=== PATIENT | female | born 1950 | race Caucasian/White ===

== ENCOUNTER 2019-12-22 18:43 | Emergency (ER) | payer OTHER ==
[2019-12-22] MEDS ORDERED: LORazepam 2 MG/ML VIAL ONE (19:20)
--- NOTE | 2019-12-22 19:33 | RAD REPORT ---
EXAM DESCRIPTION: Brenden Single View12/22/2019 7:27 pm CLINICAL HISTORY: Hypertension/slurred speech COMPARISON: 2010 FINDINGS: The lungs appear clear of acute infiltrate. The heart is normal size IMPRESSION: No acute abnormalities displayed
--- NOTE | 2019-12-22 19:33 | RAD REPORT ---
EXAM DESCRIPTION: CT - Head Brain Wo Cont - 12/22/2019 7:18 pm CLINICAL HISTORY: Slurred speech COMPARISON: September 2019 MRI TECHNIQUE: Computed axial tomography of the head was obtained. IV contrast was not requested. All CT scans are performed using dose optimization technique as appropriate and may include automated exposure control or mA/KV adjustment according to patient size. FINDINGS: An intracranial bleed is not seen . The ventricles are normal in caliber. No extra-axial fluid collection is noted. Mild to moderate low-density areas within periventricular, deep and subcortical white matter likely r epresent ischemic changes secondary to small vessel disease. Fluid within the sinuses/ mastoids is not seen. IMPRESSION: No acute intracranial abnormality is seen. If patient's symptoms persist MRI of the bra in would be recommended. Ran Page of the emergency room notified 727 PM December 22, 2019
[2019-12-22 19:42] LABS: Absolute Lymphocytes (CBC) 1.3 K/uL (0.7-4.9); Basophils % 0.2 % (0-1.3); Hematocrit 27.8 % (36.0-45.0); Lymphocytes % 11.3 % (15.3-44.8); RBC Red Blood Cell Count 3.09 M/uL (3.86-4.86)
[2019-12-22] MEDS ORDERED: NA CHLORIDE 0.9% 1,000 ML ONE (19:42)
[2019-12-22 19:43] LABS: Protime INR 0.85
[2019-12-22] MEDS ORDERED: ALTEPLASE 100 ML IV ONE (19:57)
[2019-12-22 19:59] LABS: ALT/SGPT 10 U/L (12-78); AST/SGOT 14 U/L (15-37); Albumin 2.2 g/dL (3.4-5.0); Alkaline Phosphatase 103 U/L (45-117); BUN Blood Urea Nitrogen 22 mg/dL (7-18); Bicarbonate 26 mmol/L (21-32); Bilirubin Direct < 0.1 mg/dL (0-0.2); Bilirubin Total 0.3 mg/dL (0.2-1.0); Glucose Level 96 mg/dL (74-106); Magnesium 1.8 mg/dL (1.8-2.4); NT PRO-BNP 7336 pg/mL (<125); Potassium 3.9 mmol/L (3.5-5.1); Protein, Total 5.7 g/dL (6.4-8.2); Sodium Level 141 mmol/L (136-145); Troponin (Emerg Dept Use Only) 0.06 ng/mL (0.0-0.045)
[2019-12-22] MEDS ORDERED: NA CHLORIDE 0.9% 100 ML IV ONE ×2 (20:14→20:59)
--- NOTE | 2019-12-22 20:40 | ER ---
Nurse's Notes [facility] Name: Talia Nielson Age: 69 yrs Sex: Female : 1950 Arrival Date: 12/22/2019 Time: 18:47 Bed 6 Private MD: Diagnosis: Aphasia following cerebral infarction Presentation: 12/21 18:47 Chief complaint: EMS states: Pt from [place], staff reports that pt has unequal ph pupils and slurred speech, hx dysphagia and slurred speech, pupils equal for EMS, BGL 124, pt asleep upon arrival. Coronavirus screen: Patient denies a cough. Patient denies shortness of breath or difficulty breathing. Patient denies measured and/or subjective temperature greater than 100.4F prior to today's visit. Patient denies travel on a cruise ship or to a country the [facility] currently lists as an affected area. Patient denies contact with known and/or suspected case of COVID-19. Ebola Screen: No symptoms or risks identified at this time. No acute neurological deficit is noted. The patients blood glucose was checked before arriving to the hospital and was found to be normal. Initial Sepsis Screen: Does the patient meet any 2 criteria? No. Patient's initial sepsis screen is negative. Does the patient have a suspected source of infection? No. Patient's initial sepsis screen is negative. Risk Assessment: Do you want to hurt yourself or someone else? Patient reports no desire to harm self or others. Onset of symptoms was December 22, 2019. 18:47 Method Of Arrival: EMS: [facility] 18:47 Acuity: LIZZ 3 ph Triage Assessment: 21:31 The onset of the patients symptoms was December 22, 2019 at 17:30. General: Appears in no rv apparent distress. General: Behavior is restless. Pain: Unable to use pain scale. Patient is disoriented. Neuro: Reports. Cardiovascular: Patient's skin is warm and dry. Stroke Activation: Symptom onset < 3 hours Physician: Stroke Attending; Name: ; Notified At: ; Arrived At: Physician: Chief Stroke Resident; Name: ; Notified At: ; Arrived At: Physician: Stroke Resident; Name: ; Notified At: ; Arrived At: Physician: ED Attending; Name: ; Notified At: ; Arrived At: Physician: ED Resident; Name: ; Notified At: ; Arrived At: Historical: - Allergies: 19:17 No Known Allergies; ph - Home Meds: 19:17 aspirin 81 mg Oral chew 1 tab once daily [Active]; atorvastatin 10 mg oral tab 1 tab ph once daily [Active]; metformin 500 mg Oral tab 1 tab 2 times per day [Active]; Nystatin Topical [Active]; olanzapine 10 mg oral tab 1 tab once daily [Active]; omeprazole 20 mg Oral cpDR 1 cap once daily [Active]; Remeron 15 mg Oral tab 1 tab once daily [Active]; risperidone 0.25 mg oral tab 1 tabs 2 times per day [Active]; Tegretol XR 200 mg Oral Tb12 1 tab daily [Active]; Tegretol XR 400 mg Oral Tb12 1 tab daily [Active]; - PMHx: 19:17 UTI; Schizophrenia; Alzheimers; dysphagia; Hypothyroidism; Diabetes - NIDDM; ph Hyperlipidemia; major depressive disorder; Anxiety; ataxia; slurred speech; Hypertension; COPD; GERD; constipation; - Immunization history:: Adult Immunizations unknown. - Social history:: Smoking status: unknown. Screenin:13 Abuse screen: Denies threats or abuse. Denies injuries from another. Nutritional rv screening: No deficits noted. Tuberculosis screening: No symptoms or risk factors identified. Fall Risk None identified. Assessment: 18:52 Reassessment: ERP at bedside to assess pt. ph 19:30 VAN Scoring: Arm Drift: Minor drift Visual Disturbance: Aphasia: Patient exhibits both rv expressive and receptive aphasia. Provider notified of +VAN scoring. The patient has not been NPO before screening. The patient is alert, and able to follow commands. The patient exhibits slurred or garbled speech. The patient is exhibiting difficulty speaking. The patient is exhibiting difficulty understanding words. The patient is able to swallow own secretions with no drooling or need for suction. Patient tolerated one teaspoon of water. No drooling, immediate coughing, gurgling, or clearing of the throat was noted. The patient tolerated 90mL of water. No drooling, immediate coughing, gurgling, or clearing of the throat was noted. The patient passed the bedside swallow screening. Oral medications may be given as ordered. Contact Physician for further diet orders. Provider notified of bedside swallow screening results: Ran TOTH. General: Appears in no apparent distress. Behavior is calm, cooperative. Pain: Unable to use pain scale. Patient is disoriented. Neuro: Level of Consciousness is confused. Cardiovascular: Patient's skin is warm and dry. Rhythm is sinus tachycardia. Respiratory: Airway is patent Breath sounds are clear bilaterally. Derm: Skin with poor turgor. 20:00 T-PA (Activase) Screening: Indications: Definite evidence of stroke, ischemic, embolic, rv or hypertensive: Yes. Treatment will start within 4.5 hours onset of symptoms: Yes. No evidence of intracranial hemorrhage or CT of head and no evidence of peripheral hemorrhage or recent CVA: Yes. 21:00 Reassessment: talked to patient's sister, Leola Ortiz, updated on the treatment and rv plan of care. 21:20 Reassessment: given report to Charissa Schafer of [facility]. rv 21:49 Reassessment: Patient appears in no apparent distress at this time. no change from rv prior assessment after TPA administration. 21:59 Reassessment: given report to [facility]. transferred to [facility] via EMS. rv Vital Signs: 18:47 BP 114 / 73; Pulse 106; Resp 18; Temp 97.6(TE); Pulse Ox 100% on R/A; Weight 34.75 kg rv (M); 19:30 BP 126 / 69; Pulse 94; Resp 20; Pulse Ox 96% on R/A; rv 19:45 BP 113 / 67; Pulse 88; Resp 21; Pulse Ox 99% on 2 lpm NC; rv 20:00 BP 93 / 50; Pulse 81; Resp 14; Pulse Ox 100% on 2 lpm NC; rv 20:30 BP 144 / 68; Pulse 95; Resp 16; Pulse Ox 100% on 2 lpm NC; rv 20:45 BP 161 / 106; Pulse 97; Resp 17; Pulse Ox 100% on 2 lpm NC; rv 21:00 BP 128 / 70; Pulse 97; Resp 14; Pulse Ox 100% on 2 lpm NC; rv 21:15 BP 131 / 67; Pulse 85; Resp 13; Pulse Ox 100% on 2 lpm NC; rv 21:30 BP 122 / 61; Pulse 87; Resp 14; Pulse Ox 100% on 2 lpm NC; rv Creighton Coma Score: 19:30 Eye Response: spontaneous(4). Verbal Response: confused(4). Motor Response: localizes rv pain(5). Total: 13. 20:00 Eye Response: spontaneous(4). Verbal Response: confused(4). Motor Response: localizes rv pain(5). Total: 13. 21:00 Eye Response: spontaneous(4). Verbal Response: confused(4). Motor Response: localizes rv pain(5). Total: 13. 21:49 Eye Response: spontaneous(4). Verbal Response: confused(4). Motor Response: localizes rv pain(5). Total: 13. NIH Stroke Scale Scores: 19:25 NIHSS Score: 6 cp 19:30 NIHSS Score: 22 rv ED Course: 18:47 Patient arrived in ED. ph 18:47 Ran Correia PA is PHCP. cp 18:47 Luis Borges MD is Attending Physician. cp 19:00 Patient has correct armband on for positive identification. Placed in gown. Bed in low rv position. Side rails up X2. 19:00 desk monitor on. Pulse ox on. NIBP on. rv 19:03 Triage completed. ph 19:18 CT Head Brain wo Cont In Process Unspecified. EDMS 19:18 Arm band placed on Patient placed. ph 19:28 XRAY Chest (1 view) In Process Unspecified. EDMS 19:30 Inserted saline lock: 20 gauge in left forearm, using aseptic technique. Blood rv collected. 19:40 Inserted saline lock: 20 gauge in right forearm, using aseptic technique. rv 19:53 Niraj Smith RN is Primary Nurse. rv 19:57 Contacted [facility] transfer center for initiate transfer. Spoke with Jazmine AMADOR. [facility] 20:48 Valentino Burgess MD is Attending Physician. cp 22:00 No provider procedures requiring assistance completed. IV is patent, with fluids rv infusing freely, with good blood return, right and left arm IV access.. Patient transferred, IV remains in place. Administered Medications: 19:40 Drug: Ativan 0.5 mg Route: IVP; Site: left forearm; rv 21:58 Follow up: Response: No adverse reaction rv 20:00 Drug: Alteplase {Co-Signature: bb (Josefa Flowers RN).} Route: IV Thrombolytics; Rate: rv calculated rate; 21:00 Follow up: Response: No adverse reaction rv 21:00 Follow up: Response: No adverse reaction rv 21:58 Follow up: Response: No change in condition rv 20:20 CANCELLED (Physician Discretion): NS 0.9% 1000 ml IV at 75 ml/hr continuous cp 21:35 Drug: foLIC Acid 1 mg Route: IVPB; Site: right forearm; rv 21:58 Follow up: IV Status: Completed infusion rv Point of Care Testing: Blood Glucose: 19:30 Blood Glucose: 92 mg/dL; rv Ranges: Outcome: 20:40 ER care complete, transfer ordered by . cp 22:00 Transferred by ground EMS to [facility], Transfer form completed. rv X-rays sent w/ patient. 22:00 Condition: stable 22:00 Instructed on the need for transfer. 22:10 Patient left the ED. rv NIH Stroke Scale - NIH Stroke Score Date: 12/22/2019 Time: 19:25 Total Score = 6 1a. Level of Consciousness (LOC) - 0(Alert) 1b. Level of Consciousness (LOC) (Year \T\ Age) - 2(Neither) 1c. LOC Commands (Open \T\ Closes Eyes/Self Propelled Mining Machine Operator) - 0(Both) 2. Best Gaze (Lateral Gaze Paresis) - 0(Normal) 3. Visual Field Loss - 0(No visual loss) 4. Facial Palsy - 0(Normal) 5a. Left Arm: Motor (10-second hold) - 0(No drift) 5b. Right Arm: Motor (10-second hold) - 0(No drift) 6a. Left Leg: Motor (5-second hold - always test supine) - 0(No drift) 6b. Right Leg: Motor (5-second hold - always test supine) - 0(No drift) 7. Limb Ataxia (finger/nose \T\ heel/holman - test with eyes open) - 0(Absent) 8. Sensory Loss (pinprick arms/legs/face) - 0(Normal) 9. Best Language: Aphasia (description/naming/reading) - 2(Severe aphasia) 10. Dysarthria (speech clarity - read or repeat words) - 2(Severe) 11. Extinction and Inattention (visual/tactile/auditory/spatial/personal) - 0(No abnormality) Initials: cp NIH Stroke Scale - NIH Stroke Score Date: 12/22/2019 Time: 19:30 Total Score = 22 1a. Level of Consciousness (LOC) - 1(Not Alert) 1b. Level of Consciousness (LOC) (Year \T\ Age) - 2(Neither) 1c. LOC Commands (Open \T\ Closes Eyes/Self Propelled Mining Machine Operator) - 2(Neither) 2. Best Gaze (Lateral Gaze Paresis) - 2(Forced deviation) 3. Visual Field Loss - 2(Complete hemianopia) 4. Facial Palsy - 2(Partial paralysis) 5a. Left Arm: Motor (10-second hold) - 2(Drift, some effort against gravity) 5b. Right Arm: Motor (10-second hold) - 0(No drift) 6a. Left Leg: Motor (5-second hold - always test supine) - 1(Drift) 6b. Right Leg: Motor (5-second hold - always test supine) - 1(Drift) 7. Limb Ataxia (finger/nose \T\ heel/holman - test with eyes open) - 2(Present in two limbs) 8. Sensory Loss (pinprick arms/legs/face) - 0(Normal) 9. Best Language: Aphasia (description/naming/reading) - 2(Severe aphasia) 10. Dysarthria (speech clarity - read or repeat words) - 2(Severe) 11. Extinction and Inattention (visual/tactile/auditory/spatial/personal) - 1(Present) Initials: rv Signatures: Dispatcher [employer] EDNan Mckee RN RN ph Bren, Ran, Niraj Daley cp, RN RN Brendan, [place] [address] Josefa Flowers RN Corrections: (The following items were deleted from the chart) 19:58 18:47 BP 114 / 73; Pulse 106bpm; Resp 18bpm; Pulse Ox 100% RA; Temp 97.6F rv Temporal; 76.6 kg; ph 21:34 19:15 Inserted saline lock: 20 gauge in left forearm, using aseptic technique. rv Blood collected. rv 21:34 19:30 Inserted saline lock: 20 gauge in right forearm, using aseptic technique. rv rv 21:45 19:15 Blood Glucose: Blood Glucose Reading=92 mg/dL. rv rv
--- NOTE | 2019-12-22 20:40 | EDPHYS ---
Physician Documentation [facility] Name: Talia Nielson Age: 69 yrs Sex: Female : 1950 Arrival Date: 12/22/2019 Time: 18:47 Bed 6 Private MD: ED Physician Valentino Burgess HPI: 12/21 19:14 This 69 yrs old Female presents to ER via EMS with complaints of Slurred cp Speech. 19:14 The patient presents to the emergency department with a speech or higher order brain cp function problem, aphasia, that is moderate. 19:15 The patient's problem is reported as dysphasia, incoherent speech. Onset: The cp symptoms/episode began/occurred today, last known normal was 1729. Duration: The episode is continuous. 19:15 Associated signs and symptoms: Pertinent positives: agitation. Patient's baseline: cp Neuro: alert but confused, Motor: no deficits, Ambulation: walks with assist only, Speech: slurred, but speech is comprehensible . Historical: - Allergies: 19:17 No Known Allergies; ph - Home Meds: 19:17 aspirin 81 mg Oral chew 1 tab once daily [Active]; atorvastatin 10 mg oral tab 1 tab ph once daily [Active]; metformin 500 mg Oral tab 1 tab 2 times per day [Active]; Nystatin Topical [Active]; olanzapine 10 mg oral tab 1 tab once daily [Active]; omeprazole 20 mg Oral cpDR 1 cap once daily [Active]; Remeron 15 mg Oral tab 1 tab once daily [Active]; risperidone 0.25 mg oral tab 1 tabs 2 times per day [Active]; Tegretol XR 200 mg Oral Tb12 1 tab daily [Active]; Tegretol XR 400 mg Oral Tb12 1 tab daily [Active]; - PMHx: 19:17 UTI; Schizophrenia; Alzheimers; dysphagia; Hypothyroidism; Diabetes - NIDDM; ph Hyperlipidemia; major depressive disorder; Anxiety; ataxia; slurred speech; Hypertension; COPD; GERD; constipation; - Immunization history:: Adult Immunizations unknown. - Social history:: Smoking status: unknown. ROS: 19:20 Constitutional: Negative for fever. cp 19:20 Neuro: Positive for speech changes. cp 19:20 Unable to obtain ROS due to patient's speech is incomprehensible. Exam: 19:25 Constitutional: The patient appears in no acute distress, alert, awake, cp non-diaphoretic, non-toxic, well developed, well nourished, afebrile 19:25 Head/Face: Normocephalic, atraumatic. cp 19:25 Eyes: Periorbital structures: appear normal, Pupils: equal, round, and reactive to light and accomodation, Extraocular movements: intact throughout, Conjunctiva: normal, no exudate, no injection, Lids and lashes: appear normal, bilaterally. 19:25 ENT: External ear(s): are unremarkable, Ear canal(s): are normal, clear, TM's: dullness, bilaterally, Nose: is normal, Mouth: Lips: dry, Oral mucosa: dry, Posterior pharynx: Airway: no evidence of obstruction, patent. 19:25 Chest/axilla: Inspection: normal, Palpation: is normal, no crepitus, no tenderness. 19:25 Cardiovascular: Rate: tachycardic, Rhythm: regular, JVD: is not appreciated. 19:25 Respiratory: the patient does not display signs of respiratory distress, Respirations: normal, no use of accessory muscles, labored breathing, is not present, Breath sounds: are clear throughout, no decreased breath sounds, no stridor, no wheezing. 19:25 Abdomen/GI: Inspection: abdomen appears normal, Bowel sounds: active, all quadrants, Palpation: abdomen is soft and non-tender, in all quadrants. 19:28 Radiologist reports: no acute findings cp 20:00 ECG was reviewed by the Attending Physician. cp Vital Signs: 18:47 BP 114 / 73; Pulse 106; Resp 18; Temp 97.6(TE); Pulse Ox 100% on R/A; Weight 34.75 kg rv (M); 19:30 BP 126 / 69; Pulse 94; Resp 20; Pulse Ox 96% on R/A; rv 19:45 BP 113 / 67; Pulse 88; Resp 21; Pulse Ox 99% on 2 lpm NC; rv 20:00 BP 93 / 50; Pulse 81; Resp 14; Pulse Ox 100% on 2 lpm NC; rv 20:30 BP 144 / 68; Pulse 95; Resp 16; Pulse Ox 100% on 2 lpm NC; rv 20:45 BP 161 / 106; Pulse 97; Resp 17; Pulse Ox 100% on 2 lpm NC; rv 21:00 BP 128 / 70; Pulse 97; Resp 14; Pulse Ox 100% on 2 lpm NC; rv 21:15 BP 131 / 67; Pulse 85; Resp 13; Pulse Ox 100% on 2 lpm NC; rv 21:30 BP 122 / 61; Pulse 87; Resp 14; Pulse Ox 100% on 2 lpm NC; rv NIH Stroke Scale Scores: 19:25 NIHSS Score: 6 cp 19:30 NIHSS Score: 22 rv Corinne Coma Score: 19:30 Eye Response: spontaneous(4). Verbal Response: confused(4). Motor Response: localizes rv pain(5). Total: 13. 20:00 Eye Response: spontaneous(4). Verbal Response: confused(4). Motor Response: localizes rv pain(5). Total: 13. 21:00 Eye Response: spontaneous(4). Verbal Response: confused(4). Motor Response: localizes rv pain(5). Total: 13. 21:49 Eye Response: spontaneous(4). Verbal Response: confused(4). Motor Response: localizes rv pain(5). Total: 13. MDM: 18:54 Patient medically screened. cp 19:52 Physician consultation: Allen Arambula MD was called at 19:50, was contacted at 19:50, cp regarding consult, patient's condition, recommends administration of tpa and transfer to higher level of care. 20:25 Data reviewed: vital signs, nurses notes, lab test result(s), EKG, radiologic studies, CT scan, plain films. 21:00 Physician consultation: was contacted at 20:35, regarding regarding transfer, to [facility]. consult, patient's condition, DR Harshad Kan, neurologist, will accept patient for continued care. 12/21 18:54 Order name: Basic Metabolic Panel cp 12/21 18:54 Order name: CBC with Diff cp 12/21 18:54 Order name: LFT's; Complete Time: 20:19 cp 12/21 20:19 Interpretation: Normal except: AST 14; ALT 10; TP 5.7; ALB 2.2; A/G 0.6. cp 12/21 18:54 Order name: Magnesium; Complete Time: 20:19 cp 12/21 18:54 Order name: NT PRO-BNP; Complete Time: 20:19 cp 12/21 18:54 Order name: PT-INR; Complete Time: 19:58 cp 12/21 18:54 Order name: Troponin (emerg Dept Use Only); Complete Time: 20:19 cp 12/21 20:19 Interpretation: Abnormal: TROPED 0.06. cp 12/21 18:54 Order name: XRAY Chest (1 view); Complete Time: 19:58 cp 12/21 18:55 Order name: Basic Metabolic Panel; Complete Time: 20:19 EDMS 12/21 20:19 Interpretation: Normal except: BUN 22; CA 8.0. cp 12/21 18:55 Order name: CBC with Automated Diff; Complete Time: 19:58 EDMS 12/21 19:58 Interpretation: Normal except: WBC 11.7; RBC 3.09; HGB 9.1; HCT 27.8; MCV 89.8; PLT cp 483; RDW 16.4; MPV 7.0; GUS% 80.2; LYM% 11.3; NEUT A 9.4. 12/21 18:55 Order name: CT Head Brain wo Cont; Complete Time: 19:58 cp 12/21 19:58 Interpretation: Report reviewed. 12/21 19:45 Order name: Glucose, Ancillary Testing; Complete Time: 19:58 EDMS 12/21 18:54 Order name: EKG; Complete Time: 18:55 cp 12/21 18:54 Order name: Cardiac monitoring; Complete Time: 19:20 cp 12/21 18:54 Order name: EKG - Nurse/Tech; Complete Time: 19:48 cp 12/21 18:54 Order name: IV Saline Lock; Complete Time: 20:42 cp 12/21 18:54 Order name: Labs collected and sent; Complete Time: 20:42 cp 12/21 18:54 Order name: O2 Per Protocol; Complete Time: 19:20 cp 12/21 18:54 Order name: O2 Sat Monitoring; Complete Time: 19:20 cp 12/21 19:02 Order name: Swallow Screen; Complete Time: 19:40 cp EC:00 Rate is 96 beats/min. Rhythm is regular. SC interval is normal. QRS interval is normal. cp QT interval is prolonged at 368 msec. T waves are Inverted in leads aVL, V2, V3, V4, V5, V6. Administered Medications: 19:40 Drug: Ativan 0.5 mg Route: IVP; Site: left forearm; rv 21:58 Follow up: Response: No adverse reaction rv 20:00 Drug: Alteplase {Co-Signature: shannon (Josefa Flowers RN).} Route: IV Thrombolytics; Rate: rv calculated rate; 21:00 Follow up: Response: No adverse reaction rv 21:00 Follow up: Response: No adverse reaction rv 21:58 Follow up: Response: No change in condition rv 20:20 CANCELLED (Physician Discretion): NS 0.9% 1000 ml IV at 75 ml/hr continuous cp 21:35 Drug: foLIC Acid 1 mg Route: IVPB; Site: right forearm; rv 21:58 Follow up: IV Status: Completed infusion rv Point of Care Testing: Blood Glucose: 19:30 Blood Glucose: 92 mg/dL; rv Ranges: Critical Glucose Levels:Adult <50 mg/dl or >400 mg/dl <40 mg/dl or >180 mg/dl Disposition: 21:00 Chart complete. cp 12/22 00:05 Co-signature as Attending Physician, Valentino Burgess MD I agree with the assessment and tw4 plan of care. Disposition: 12/22/19 20:40 Transfer ordered to [facility]. Diagnosis is Aphasia following cerebral infarction. - Reason for transfer: Higher level of care. - Accepting physician is DR Harshad Kan. - Condition is Stable. - Problem is new. - Symptoms are unchanged. NIH Stroke Scale - NIH Stroke Score Date: 12/22/2019 Time: 19:25 Total Score = 6 1a. Level of Consciousness (LOC) - 0(Alert) 1b. Level of Consciousness (LOC) (Year \T\ Age) - 2(Neither) 1c. LOC Commands (Open \T\ Closes Eyes/Surgery Technician) - 0(Both) 2. Best Gaze (Lateral Gaze Paresis) - 0(Normal) 3. Visual Field Loss - 0(No visual loss) 4. Facial Palsy - 0(Normal) 5a. Left Arm: Motor (10-second hold) - 0(No drift) 5b. Right Arm: Motor (10-second hold) - 0(No drift) 6a. Left Leg: Motor (5-second hold - always test supine) - 0(No drift) 6b. Right Leg: Motor (5-second hold - always test supine) - 0(No drift) 7. Limb Ataxia (finger/nose \T\ heel/holman - test with eyes open) - 0(Absent) 8. Sensory Loss (pinprick arms/legs/face) - 0(Normal) 9. Best Language: Aphasia (description/naming/reading) - 2(Severe aphasia) 10. Dysarthria (speech clarity - read or repeat words) - 2(Severe) 11. Extinction and Inattention (visual/tactile/auditory/spatial/personal) - 0(No abnormality) Initials: cp NIH Stroke Scale - NIH Stroke Score Date: 12/22/2019 Time: 19:30 Total Score = 22 1a. Level of Consciousness (LOC) - 1(Not Alert) 1b. Level of Consciousness (LOC) (Year \T\ Age) - 2(Neither) 1c. LOC Commands (Open \T\ Closes Eyes/Surgery Technician) - 2(Neither) 2. Best Gaze (Lateral Gaze Paresis) - 2(Forced deviation) 3. Visual Field Loss - 2(Complete hemianopia) 4. Facial Palsy - 2(Partial paralysis) 5a. Left Arm: Motor (10-second hold) - 2(Drift, some effort against gravity) 5b. Right Arm: Motor (10-second hold) - 0(No drift) 6a. Left Leg: Motor (5-second hold - always test supine) - 1(Drift) 6b. Right Leg: Motor (5-second hold - always test supine) - 1(Drift) 7. Limb Ataxia (finger/nose \T\ heel/holman - test with eyes open) - 2(Present in two limbs) 8. Sensory Loss (pinprick arms/legs/face) - 0(Normal) 9. Best Language: Aphasia (description/naming/reading) - 2(Severe aphasia) 10. Dysarthria (speech clarity - read or repeat words) - 2(Severe) 11. Extinction and Inattention (visual/tactile/auditory/spatial/personal) - 1(Present) Initials: rv Signatures: Dispatcher [employer] Nan Rojas RN RN ph Ran Correia PA PA Valentino Cuellar MD MD tw4 Niraj Smith RN RN rv Josefa Flowers RN bb Corrections: (The following items were deleted from the chart) 04/17 20:19 20:19 Normal except: BUN 22. cp cp 20:20 19:35 NS 0.9% 1000 ml IV at 75 ml/hr continuous ordered. cp cp 21:08 20:40 12/22/2019 20:[address] [facility]. Diagnosis is Aphasia following cerebral infarction. Reason for transfer: Higher level of care. Accepting physician is . Condition is Stable. Problem is new. Symptoms are unchanged. cp 22:10 21:08 12/22/2019 20:40 Transfer ordered to [facility]. Diagnosis is Aphasia following cerebral infarction. Reason for transfer: Higher level of care. Accepting physician is DR Harshad Kan. Condition is Stable. Problem is new. Symptoms are unchanged. cp
[2019-12-22] MEDS ORDERED: FOLIC ACID 5 MG/ML VIAL ONE (21:45)
[2019-12-22 22:21] VITALS: TEMP 97.6
[2019-12-22 22:25] VITALS: O2SAT 100
[2019-12-22 22:31] VITALS: BP 122/61
--- NOTE | 2019-12-24 07:41 | EKG ---
Test Date: 2019-12-22 Test Time: 19:44:48 Substation Designer: SONJA MEASUREMENT RESULTS: Intervals: Rate: 96 RI: 140 QRSD: 74 QT: 368 QTc: 464 Rolfe: P: 61 RI: 140 QRS: 36 T: 140 INTERPRETIVE STATEMENTS: Normal sinus rhythm T wave abnormality, consider anterolateral ischemia Prolonged QT Abnormal ECG Compared to ECG 05/25/2011 07:57:45 Prolonged QT interval now present Sinus bradycardia no longer present T-wave abnormality still present Possible ischemia still present Electronically Signed On 12-24-19 07:39:13 CDT by Ketan Boss
== END 2019-12-22 22:10 | disposition short-term general hospital (02) ==
LOC: ER 18:43
DX: I69.320 Aphasia following cerebral infarction (principal); I10 Essential (primary) hypertension; E11.9 Type 2 diabetes mellitus without complications; E03.9 Hypothyroidism, unspecified; J44.9 Chronic obstructive pulmonary disease, unspecified; Z79.82 Long term (current) use of aspirin; G30.9 Alzheimer's disease, unspecified; F02.80 Dementia in other diseases classified elsewhere, unspecified severity, without behavioral disturbance, psychotic disturbance, mood disturbance, and anxiety; F20.9 Schizophrenia, unspecified
CPT/HCPCS: 96365; 92977; 93005; 85025; 80048; 36415; 83735; 85610; 82947; 80076; 84484; 83880; 70450; 71045; 96375; 99291; J2997; J7030

== ENCOUNTER 2020-01-18 19:14 | Inpatient (IN) | payer OTHER ==
--- OUTSIDE RECORDS SUMMARY | 2020-01-18 19:17 | XMS REPORT | Clinical Summary ---
:1950 Author Organization [facility] Address [address] [place] [address] Care Team Providers Name Role Phone Unavailable Primary Care Provider Unavailable Allergies No Known Allergies Medications Medication Sig Dispensed Refills Start Date End Date Status nystatin Apply topically 0 Acti ve (MYCOSTATIN) 2 (two) times 100,000 unit/gram daily Apply to cream buttocks topically for irritation . OLANZapine Take 10 mg by 0 Activ e (ZYPREXA) 10 MG mouth nightly. tablet omeprazole Take 20 mg by 0 Activ e (PRILOSEC) 20 MG mouth daily. capsule mirtazapine Take 15 mg by 0 Acti ve (REMERON) 15 MG mouth nightly. tablet risperiDONE Take 0.25 mg by 0 Ac tive (RISPERDAL) 0.25 MG mouth 2 (two) tabletIndications: times daily. schizophrenia atorvastatin Take 10 mg by 0 Dis continued (LIPITOR) 10 MG mouth daily. 0 tablet metFORMIN Take 500 mg by 0 Disco ntinued (GLUCOPHAGE) 500 MG mouth 2 (two) 0 tablet times daily with breakfast and dinner. Active Problems Problem Noted Date Tissue plasminogen activator (tPA) administered at ot er facility within 12/23/2019 24 hours before current admission Acute ischemic stroke 12/23/2019 Diabetes mellitus 12/23/2019 Hyperlipidemia 12/23/2019 Hypertension 12/23/2019 Hypothyroidism 12/23/2019 Schizophrenia 12/23/2019 Tremor 12/23/2019 Encounters Date Type Specialty Care Team Description 12/25/2019 Telephone Emergency Mando Laboy, Medicine RN 12/23/2019 Travel 12/23/2019 Orders Only General Internal Medicine 12/22/2019 - Hospital General Internal Lucius Patricia, Acute isc hemic stroke (HCC); 12/26/2019 Encounter Medicine MD Received tissue plasminogen activator (t -PA) less than 24 hours prior to arrival; Genia Croft Essential hyp ertension; MD Jesus Acute encephalopathy; Estephania Chapin Undifferentiate d schizophrenia (HCC); MD Rayne Tremor; Jong Lan Acute cystitis without hematuria MD Porfirio after 01/17/2019 Social History Tobacco Use Types Packs/Day Years Used Date Never Smoker Smokeless Tobacco: Current User Chew Sex Assigned at Date Recorded Not on file Job Start Date Occupation Industry Not on file Not on file Not on file Travel History Travel Start Travel End No recent travel history available. Last Filed Vital Signs Vital Sign Reading Time Taken Blood Pressure 151/68 12/26/2019 11:22 AM CDT Pulse 99 12/26/2019 11:22 AM CDT Temperature 36.2 C (97.1 F) 12/26/2019 11:22 AM CDT Respiratory Rate 17 12/26/2019 11:22 AM CDT Oxygen Saturation 99% 12/26/2019 11:22 AM CDT Inhaled Oxygen Concentration - - Weight 38.7 kg (85 lb 5.1 oz) 12/22/2019 11:45 PM CDT Height 139.7 cm (4' 7") 12/22/2019 11:45 PM CDT Body Mass Index 19.83 12/22/2019 11:45 PM CDT Plan of Treatment Not on file Procedures Procedure Name Priority Date/Time Associated Comments Diagnosis RHYTHM STRIP - SCAN 12/27/2019 2:00 PM CDT CBC W/PLT COUNT & Routine 12/26/2019 3:54 Result s for this AUTO DIFFERENTIAL AM CDT procedure are in the results section. FERRITIN Routine 12/26/2019 3:54 Results for this AM CDT procedure are i n the results section. IRON, TIBC, % SAT. Routine 12/26/2019 3:54 Resul ts for this (WITHOUT FERRITIN) AM CDT procedure are in the results section. CBC W/PLT COUNT & Routine 12/26/2019 3:54 Result s for this AUTO DIFFERENTIAL AM CDT procedure are in the results section. XR ESOPH SWALLOW Routine 12/25/2019 1:09 Results for this FUNCTION W/CINE VIDEO PM CDT proced ure are in the results section. POCT-GLUCOSE METER Routine 12/25/2019 12:18 Resul ts for this PM CDT procedure are i n the results section. POCT-GLUCOSE METER Routine 12/25/2019 7:56 Resul ts for this AM CDT procedure are i n the results section. CBC W/PLT COUNT & Routine 12/25/2019 4:30 Result s for this AUTO DIFFERENTIAL AM CDT procedure are in the results section. CBC W/PLT COUNT & Routine 12/25/2019 4:30 Result s for this AUTO DIFFERENTIAL AM CDT procedure are in the results section. TROPONIN I Add-On 12/25/2019 3:47 Results for this AM CDT procedure are i n the results section. BASIC METABOLIC PANEL Routine 12/25/2019 3:47 Re sults for this (7) AM CDT procedure are i n the results section. ECG 12-LEAD Routine 12/24/2019 9:52 PM CDT Procedure Note - Interface, External Ris In - 12/24/2019 10:02 PM CDT Ventricular Rate 97 BPM Atrial Rate 97 BPM P-R Interval 136 ms QRS Duration 72 ms Q-T Interval 350 ms QTC Calculation(Bazett) 444 ms P [place] 67 degrees R [place] 39 degrees T [place] 148 degrees Sinus rhythm with occasional Premature ventricular complexes T wave abnormality, consider lateral ischemia Abnormal ECG When compared with ECG of 12:30, Premature ventricular comple xes are now Present ST no longer depressed in An terior leads ECG 12-LEAD STAT 12/24/2019 9:52 PM CDT Resu lts for this procedure are i n the results section . POCT-GLUCOSE METER Routine 12/24/2019 8:32 PM CDT Results for this procedure are i n the results section . CBC W/PLT COUNT & AUTO Routine 12/24/2019 9:01 AM CDT Results for this DIFFERENTIAL procedure are i n the results section . CBC W/PLT COUNT & AUTO Routine 12/24/2019 9:01 AM CDT Results for this DIFFERENTIAL procedure are i n the results section . TROPONIN I Add-On 12/24/2019 9:00 AM CDT Resu lts for this procedure are i n the results section . BASIC METABOLIC PANEL (7) Routine 12/24/2019 9:00 AM CDT Results for this procedure are i n the results section . POCT-GLUCOSE METER Routine 12/24/2019 7:37 AM CDT Results for this procedure are i n the results section . ECHOCARDIOGRAM REPORT - SCAN 12/23/2019 9:[address] BRAIN WITHOUT IV CONTRAST Routine 12/23/2019 6:38 PM CDT Results for this procedure are i n the results section . POCT-GLUCOSE METER Routine 12/23/2019 5:16 PM CDT Results for this procedure are i n the results section . ECG 12-LEAD Routine 12/23/2019 12:30 PM CDT Procedure Note - Interface, External Ris In - 12/23/2019 12:47 PM CDT Ventricular Rate 86 BPM Atrial Rate 86 BPM P-R Interval 140 ms QRS Duration 76 ms Q-T Interval 394 ms QTC Calculation(Bazett) 471 ms P [place] 73 degrees R [place] 43 degrees T [place] 151 degrees Normal sinus rhythm ST & Marked T wave abnormali ty, consider anterolateral ischemia Prolonged QT Abnormal ECG ECG 12-LEAD Routine 12/23/2019 12:30 PM CDT Resu lts for this procedure are i n the results section . POCT-GLUCOSE METER Routine 12/23/2019 12:12 PM CDT Results for this procedure are i n the results section . URINALYSIS W/ REFLEX URINE Routine 12/23/2019 11:50 AM CDT Results for this CULTURE procedure are i n the results section . URINE CULTURE Routine 12/23/2019 11:50 AM CDT Res ults for this procedure are i n the results section . SPUTUM CULTURE + GRAM STAIN Routine 12/23/2019 10:18 AM CDT Results for this procedure are i n the results section . XR CHEST 1 VIEW Routine 12/23/2019 10:10 AM CDT R esults for this PORTABLE/BEDSIDE procedure a re in the results section . 2D ECHO W/ DOPPLER Routine 12/23/2019 9:38 AM CDT Results for this (CW/PW/COLOR) procedure are in the results section . LACTIC ACID, ARTERIAL Routine 12/23/2019 9:25 AM CDT Results for this procedure are i n the results section . TROPONIN I Routine 12/23/2019 9:25 AM CDT Resu lts for this procedure are i n the results section . POCT-GLUCOSE METER Routine 12/23/2019 6:23 AM CDT Results for this procedure are i n the results section . CTA BRAIN Routine 12/23/2019 6:00 AM CDT Resu lts for this procedure are i n the results section . CT/CTA CAROTID Routine 12/23/2019 6:00 AM CDT Re sults for this procedure are i n the results section . LACTATE DEHYDROGENASE (LDH) Add-On 12/23/2019 3:52 AM CDT Results for this procedure are i n the results section . LIPID PANEL Routine 12/23/2019 3:52 AM CDT Resu lts for this procedure are i n the results section . CBC W/PLT COUNT & AUTO Routine 12/23/2019 12:23 AM CDT Results for this DIFFERENTIAL procedure are i n the results section . VITAMIN B12 AND FOLATE Add-On 12/23/2019 12:23 AM CDT Results for this procedure are i n the results section . VITAMIN B12 AND FOLATE Routine 12/23/2019 12:23 AM CDT Results for this procedure are i n the results section . TSH/FREE T4 IF INDICATED Routine 12/23/2019 12:23 AM CDT Results for this procedure are i n the results section . PROCALCITONIN Routine 12/23/2019 12:23 AM CDT Res ults for this procedure are i n the results section . RPR Routine 12/23/2019 12:23 AM CDT Resu lts for this procedure are i n the results section . HEPATIC FUNCTION PANEL Routine 12/23/2019 12:23 AM CDT Results for this procedure are i n the results section . HEMOGLOBIN A1C Routine 12/23/2019 12:23 AM CDT Re sults for this procedure are i n the results section . HOMOCYSTEINE Routine 12/23/2019 12:23 AM CDT Resu lts for this procedure are i n the results section . TROPONIN I Routine 12/23/2019 12:23 AM CDT Resu lts for this procedure are i n the results section . CBC W/PLT COUNT & AUTO Routine 12/23/2019 12:23 AM CDT Results for this DIFFERENTIAL procedure are i n the results section . BASIC METABOLIC PANEL (7) Routine 12/23/2019 12:23 AM CDT Results for this procedure are i n the results section . BLOOD CULTURE STAT 12/23/2019 12:23 AM CDT Res ults for this procedure are i n the results section . BLOOD CULTURE STAT 12/23/2019 12:21 AM CDT Res ults for this procedure are i n the results section . after 01/17/2019 Results RHYTHM STRIP - SCAN (12/27/2019 2:00 PM CDT) Narrative Performed At This result has an attachment that is no t available. Iron, TIBC, % sat. (without ferritin) (12/26/2019 3:54 AM CDT) Iron 40.0 40.0 - 160.0 ug/dL [facility] TIBC 161 (L) 250 - 450 ug/dL [facility] Iron % Saturation 25 20 - 55 % [facility] Specimen Blood Narrative Performed At Professor Of Special Education [place] - OLIVE Yeni [facility] Performing Organization Address City/State/Zipcode Phone Number [facility] [address] [place] [address] CENTER CBC with platelet count + automated diff (12/26/2019 3:54 AM CDT)Only the most recent of4 resultswithin the time period is included. WBC 8.5 3.5 - 10.5 K/L [facility] RBC 2.86 (L) 3.93 - 5.22 M/L [facility] Hemoglobin 8.3 (L) 11.2 - 15.7 GM/DL [facility] Hematocrit 26.0 (L) 34.1 - 44.9 % [facility] MCV 90.9 79.4 - 94.8 fL [facility] MCH 29.0 25.6 - 32.2 pg [facility] MCHC 31.9 (L) 32.2 - 35.5 GM/DL [facility] RDW 17.2 (H) 11.7 - 14.4 % [facility] Platelets 544 (H) 150 - 450 K/CU MM [facility] MPV 9.0 (L) 9.4 - 12.3 fL [facility] nRBC 0 0 - 0 /100 WBC [facility] % Neutros 64 % [facility] % Lymphs 25 % [facility] % Monos 9 % [facility] % Eos 1 % [facility] % Baso 0 % [facility] # Neutros 5.41 1.56 - 6.13 K/L [facility] # Lymphs 2.13 1.18 - 3.74 K/L [facility] # Monos 0.75 (H) 0.24 - 0.36 K/L [facility] # Eos 0.11 0.04 - 0.36 K/L [facility] # Baso 0.01 0.01 - 0.08 K/L [facility] Immature Granulocytes-Relative 1 0 - 1 % C [facility] Specimen Blood Performing Organization Address City/State/Zipcode Phone Number [facility] [address] [place] [address] CENTER Ferritin (12/26/2019 3:54 AM CDT) Ferritin 47.91 5.00 - 275.00 ng/mL [facility] Specimen Blood Narrative Performed At Professor Of Special Education ID - OLIVE W [facility] Performing Organization Address City/[facility]/Zipcode Phone Number [address] [address] CENTER [place] esoph swallow funct with cine video (12/25/2019 1:09 PM CDT) Specimen Narrative Performed At FINAL REPORT GE RIS Modified barium swallow exam with speech pathology service CLINICAL HISTORY: assess pharyngeal swal low function IMPRESSION: Please see the speech pathology service report for details. Barium contrast of multiple consistencie s is given to the patient to swallow. Fluoroscopic observation is per formed during swallowing. No aspiration is identified. Fluoro time:Two minutes Number of images: 2 Signed: Radha Joiner MD Report Verified Date/Time:12/25/2019 15:15:45 Reading Location: [facility] C013X Ortho Con sult Reading Room Procedure Note Interface, External Ris In - 12/25/2019 3:17 PM CDT FINAL REPORT Modified barium swallow exam with speech pathology service CLINICAL HISTORY: assess pharyngeal swal low function IMPRESSION: Please see the speech pathology service report for details. Barium contrast of multiple consistencie s is given to the patient to swallow. Fluoroscopic observation is per formed during swallowing. No aspiration is identified. Fluoro time: Two minutes Number of images: 2 Signed: Radha Joiner MD Report Verified Date/Time: 12/25/2019 1 5:15:45 Reading Location: [facility] C013X Ortho Con sult Reading Room Performing Organization Address City/[facility] Phone Number GE RIS POC-Glucose meter (12/25/2019 12:18 PM CDT)Only the most recent of7 results within the time period is included. POC-Glucose Meter 97Comment: : TESTED AT 70 - 110 mg/dL [address], [address]: Professor Of Special Education/Plate Hanger ID = [id number] for DELMAR WALLIS Specimen Blood Performing Organization Address [facility]/[place] [address] CENTER Troponin I (12/25/2019 3:47 AM CDT)Only the most recent of4 resultswithin the time period is included. Troponin I 0.03 0.00 - 0.03 ng/mL [facility] Specimen Blood Narrative Performed At Troponin I (TnI) levels must be interpreted [facility] in the context of the presenting symptoms and the clinical findings. Elevated TnI levels indicate myocardial damage, but are not specific for ischemic heart disease. Elevated TnI levels are seen in patients with other cardiac conditions (including myocarditis and congestive heart failure), and slight TnI elevations occur in patients with other conditions, including sepsis, renal failure, acidosis, acute neurological disease, and persistent tachyarrhythmia. Professor Of Special Education ID - ZORAN Garza Performing Organization Address [facility]/Zipcode Phone Number [facility] [address] [place] [address] CENTER Basic Metabolic Panel (12/25/2019 3:47 AM CDT)Only the most recent of3 results within the time period is included. Sodium 140 136 - 145 meq/L [facility] Potassium 4.1 3.5 - 5.1 meq/L [facility] Chloride 109 (H) 98 - 107 meq/L [facility] CO2 26 22 - 29 meq/L [facility] BUN 9 7 - 21 mg/dL [facility] Creatinine 0.55 (L) 0.57 - 1.25 mg/dL [facility] Glucose 98 70 - 105 mg/dL [facility] Calcium 7.8 (L) 8.4 - 10.2 mg/dL [facility] EGFR 109Comment: ESTIMATED GFR IS mL/min/1.73 sq m CH I [facility] NOT ACCURATE CREATININE [facility] CLEARANCE IN PREDICTING GLOMERULAR FILTRATION RATE. ESTIMATED GFR IS NOT APPLICABLE FOR DIALYSIS PATIENTS. Specimen Blood Narrative Performed At Professor Of Special Education ID - PIEL L [facility] CENTER Performing Organization Address [facility]/Zipcode Phone Number [facility] [address] [place] [address] [place] ECG 12 lead (12/24/2019 9:52 PM CDT)Only the most recent of2 resultswithin the time period is included. Specimen Narrative Performed At Ventricular Rate 97 BPM GE MUSE Atrial Rate 97 BPM P-R Interval 136 ms QRS Duration 72 ms Q-T Interval 350 ms QTC Calculation(Bazett) 444 ms P [place] 67 degrees R [place] 39 degrees T [place] 148 degrees Sinus rhythm with occasional Premature v entricular complexes T wave abnormality, consider lateral isc hemia Abnormal ECG When compared with ECG of 23-DEC-2019 12 :30, Premature ventricular complexes are now Present ST no longer depressed in Anterior leads Anterior T wave inversion has improved. Confirmed by Papa TRACY MICHAEL ([id number]) on 0 7:25:09 AM Procedure Note Interface, External Ris In - 12/25/2019 7:25 AM CDT Ventricular Rate 97 BPM Atrial Rate 97 BPM P-R Interval 136 ms QRS Duration 72 ms Q-T Interval 350 ms QTC Calculation(Bazett) 444 ms P [place] 67 degrees R [place] 39 degrees T [place] 148 degrees Sinus rhythm with occasional Premature v entricular complexes T wave abnormality, consider lateral isc hemia Abnormal ECG When compared with ECG of 23-DEC-2019 12 :30, Premature ventricular complexes are now Present ST no longer depressed in Anterior leads Anterior T wave inversion has improved. Confirmed by Papa TRACY MICHAEL ([id number]) on 12/25/2019 7:25:09 AM Performing Organization Address City/State/Zipcode Phone Number [employer] MUSE ECHOCARDIOGRAM REPORT - SCAN (12/23/2019 9:20 PM CDT) Narrative Performed At This result has an attachment that is no t available. CT brain without IV contrast (12/23/2019 6:38 PM CDT) Specimen Narrative Performed At FINAL REPORT [employer] CT, BRAIN, WITHOUT CONTRAST CLINICAL INDICATION:Stroke, follow u p COMPARISON: December 23, 2019 TECHNIQUE:Noncontrast axial CT imagi ng of the brain and skull. Coronal and sagittal reformats obtained. DOSE REDUCTION: Dose modulation, iterati ve reconstruction, and/or weight-based adjustment of the mA/kV was utilized to reduce the radiation dose to as low as reasonably a chievable. FINDINGS: Cerebral parenchyma: Global parenchymal volume loss and minimal white matter hypoattenuation. No mass, acute i ntracranial hemorrhage or acute cortical infarct. Cerebellum and brainstem: No acute findi ngs. Ventricles: No acute hydrocephalus. Extra-axial spaces: Unremarkable. Calvarium and skull base: Intact. Paranasal sinuses and mastoid air cells: Imaged chambers are without acute abnormality. Orbital contents: Included portions unre markable. Additional findings: None. IMPRESSION: No acute intracranial abnormality. Involutional and chronic microangiopathi c ischemic changes are stable. If there is persistent clinical concern for intracranial pathology, MR examination is recommended for furthe r characterization. Signed: Syd Cervantes MD Report Verified Date/Time:12/23/2019 23:55:53 Procedure Note Interface, External Ris In - 12/23/2019 11:58 PM CDT FINAL REPORT CT, BRAIN, WITHOUT CONTRAST CLINICAL INDICATION: Stroke, follow up COMPARISON: December 23, 2019 TECHNIQUE: Noncontrast axial CT imaging of the brain and skull. Coronal and sagittal reformats obtained. DOSE REDUCTION: Dose modulation, iterati ve reconstruction, and/or weight-based adjustment of the mA/kV was utilized to reduce the radiation dose to as low as reasonably a chievable. FINDINGS: Cerebral parenchyma: Global parenchymal volume loss and minimal white matter hypoattenuation. No mass, acute i ntracranial hemorrhage or acute cortical infarct. Cerebellum and brainstem: No acute findi ngs. Ventricles: No acute hydrocephalus. Extra-axial spaces: Unremarkable. Calvarium and skull base: Intact. Paranasal sinuses and mastoid air cells: Imaged chambers are without acute abnormality. Orbital contents: Included portions unre markable. Additional findings: None. IMPRESSION: No acute intracranial abnormality. Involutional and chronic microangiopathi c ischemic changes are stable. If there is persistent clinical concern for intracranial pathology, MR examination is recommended for furthe r characterization. Signed: Syd Cervantes MD Report Verified Date/Time: 12/23/2019 2 3:55:53 Performing Organization Address City/State/Zipcode Phone Number [facility] Urinalysis w/Microscopic + Reflex to Culture (12/23/2019 11:50 AM CDT) Color, UA Yellow [facility] Clarity, UA Hazy [facility] Specific [place], UA 1.029 1.001 - 1.035 [facility] pH, UA 6.0 5.0 - 8.0 [facility] Protein, UA Negative Negative [facility] Glucose, UA Negative Negative [facility] Ketones, UA Negative Negative [facility] Bilirubin, UA Negative Negative [facility] Blood, UA Negative Negative [facility] Nitrite, UA Positive (A) Negative [facility] Leukocytes, UA Large (A) Negative [facility] Urobilinogen, UA 0.2 0.2 - 1.0 mg/dL [facility] RBC, UA <1 /HPF [facility] WBC, UA 47 /HPF [facility] Bacteria, UA Few [facility] Mucus Few [facility] Squam Epithel, UA <1 /HPF [facility] Specimen Source [facility] Specimen Urine Narrative Performed At Professor Of Special Education ID - [auto] [facility] Professor Of Special Education ID - tech Performing Organization Address City/State/Zipcode Phone Number [facility] [address] [place] [address] CENTER Urine culture (12/23/2019 11:50 AM CDT) Result >100,000 col/mL Escherichia coli [facility] () [facility] Specimen Urine Organism Antibiotic Method Susceptibility Escherichia coli Amikacin <=2: Susceptibl e Escherichia coli Ampicillin + Sulbactam 4: Susce ptible Escherichia coli Aztreonam <=1: Susceptibl e Escherichia coli Cefepime <=1: Susceptibl e Escherichia coli Cefoxitin 16: Resistant Escherichia coli Ceftazidime <=1: Susceptibl e Escherichia coli Ceftriaxone <=1: Susceptibl e Escherichia coli Ertapenem <=0.5: Suscepti ble Escherichia coli Gentamicin <=1: Susceptibl e Escherichia coli Levofloxacin >=8: Resistant Escherichia coli Meropenem <=0.25: Suscept ible Escherichia coli Nitrofurantoin <=16: Susceptib le Escherichia coli Tetracycline >=16: Resistant Escherichia coli Tobramycin <=1: Susceptibl e Escherichia coli Trimethoprim + Sulfamethoxazole <=20: Susceptible Performing Organization Address City/[facility]/Zipcode Phone Number [facility] [address], [place] [id number] [place] Sputum Culture + Gram Stain (12/23/2019 10:18 AM CDT) Result 4+ Normal respiratory [facility] Gram Stain Result 3+ White blood cells seen [facility] Gram Stain Result 10-15 epithelial cells [facility] Gram Stain Result 3+ gram negative rods [facility] Specimen Sputum - Expectorated Performing Organization Address City/[facility]/Zipcode Phone Number [address] [address] [place] XR chest 1 view portable / bedside (12/23/2019 10:10 AM CDT) Specimen Narrative Performed At FINAL REPORT GE RIS Chest, portable AP view History: Encephalopathy, infection Comparison: No comparisons available for review IMPRESSION: The heart is within normal limits of siz e. No focal consolidation, sizable pleural effusion, or pneumothora x. No acute osseous abnormality. Signed: Grover Grover MD Report Verified Date/Time:12/23/2019 10:31:15 Reading Location: [facility] C013[facility] Con sult Reading Room Procedure Note Interface, External Ris In - 12/23/2019 10:33 AM CDT FINAL REPORT Chest, portable AP view History: Encephalopathy, infection Comparison: No comparisons available for review IMPRESSION: The heart is within normal limits of siz e. No focal consolidation, sizable pleural effusion, or pneumothora x. No acute osseous abnormality. Signed: Gorver Grover MD Report Verified Date/Time: 12/23/2019 1 0:31:15 Reading Location: [facility] C013 Ortho Con sult Reading Room Performing Organization Address City/State/Zipcode Phone Number GE RIS 2D Echo W/Doppler(CW/PW/Color) with saline (12/23/2019 9:38 AM CDT) Ejection Fraction [facility] ECHO HEAR TLAB [facility] Specimen Narrative Performed At Transthoracic Echocardiography Report (T TE) [facility] ECHO [facility]LAB [facility] Demographics Patient Name TALIA NIELSON Date of Study 12/23/2019 NENA [id number] Gender Female Visit Number [id number] Unknown [id number] Room Number 2C48 Number Date of Birth1950Referring Physician Lucius Patricia MD Age69 year(s)Project Geophysicist Tu Hutchinson AnalystIzosam ManningpreBlayne Carmona, Physician Procedure Type of Study TTE procedure:2DECHO W DOPPLER(CW/PW/COLOR) (Routine) Indications:Stroke work up. Clinical History HGB 26.2 HCT %DM HLD HTN HYPOTHYROIDSM Height: 55 inches Weight: 38.56 kg (85 lbs) BSA: 1.22 m^2 BMI: 19.76 kg/m^2 HR: 90 bpm BP: 102/43 mmHg Summary IV saline contrast injection was negative for a PFO (patent foramen ovale) at rest and post Valsalva . The left ventricle is chamber size (by vol index) is normal (female - LVED vol - 29-61ml/m2). Normal LV wall thickness. All of the LV segments contract normall y . Global LV systolic function normal . LVEF by Mott's method of disk assessment is normal (55-60%) . The LVEF was measured using Mott's bi-plane method of disk . Grade 1 diastolic dysfunction (impaired relaxation and low-normal LA pressure). A trace of tricuspid regurgitation. Estimated peak systolic PA pressure is 20-25 mmHg (normal range) . Peak systolic pressure may be underestimated; partial TR signal. Previous Study No prior exam available for comparison. Signature Findings Technical Quality: Technically adequate exam. Left Ventricle The left ventricle is chamber size (by vol index) is normal (female - LVED vol - 29-61ml/m2). No rmal LV wall thickness. Al l of the LV segments contract normally . Gl obal LV systolic function normal . LV EF by Mott's method of disk assessmen t is no rmal (55-60%) . Th e LVEF was measured using Mott's bi-p volodymyr me thod of disk . Gr maryjane 1 diastolic dysfunction (impaired re laxation an d low-normal LA pressure). Left AtriumLA size is normal (16-34 ml/m2) . Right VentricleThe right ventricular chamber size and systolic fu nction are within normal limits. Right Atrium RA cavity size is normal . Atrial SeptumIV saline contrast injection was negative for a PF O (p atent foramen ovale) at rest and post Va lsalva . Aortic Valve Mild AoV cusp thickening. Mitral Valve Mild MV leaflet thickening. Mi ld mitral annular calcification. Tr tricia mitral regurgitation. Tricuspid ValveA trace of tricuspid regurgitation. Es timated peak systolic PA pressure is 20- 25 mmHg (n ormal range) . Pe ak systolic pressure may be underestimat ed; pa rtial TR signal. Pulmonic Valve Normal PV structure and function. AortaAortic root size (SInus of Valsalva diameter) i s no rmal . Proximal ascending aorta size is normal . PericardiumNo significant pericardial effusion is visualized. IVC/SVC/PA/PV/PleuralThe estimated RA pressure by IVC dynamics 5-10mmHg . Chambers/Structures Left Atrium LA Volume: 33.31 ml LA Area: 13.64 cm^2 LA Vol. Index: 27 ml/m^2 Left Ventricle LVIDd: 3.82 cm LV Septum Diastolic: 1.01 cm LV PW Diastolic: 0.75 cm LVEDV Mott's:41.48 ml LVESV Mott's:17.38 ml LVEF Mott's: 58.1 %LVEDV I: 34 ml/m^2 LVESVI: 14 ml/m^2 LVOT Diameter: 1.82 cm Right Atrium RA Vol. (Sngl Plane): 2 7.39 ml Right Ventricle TAPSE: 1.69 cm Aorta Ao Root S of Ciera.: 2.26 cm Ascending Aorta: 3.3 cm Doppler/Quantitative Measurements Mitral Valve MV Peak E-Wave: 0.63 m/s MV Peak A-Wave: 1.14 m/s E/A Ratio: 0.5 5 Peak Gradient: 1.56 mmHg Deceleration Time: 235.9 msec MV Shlomo. Peak: Tissue Doppler E' Septal Velocity: 0.07 m/s E/E': 8.72 E' Lateral Velocity: 0.1 m/s Aortic Valve Peak Velocity: 1.4 m/s Mean Velocity: 0.94 m/s Peak Gradient: 7.83 mmHg Mean Gradient: 4.08 mmHg AV Area (continuity): 2.08 cm^2 AV VTI: 25.88 cm AV DVI: 0.8 LVOT Peak Velocity: 1.1 m/sPeak Gradient: 4.83 mmHg Mean Velocity: 0.77 m/s Mean Gradient: 2.71 mmHg LVOT Diameter: 1.82 cmLVOT VTI: 20.69 cm LVOT Area: 2.6 cm^2 LVOT SV:53.8 ml LVOT CO: 4.84 l/min LVOT CI: 3.97 l/min/m^2 Tricuspid Valve TR Velocity: 2.02 m/s TR Gradient: 16.3 mmHg Procedure Note Interface, External Ris In - 12/23/2019 4:33 PM CDT Transthoracic Echocardiography Report (TTE) Demographics Patient Name TALIA NIELSON Date o f Study 12/23/2019 NENA Gender Female Visit Number [id number] Race Unknown Room N [facility] 2C48 Number Date of 1950 Referr ing Physician Lucius Patricia MD Age 69 year(s) 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 Clinical History HGB 26.2 HCT %DM HLD HTN HYPOTHYROIDSM Height: 55 inches Weight: 38.56 kg (85 l bs) BSA: 1.22 m^2 BMI: 19.76 kg/m^2 HR: 90 bpm BP: 102/43 mmHg Summary IV saline contrast injection was negati ve for a PFO (patent foramen ovale) at rest and post Valsalva . The left ventricle is chamber size (by vol index) is normal (female - LVED vol - 29-61ml/m2). Normal LV wall thickness. All of the LV segments contract normall y . Global LV systolic function normal . LVEF by Mott's method of disk assess ment is normal (55-60%) . The LVEF was measured using Mott's b i-plane method of disk . Grade 1 diastolic dysfunction (impaired relaxation and low-normal LA pressure). A trace of tricuspid regurgitation. Estimated peak systolic PA pressure is 20-25 mmHg (normal range) . Peak systolic pressure may be underesti mated; partial TR signal. Previous Study No prior exam available for comparison. Signature Findings Technical Quality: Technically adequate exam. Left Ventricle The left ventric le is chamber size (by vol index) is normal (femal e - LVED vol - 29-61ml/m2). Normal LV wall t hickness. All of the LV se gments contract normally . Global LV systol ic function normal . LVEF by Mott' s method of disk assessment is normal (55-60%) . The LVEF was darien sured using Mott's bi-plane method of disk . Grade 1 diastoli c dysfunction (impaired relaxation and low-normal L A pressure). Left Atrium LA size is henry l (16-34 ml/m2) . Right Ventricle The right ventri cular chamber size and systolic function are wit hin normal limits. Right Atrium RA cavity size i s normal . Atrial Septum IV saline contra st injection was negative for a PFO (patent foramen ovale) at rest and post Valsalva . Aortic Valve Mild AoV cusp th ickening. Mitral Valve Mild MV leaflet thickening. Mild mitral curt lar calcification. Trace mitral reg urgitation. Tricuspid Valve A trace of tricu spid regurgitation. Estimated peak s ystolic PA pressure is 20-25 mmHg (normal range) . Peak systolic pr essure may be underestimated; partial TR signa l. Pulmonic Valve Normal PV struct ure and function. Aorta Aortic root size (SInus of Valsalva diameter) is normal . Proxima l ascending aorta size is normal . Pericardium No significant p ericardial effusion is visualized. IVC/SVC/PA/PV/Pleural The estimated RA pressure by IVC dynamics 5-10mmHg . Chambers/Structures Left Atrium LA Volume: 33.31 ml LA Area: 13.64 cm^2 LA Vol. Index: 27 ml/m^2 Left Ventricle LVIDd: 3.82 cm LV Septum Diastolic: 1.01 cm LV PW Diastolic: 0.75 cm LVEDV Mott's:41.48 ml LVESV Mott's:17.38 ml LVEF Mott's: 58.1 % LVEDVI: 34 ml/m^2 LVESVI: 14 ml/m^2 LVOT Diameter: 1.82 cm Right Atrium RA Vol. (Sngl Plane): 27.39 ml Right Ventricle TAPSE: 1.69 cm Aorta Ao Root S of Ciera.: 2.26 cm Ascending Aorta: 3.3 cm Doppler/Quantitative Measurements Mitral Valve MV Peak E-Wave: 0.63 m/s MV Peak A-Wave: 1.14 m/s E/ A Ratio: 0.55 Pe ak Gradient: 1.56 mmHg De celeration Time: 235.9 msec MV Shlomo. Peak: Tissue Doppler E' Septal Velocity: 0.07 m/s E/ E': 8.72 E' Lateral Velocity: 0.1 m/s Aortic Valve Peak Velocity: 1.4 m/s Mean Velocity: 0.94 m/s Peak Gradient: 7.83 mmHg Mean Gradient: 4.08 mmHg AV Area (continuity): 2.08 cm^2 AV VTI: 25.88 cm AV DVI: 0.8 LVOT Peak Velocity: 1.1 m/s Pea k Gradient: 4.83 mmHg Mean Velocity: 0.77 m/s Darien n Gradient: 2.71 mmHg LVOT Diameter: 1.82 cm LVO T VTI: 20.69 cm LVOT Area: 2.6 cm^2 LVO T SV:53.8 ml LVOT CO: 4.84 l/min LVO T CI: 3.97 l/min/m^2 Tricuspid Valve TR Velocity: 2.02 m/s TR Gradient: 16.3 mmHg Performing Organization Address City/[facility] Phone Number [facility] ECHO HEARTLAB MKCKESSON CPACS Lactic Acid, Arterial (12/23/2019 9:25 AM CDT) Lactate, Art 0.6 0.5 - 2.2 mmol/L [facility] Specimen Blood, Arterial Narrative Performed At Professor Of Special Education ID - LM [facility]ENTER Performing Organization Address [facility] Phone Number [facility] [address] [place] [address] CENTER CTA carotid (12/23/2019 6:00 AM CDT) Specimen Narrative Performed At FINAL REPORT [employer] CLINICAL HISTORY: Stroke, follow up TECHNIQUE: Initially, noncontrast head C T images were performed. Contiguous contrast-enhanced axial image s through the neck followed by axial images through the head with co earnest and sagittal reformations to assess the arterial circ ulation. 3-D reconstructions were performed using a volume rendered t echnique separately on a workstation. This exam was performed acc ording to the departmental dose optimization program which includes automated exposure control, adjustment of the mA and/or kV according to the patient size, and/or use of an iterative reconstruction techn ique. COMPARISON: None FINDINGS: There is no CT evidence of acute infarct or hemorrhage. There is periventricular and subcortical white ma tter hypodensity which is nonspecific but compatible with chronic microvascular ischemic change. There are atherosclerotic calcif ications of the intracranial circulation. There is generalized parenc hymal volume loss without hydrocephalus, midline shift, or apparen t mass effect. The skull is intact. The CT angiogram images of the head reve al no evidence of intracranial aneurysm, critical stenosis , or proximal branch vessel occlusion. There are bilateral mariia gin posterior cerebral arteries. The major intradural venous sinuses are patent. There is no hemodynamically significant stenosis in either cervical internal carotid artery by NASCET criter ia. The vertebral arteries in the neck are p atent including their origins. There are dorsal spondylitic changes in the cervical spine. There are scattered subcentimeter lymph nodes in t he neck. The visualized lung apices are clear. IMPRESSION: No CT evidence of acute infarct or hemor rhage. No evidence for a [place] large vessel occlusion. No evidence of hemodynamically significa nt stenosis in the cervical carotid or vertebral arteries by NASCET criteria. Signed: Karla Vallejo MD Report Verified Date/Time:12/23/2019 07:51:59 Reading Location: [facility] [address] [place] [address] Procedure Note Interface, External Ris In - 12/23/2019 7:54 AM CDT FINAL REPORT CLINICAL HISTORY: Stroke, follow up TECHNIQUE: Initially, noncontrast head C T images were performed. Contiguous contrast-enhanced axial image s through the neck followed by axial images through the head with co earnest and sagittal reformations to assess the arterial circ ulation. 3-D reconstructions were performed using a volume rendered t echnique separately on a workstation. This exam was performed acc ording to the departmental dose optimization program which includes automated exposure control, adjustment of the mA and/or kV according to the patient size, and/or use of an iterative reconstruction techn ique. COMPARISON: None FINDINGS: There is no CT evidence of acute infarct or hemorrhage. There is periventricular and subcortical white ma tter hypodensity which is nonspecific but compatible with chronic microvascular ischemic change. There are atherosclerotic calcif ications of the intracranial circulation. There is generalized parenc hymal volume loss without hydrocephalus, midline shift, or apparen t mass effect. The skull is intact. The CT angiogram images of the head reve al no evidence of intracranial aneurysm, critical stenosis , or proximal branch vessel occlusion. There are bilateral mariia gin posterior cerebral arteries. The major intradural venous sinuses are patent. There is no hemodynamically significant stenosis in either cervical internal carotid artery by NASCET criter ia. The vertebral arteries in the neck are p atent including their origins. There are dorsal spondylitic changes in the cervical spine. There are scattered subcentimeter lymph nodes in t he neck. The visualized lung apices are clear. IMPRESSION: No CT evidence of acute infarct or hemor rhage. No evidence for a [place] large vessel occlusion. No evidence of hemodynamically significa nt stenosis in the cervical carotid or vertebral arteries by NASCET criteria. Signed: Karla Vallejo MD Report Verified Date/Time: 12/23/2019 0 7:51:59 Reading Location: [facility] C013[facility] Performing Organization Address City/State/Zipcode Phone Number [employer] CTA brain (12/23/2019 6:00 AM CDT) Specimen Narrative Performed At FINAL REPORT [employer] CLINICAL HISTORY: Stroke, follow up TECHNIQUE: Initially, noncontrast head C T images were performed. Contiguous contrast-enhanced axial image s through the neck followed by axial images through the head with co earnest and sagittal reformations to assess the arterial circ ulation. 3-D reconstructions were performed using a volume rendered t echnique separately on a workstation. This exam was performed acc ording to the departmental dose optimization program which includes automated exposure control, adjustment of the mA and/or kV according to the patient size, and/or use of an iterative reconstruction techn ique. COMPARISON: None FINDINGS: There is no CT evidence of acute infarct or hemorrhage. There is periventricular and subcortical white ma tter hypodensity which is nonspecific but compatible with chronic microvascular ischemic change. There are atherosclerotic calcif ications of the intracranial circulation. There is generalized parenc hymal volume loss without hydrocephalus, midline shift, or apparen t mass effect. The skull is intact. The CT angiogram images of the head reve al no evidence of intracranial aneurysm, critical stenosis , or proximal branch vessel occlusion. There are bilateral mariia gin posterior cerebral arteries. The major intradural venous sinuses are patent. There is no hemodynamically significant stenosis in either cervical internal carotid artery by NASCET criter ia. The vertebral arteries in the neck are p atent including their origins. There are dorsal spondylitic changes in the cervical spine. There are scattered subcentimeter lymph nodes in t he neck. The visualized lung apices are clear. IMPRESSION: No CT evidence of acute infarct or hemor rhage. No evidence for a [place] large vessel occlusion. No evidence of hemodynamically significa nt stenosis in the cervical carotid or vertebral arteries by NASCET criteria. Signed: Karla Vallejo MD Report Verified Date/Time:12/23/2019 07:51:59 Reading Location: [facility] C013[facility] Procedure Note Interface, External Ris In - 12/23/2019 7:54 AM CDT FINAL REPORT CLINICAL HISTORY: Stroke, follow up TECHNIQUE: Initially, noncontrast head C T images were performed. Contiguous contrast-enhanced axial image s through the neck followed by axial images through the head with co earnest and sagittal reformations to assess the arterial circ ulation. 3-D reconstructions were performed using a volume rendered t echnique separately on a workstation. This exam was performed acc ording to the departmental dose optimization program which includes automated exposure control, adjustment of the mA and/or kV according to the patient size, and/or use of an iterative reconstruction techn ique. COMPARISON: None FINDINGS: There is no CT evidence of acute infarct or hemorrhage. There is periventricular and subcortical white ma tter hypodensity which is nonspecific but compatible with chronic microvascular ischemic change. There are atherosclerotic calcif ications of the intracranial circulation. There is generalized parenc hymal volume loss without hydrocephalus, midline shift, or apparen t mass effect. The skull is intact. The CT angiogram images of the head reve al no evidence of intracranial aneurysm, critical stenosis , or proximal branch vessel occlusion. There are bilateral mariia gin posterior cerebral arteries. The major intradural venous sinuses are patent. There is no hemodynamically significant stenosis in either cervical internal carotid artery by NASCET criter ia. The vertebral arteries in the neck are p atent including their origins. There are dorsal spondylitic changes in the cervical spine. There are scattered subcentimeter lymph nodes in t neck. The visualized lung apices are clear. IMPRESSION: No CT evidence of acute infarct or hemor rhage. No evidence for a [place] large vessel occlusion. No evidence of hemodynamically significa nt stenosis in the cervical carotid or vertebral arteries by NASCET criteria. Signed: Karla Vallejo MD Report Verified Date/Time: 12/23/2019 0 7:51:59 Reading Location: [address] Room Performing Organization Address City/[facility] Cent[facility]ode Phone Number GE RIS Lactate dehydrogenase (LDH) (12/23/2019 3:52 AM CDT) LDH 445 (H)Comment: Specimen 125 - 220 U/L [facility] Medical CenterE R Specimen Blood Narrative Performed At Professor Of Special Education ID - LM [facility] Performing Organization Address [facility] Centercoks Phone Number [address] [address] CENTER Fasting lipid panel (12/23/2019 3:52 AM CDT) Triglycerides 55Comment: Specimen slightly mg/dL [facility] Ch[facility] 98Comment: Specimen slightly mg/dL [facility] HDL 51 mg/dL [facility] LDL Calculated 36 mg/dL [facility] Specimen Blood Narrative Performed At Triglyceride Reference Range: [facility] Low Risk <150 [id number] High Risk 200-499 Very High Risk>=500 Cholesterol Reference Range: Low Risk <200 [id number] High Risk>240 HDL Cholesterol Reference Range: Low Risk >=60 High Risk <40 LDL Cholesterol Reference Range: Optimal<100 Near [id number] Very High >=190 Professor Of Special Education ID - LM Performing Organization Address [facility] Centercode Phone Number [address] [address] [place] Procalcitonin (12/23/2019 12:23 AM CDT) Procalcitonin 21.29 (HH) <0.05 ng/mL [facility] Specimen Blood Narrative Performed At SEPSIS RISK (ng/mL) [facility] Low:0.05-0.50 Intermediate: 0.51-2.00 High: >=2.01 Performing Organization Address City/[facility] Centercode Phone Number [address] [address] [place] Vitamin B12 and Folate (12/23/2019 12:23 AM CDT)Only the most recent of2 results within the time period is included. Vitamin B12 331 213 - 816 pg/mL [facility] Folate 33.20 >=7.00 ng/mL [facility] Specimen Blood Narrative Performed At Professor Of Special Education ID Magdi Jaime [facility] [place] Performing Organization Address City/[facility] Centercoks Phone Number [address] [address] [place] TSH/Free T4 If Indicated (12/23/2019 12:23 AM CDT) TSH 0.719 0.350 - 4.940 uIU/mL [facility] Specimen Blood Narrative Performed At Professor Of Special Education ID Magdi Garza [facility] Performing Organization Address City/[facility] Centercode Phone Number [address] [address] CENTER RPR (12/23/2019 12:23 AM CDT) RPR Nonreactive Nonreactive [facility] Specimen Blood Performing Organization Address City/[facility]/Zipcode Phone Number [address] [address] CENTER Blood Culture - Routine (Right Venipuncture) (12/23/2019 12:23 AM CDT)Only the most recent of2 resultswithin the time period is included. Result No growth in 5 days [facility] Specimen Blood Performing Organization Address City/[facility]/Zipcode Phone Number [address] [address] CENTER Homocysteine (12/23/2019 12:23 AM CDT) Homocysteine 11.5 5.1 - 15.4 umol/L [facility] Specimen Blood Narrative Performed At Professor Of Special Education ID - PIAYA L [facility] Performing Organization Address City/[facility]/Zipcode Phone Number [address] [address] CENTER Hemoglobin A1c (12/23/2019 12:23 AM CDT) Hemoglobin A1C 5.6 4.3 - 6.1 % [facility] Specimen Blood Performing Organization Address City/[facility]/Zipcode Phone Number [address] [address] [place] Hepatic function panel (12/23/2019 12:23 AM CDT) Protein, Total 5.0 (L)Comment: Specimen 6.0 - 8.3 gm/dL [facility] slightly hemolyzed [facility] Albumin 2.3 (L)Comment: Specimen 3.5 - 5.0 g/dL [facility] slightly hemolyzed [facility] R Total Bilirubin 0.3Comment: Specimen 0.2 - 1.2 mg/dL [facility] slightly hemolyzed [facility] R Bilirubin, Direct 0.1Comment: Specimen 0.1 - 0.5 mg/dL [facility] slightly hemolyzed [facility] R Alkaline Phosphatase 78 40 - 150 U/L [facility] AST 18Comment: Specimen 5 - 34 U/L [facility] slightly hemolyzed [facility] R ALT 9Comment: Specimen 6 - 55 U/L [facility] slightly hemolyzed [facility] R Specimen Blood Narrative Performed At Professor Of Special Education ID - PIAYA L [facility] Performing Organization Address City/State/Zipcode Phone Number [facility] [address] [place] [address] CENTER after 01/17/2019 Insurance Payer Benefit Plan / Group Subscriber ID Type Phone A ddress MEDICARE MEDICARE A B xxxxxxxxxxx Medicare MEDICAID MEDICAID [facility] xxxxxxxxx Medicaid Advance Directives For more information, please contact:[facility] [place], [place] [phone] Code Status Date Activated Date Inactivated Comments Full Code 12/23/2019 12:00 AM 12/26/2019 5:44 PM This code status was determined by: Patient Full Code 12/23/2019 12:00 AM 12/23/2019 12:00 AM This code status was determined by: Patient
--- OUTSIDE RECORDS SUMMARY | 2020-01-18 19:17 | XMS REPORT | Continuity of Care Document ---
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, systemic N euro arterial (disorder) Hyperlipidemia Active Problem 10/12/2019 Misc her (disorder) Neuro Hypothyroidism Active Problem 10/12/2019 Misc her (disorder) Neuro Schizophrenia Active Problem 10/12/2019 Misch er (disorder) Neuro Tremor (finding) Active Problem 10/12/2019 Mi artur Neuro Medications Medication Details Route Status Patient Ordering Order Source Instructions Provider Date Acetaminophen 650 mg = 2 Active Mischer 325 MG Oral tab, PO, 020 Neuro Tablet TID, 0 Refill(s) Aspirin 81 MG 81 mg = 1 Active Mischer Enteric Coated tab, PO, 020 Neuro Tablet Daily, # 90 tab, 3 Refill(s) atorvastatin 10 10 mg = 1 Active Mische r mg oral tablet tab, PO, 020 Neuro Daily, 0 Refill(s) benztropine 1 mg See Active Mischer oral tablet Instructio 020 Neuro ns, 1 tab PO QAM, 2 tabs PO QHS, 0 Refill(s) busPIRone 5 mg 5 mg = 1 Active Mischer oral tablet tab, PO, 020 Neuro TID, # 90 tab, 0 Refill(s) cetirizine 10 mg 10 mg = 1 Active Misch er oral tablet tab, PO, 020 Neuro Daily, 0 Refill(s) 168 HR Clonidine 1 patch, Active Mische r 0.49366 MG/HR TOP, 020 Neuro Transdermal qWeek, # 4 Patch patch, 0 Refill(s) Divalproex 125 mg = 1 Active Mischer Sodium 125 MG cap, PO, 020 Neuro Enteric Coated TID, 0 Capsule Refill[facility]) [facility] Famotidine 20 MG 20 mg = 1 Active Misch er Oral Tablet tab, PO, 020 Neuro BID, # 60 tab, 0 Refill(s) Lurasidone 160 mg = 2 Active Mischer Hydrochloride 80 tab, PO, 020 Neuro MG Oral Tablet Bedtime, 0 [Latuda] Refill(s) Sertraline 100 100 mg = 1 Active Mische r MG Oral Tablet tab, PO, 020 Neuro [Zoloft] Daily, 0 Refill(s) Allergies, Adverse Reactions, Alerts Substance Category Reaction Severity Reaction Status Date Comments S ource type Reported No Known Assertion Drug Misch er Medication allergy Neuro Allergies Immunizations No Data Provided for This Section Results No Data Provided for This Section Pathology Reports No Data Provided for This Section Diagnostic Reports No Data Provided for This Section Consultation Notes No Data Provided for This Section Discharge Summaries No Data Provided for This Section History and Physicals No Data Provided for This Section Vital Signs Vital Sign Value Date Comments Source Systolic (mm Hg) 92 09/08/2019 [facility] [place] Diastolic (mm Hg) 50 09/08/2019 [facility] [place] Heart Rate 91 09/08/2019 [facility] [place] Neuro Respitory Rate 16 09/08/2019 [facility] [place] Neuro Encounters Location Location Encounter Encounter Reason Attending ADM [place] Stat Source Details Type Number For Provider Date Date Visit Outpatient [id number] Ricki 09/08 [place] [address] [facility] Outpatient [id number] Ricki 09/08 09/09 [facility] [place] [facility] [place] Outpatient [id number] Ricki 10/10 [place] [address] [facility] Ambulatory [id number] Ricki 10/10 10/10 [facility] [place] [facility] [facility] [place] Procedures No Data Provided for This Section Assessment and Plan No Data Provided for This Section Plan of Care No Data Provided for This Section Social History Social History Date Source Social History TypeResponse 09/08/2019 [facility] [place] Ne[place] o Smoking Status Never smoker; Exposure to Tobacco Smoke Unable to obtain; Cigarette Smoking Last 365 Days No; Reg Smoking Cessation Counseling No; Other Tobacco Frequency uses dip daily; entered on: 09/08/19 Family History No Data Provided for This Section Advance Directives No Data Provided for This Section Functional Status No Data Provided for This Section
--- OUTSIDE RECORDS SUMMARY | 2020-01-18 19:18 | XMS REPORT ---
:1950 Author Organization [facility] t Address [address] [place] [address] Care Team Providers Name Role Phone HATTIE Attending Clinician Unavailable Amandeep Castillo Attending Clinician ROSCOE KHAN Admitting Clinician Unavailable Problems This patient has no known problems. Allergies, Adverse Reactions, Alerts This patient has no known allergies or adverse reactions. Medications This patient has no known medications. Procedures This patient has no known procedures. Encounters Start End Encounter Admission Attending Care Care Encounter Source Date/Time Date/Time Type Type Clinicians Facility Department ID 2019-10-10 2019-10-10 Outpatient CORNELIO Castillo [facility] [id number] 13:00:00 13:00:00 Ricki 01 [facility] 2019-09-08 2019-09-08 [id number] 14:15:00 23:59:59 Ricki 00 [facility] Results Test Description Test Time Test Comments Results Result Comments Source BLOOD CULTURE 2019-12-28 02:01:00 Test Item Value Reference Range Interpretation Comme nts CULTURE (BEAKER) (test code = 1095) No growth in 5 days BLOOD [id number] 02:01:00 Test Item Value Reference Range Interpretation Comments CULTURE (BEAKER) (test No growth in 5 days code = 1095) [id number] 05:34:00 Test Item Value Reference Range Interpretation Comments FERRITIN (BEAKER) (test code = 47.91 ng/mL 5.00-275.00 361) Air Traffic Control Supervisor ID - OLIVE CERVANTES, TIBC, % SAT. (WITHOUT FERRITIN)2019-12-26 05:16:00 Test Item Value Reference Range Interpretation Comments IRON (BEAKER) (test code = 547) 40.0 ug/dL 40.0-160.0 TOTAL IRON BINDING CAPACITY 161 ug/dL 250-450 L (BEAKER) (test code = 769) IRON % SATURATION (2) (BEAKER) 25 % 20-55 (test code = 2590) Air Traffic Control Supervisor AUSTIN SCHAEFER WCBC W/PLT COUNT & AUTO [id number] 04:39:00 Test Item Value Reference Range Interpretation Comments WHITE BLOOD CELL COUNT (BEAKER) 8.5 K/ L 3.5-10.5 (test code = 775) RED BLOOD CELL COUNT (BEAKER) 2.86 M/ L 3.93-5.22 L (test code = 761) HEMOGLOBIN (BEAKER) (test code = 8.3 GM/DL 11.2-15.7 L 410) HEMATOCRIT (BEAKER) (test code = 26.0 % 34.1-44.9 L 411) MEAN CORPUSCULAR VOLUME (BEAKER) 90.9 fL 79.4-94.8 (test code = 753) MEAN CORPUSCULAR HEMOGLOBIN 29.0 pg 25.6-32.2 (BEAKER) (test code = 751) MEAN CORPUSCULAR HEMOGLOBIN CONC 31.9 GM/DL 32.2-35.5 L (BEAKER) (test code = 752) RED CELL DISTRIBUTION WIDTH 17.2 % 11.7-14.4 H (BEAKER) (test code = 412) PLATELET COUNT (BEAKER) (test 544 K/CU MM 150-450 H code = 756) MEAN PLATELET VOLUME (BEAKER) 9.0 fL 9.4-12.3 L (test code = 754) NUCLEATED RED BLOOD CELLS 0 /100 WBC 0-0 (BEAKER) (test code = 413) NEUTROPHILS RELATIVE PERCENT 64 % (BEAKER) (test code = 429) LYMPHOCYTES RELATIVE PERCENT 25 % (BEAKER) (test code = 430) MONOCYTES RELATIVE PERCENT 9 % (BEAKER) (test code = 431) EOSINOPHILS RELATIVE PERCENT 1 % (BEAKER) (test code = 432) BASOPHILS RELATIVE PERCENT 0 % (BEAKER) (test code = 437) NEUTROPHILS ABSOLUTE COUNT 5.41 K/ L 1.56-6.13 (BEAKER) (test code = 670) LYMPHOCYTES ABSOLUTE COUNT 2.13 K/ L 1.18-3.74 (BEAKER) (test code = 414) MONOCYTES ABSOLUTE COUNT (BEAKER) 0.75 K/ L 0.24-0.36 H (test code = 415) EOSINOPHILS ABSOLUTE COUNT 0.11 K/ L 0.04-0.36 (BEAKER) (test code = 416) BASOPHILS ABSOLUTE COUNT (BEAKER) 0.01 K/ L 0.01-0.08 (test code = 417) IMMATURE GRANULOCYTES-RELATIVE 1 % 0-1 PERCENT (BEAKER) (test code = 2801) FL, ESOPH, SWALLOW FUNCTION, WITH CINE OR [id number] 15:15:00Reason for exam:->assess pharyngeal swallow functionFINAL REPORT Modified barium swallow exam with speech pathology service CLINICAL HISTORY: assess pharyngeal swallow function IMPRESSION: Please see the speech pathology service report for details. Barium contrast of multiple consistencies is given to the patient to swallow. Fluoroscopic observation is performed during swallowing. No aspiration is identified. Fluoro time: Two minutes Number of images: 2 Signed: Radha Joiner Verified Date/Time: 12/25/2019 15:15:45 Reading Location: [address] Ortho Consult Reading Room POCT-GLUCOSE [id number] 12:30:00 Test Item Value Reference Range Interpretation Comments POC-GLUCOSE METER 97 mg/dL 70-110 : TESTED A T [facility] 6720 (BEAKER) (test code [facility], = 1538) [id number]: Air Traffic Control Supervisor/Techni vanessa ID = [id number] for TSEG GAI, TSIGHEREDA SPUTUM CULTURE + GRAM [id number] 11:45:00 Test Item Value Reference Range Interpretation Comments CULTURE (BEAKER) 4+ Normal respiratory (test code = 1095) iveth present GRAM STAIN RESULT 3+ White blood cells (BEAKER) (test code = seen 1123) GRAM STAIN RESULT 10-15 epithelial cells (BEAKER) (test code = 82761) GRAM STAIN RESULT 3+ gram negative rods (BEAKER) (test code = 01231) POCT-GLUCOSE [id number] 08:08:00 Test Item Value Reference Range Interpretation Comments POC-GLUCOSE METER 77 mg/dL 70-110 : TESTED A T [facility] 6720 (BEAKER) (test code = CAS[place] Mariee [facility], 1538) [address]: Air Traffic Control Supervisor/Techni vanessa ID = [id number] for CHIRAG SAENZ TROPONIN [id number] 07:32:00 Test Item Value Reference Range Interpretation Comments TROPONIN I (BEAKER) (test code = 0.03 ng/mL 0.00-0.03 397) Troponin I (TnI) levels must be interpreted in the context of the presenting symptoms and the clinical findings. Elevated TnI levels indicate myocardial damage, but are not specific for ischemic heart disease. Elevated TnI levels are seen in patients with other cardiac conditions (including myocarditis and congestive heart failure), and slight TnI elevations occur in patients with other conditions, including sepsis, renal failure, acidosis, acute neurological disease, and persistent tachyarrhythmia.Air Traffic Control Supervisor ID - ZORAN LBASIC METABOLIC [id number] 04:56:00 Test Item Value Reference Range Interpretation Comments SODIUM (BEAKER) 140 meq/L 136-145 (test code = 381) POTASSIUM (BEAKER) 4.1 meq/L 3.5-5.1 (test code = 379) CHLORIDE (BEAKER) 109 meq/L 98-107 H (test code = 382) CO2 (BEAKER) (test 26 meq/L 22-29 code = 355) BLOOD UREA NITROGEN 9 mg/dL 7-21 (BEAKER) (test code = 354) CREATININE (BEAKER) 0.55 mg/dL 0.57-1.25 L (test code = 358) GLUCOSE RANDOM 98 mg/dL 70-105 (BEAKER) (test code = 652) CALCIUM (BEAKER) 7.8 mg/dL 8.4-10.2 L (test code = 697) EGFR (BEAKER) (test 109 mL/min/1.73 ESTIM ATED GFR IS code = 1092) sq m NOT ACCURATE CREATININE CLEARANCE IN PREDICTING GLOMERULAR FILTRATION RATE . ESTIMATED GFR I S NOT APPLICABLE FOR DIALYSIS PATIEN TS. Air Traffic Control Supervisor ID - PANKAJAYA LCBC W/PLT COUNT & AUTO [id number] 04:52:00 Test Item Value Reference Range Interpretation Comments WHITE BLOOD CELL COUNT (BEAKER) 7.6 K/ L 3.5-10.5 (test code = 775) RED BLOOD CELL COUNT (BEAKER) 2.66 M/ L 3.93-5.22 L (test code = 761) HEMOGLOBIN (BEAKER) (test code = 7.7 GM/DL 11.2-15.7 L 410) HEMATOCRIT (BEAKER) (test code = 24.3 % 34.1-44.9 L 411) MEAN CORPUSCULAR VOLUME (BEAKER) 91.4 fL 79.4-94.8 (test code = 753) MEAN CORPUSCULAR HEMOGLOBIN 28.9 pg 25.6-32.2 (BEAKER) (test code = 751) MEAN CORPUSCULAR HEMOGLOBIN CONC 31.7 GM/DL 32.2-35.5 L (BEAKER) (test code = 752) RED CELL DISTRIBUTION WIDTH 17.2 % 11.7-14.4 H (BEAKER) (test code = 412) PLATELET COUNT (BEAKER) (test 496 K/CU MM 150-450 H code = 756) MEAN PLATELET VOLUME (BEAKER) 9.0 fL 9.4-12.3 L (test code = 754) NUCLEATED RED BLOOD CELLS 0 /100 WBC 0-0 (BEAKER) (test code = 413) NEUTROPHILS RELATIVE PERCENT 59 % (BEAKER) (test code = 429) LYMPHOCYTES RELATIVE PERCENT 28 % (BEAKER) (test code = 430) MONOCYTES RELATIVE PERCENT 11 % (BEAKER) (test code = 431) EOSINOPHILS RELATIVE PERCENT 2 % (BEAKER) (test code = 432) BASOPHILS RELATIVE PERCENT 0 % (BEAKER) (test code = 437) NEUTROPHILS ABSOLUTE COUNT 4.48 K/ L 1.56-6.13 (BEAKER) (test code = 670) LYMPHOCYTES ABSOLUTE COUNT 2.13 K/ L 1.18-3.74 (BEAKER) (test code = 414) MONOCYTES ABSOLUTE COUNT (BEAKER) 0.81 K/ L 0.24-0.36 H (test code = 415) EOSINOPHILS ABSOLUTE COUNT 0.13 K/ L 0.04-0.36 (BEAKER) (test code = 416) BASOPHILS ABSOLUTE COUNT (BEAKER) 0.01 K/ L 0.01-0.08 (test code = 417) IMMATURE GRANULOCYTES-RELATIVE 0 % 0-1 PERCENT (BEAKER) (test code = 2801) [facility] [id number] 23:41:00 Test Item Value Reference Range Interpretation Comments TROPONIN I (BEAKER) (test code = 397) < ng/mL 0.00-0.03 Troponin I (TnI) levels must be interpreted in the context of the presenting symptoms and the clinical findings. Elevated TnI levels indicate myocardial damage, but are not specific for ischemic heart disease. Elevated TnI levels are seen in patients with other cardiac conditions (including myocarditis and congestive heart failure), and slight TnI elevations occur in patients with other conditions, including sepsis, renal failure, acidosis, acute neurological disease, and persistent tachyarrhythmia.Air Traffic Control Supervisor ID - ZORAN LPOCT-GLUCOSE METER 2019-12-24 20:44:00 Test Item Value Reference Range Interpretation Comments POC-GLUCOSE METER 98 mg/dL 70-110 : TESTED A T [facility] 6720 (BEAKER) (test code = [place], 1538) [address]: Air Traffic Control Supervisor/Techni vanessa ID = [id number] for CAMI NORRIS BASIC METABOLIC [id number] 09:47:00 Test Item Value Reference Range Interpretation Comments SODIUM (BEAKER) 137 meq/L 136-145 (test code = 381) POTASSIUM (BEAKER) 4.9 meq/L 3.5-5.1 (test code = 379) CHLORIDE (BEAKER) 110 meq/L 98-107 H (test code = 382) CO2 (BEAKER) (test 24 meq/L 22-29 code = 355) BLOOD UREA NITROGEN 9 mg/dL 7-21 (BEAKER) (test code = 354) CREATININE (BEAKER) 0.57 mg/dL 0.57-1.25 (test code = 358) GLUCOSE RANDOM 116 mg/dL 70-105 H (BEAKER) (test code = 652) CALCIUM (BEAKER) 7.6 mg/dL 8.4-10.2 L (test code = 697) EGFR (BEAKER) (test 105 mL/min/1.73 ESTIM ATED GFR IS code = 1092) sq m NOT ACCURATE CREATININE CLEARANCE IN PREDICTING GLOMERULAR FILTRATION RATE . ESTIMATED GFR I S NOT APPLICABLE FOR DIALYSIS PATIEN TS. Air Traffic Control Supervisor ID - GARRETT WCBC W/PLT COUNT & AUTO [id number] 09:24:00 Test Item Value Reference Range Interpretation Comments WHITE BLOOD CELL COUNT (BEAKER) 8.0 K/ L 3.5-10.5 (test code = 775) RED BLOOD CELL COUNT (BEAKER) 2.88 M/ L 3.93-5.22 L (test code = 761) HEMOGLOBIN (BEAKER) (test code = 8.2 GM/DL 11.2-15.7 L 410) HEMATOCRIT (BEAKER) (test code = 26.8 % 34.1-44.9 L 411) MEAN CORPUSCULAR VOLUME (BEAKER) 93.1 fL 79.4-94.8 (test code = 753) MEAN CORPUSCULAR HEMOGLOBIN 28.5 pg 25.6-32.2 (BEAKER) (test code = 751) MEAN CORPUSCULAR HEMOGLOBIN CONC 30.6 GM/DL 32.2-35.5 L (BEAKER) (test code = 752) RED CELL DISTRIBUTION WIDTH 17.1 % 11.7-14.4 H (BEAKER) (test code = 412) PLATELET COUNT (BEAKER) (test 509 K/CU MM 150-450 H code = 756) MEAN PLATELET VOLUME (BEAKER) 8.7 fL 9.4-12.3 L (test code = 754) NUCLEATED RED BLOOD CELLS 0 /100 WBC 0-0 (BEAKER) (test code = 413) NEUTROPHILS RELATIVE PERCENT 66 % (BEAKER) (test code = 429) LYMPHOCYTES RELATIVE PERCENT 24 % (BEAKER) (test code = 430) MONOCYTES RELATIVE PERCENT 7 % (BEAKER) (test code = 431) EOSINOPHILS RELATIVE PERCENT 2 % (BEAKER) (test code = 432) BASOPHILS RELATIVE PERCENT 0 % (BEAKER) (test code = 437) NEUTROPHILS ABSOLUTE COUNT 5.22 K/ L 1.56-6.13 (BEAKER) (test code = 670) LYMPHOCYTES ABSOLUTE COUNT 1.91 K/ L 1.18-3.74 (BEAKER) (test code = 414) MONOCYTES ABSOLUTE COUNT (BEAKER) 0.58 K/ L 0.24-0.36 H (test code = 415) EOSINOPHILS ABSOLUTE COUNT 0.18 K/ L 0.04-0.36 (BEAKER) (test code = 416) BASOPHILS ABSOLUTE COUNT (BEAKER) 0.01 K/ L 0.01-0.08 (test code = 417) IMMATURE GRANULOCYTES-RELATIVE 1 % 0-1 PERCENT (BEAKER) (test code = 2801) POCT-GLUCOSE [id number] 07:50:00 Test Item Value Reference Range Interpretation Comments POC-GLUCOSE METER 78 mg/dL 70-110 : TESTED A T [facility] 6720 (BEAKER) (test code = CASPER Mariee [facility], 1538) [address]: Air Traffic Control Supervisor/Techni vanessa ID = [id number] for GALI SEO CT, BRAIN, WITHOUT [id number] 23:55:00FINAL REPORT CT, BRAIN, WITHOUT CONTRAST CLINICAL INDICATION: Stroke, followup COMPARISON: December 23, 2019 TECHNIQUE: Noncontrast axial CT imaging of the brain and skull. Coronal and sagittal reformats obtained. DOSE REDUCTION: Dose modulation, iterative reconstruction, and/orweight-based adjustment of the mA/kV was utilized to reduce the radiation dose to as low as reasonably achievable. FINDINGS:Cerebral parenchyma: Global parenchymal volume loss and minimal white matter hypoattenuation. No mass, acute intracranial hemorrhage or acute cortical infarct.Cerebellum and brainstem: No acute findings.Ventricles: No acute hydrocephalus.Extra-axial spaces: Unremarkable. Calvarium and skull base: Intact.Paranasal sinuses and mastoid air cells: Imaged chambers are without acute abnormality.Orbital contents: Included portions unremarkable. Additional findings: None. IMPRESSION:No acute intracranial abnormality. Involutional and chronic microangiopathic ischemic changes are stable. If there is persistent clinical concern for intracranial pathology, MR examination is recommended for further characterization. Signed: Syd Cervantes MDReport Verified Date/Time: 12/23/2019 23:55:53 POCT-GLUCOSE [id number] 17:27:00 Test Item Value Reference Range Interpretation Comments POC-GLUCOSE METER 70 mg/dL 70-110 : TESTED A T [facility] 6720 (BEAKER) (test code = CASPER Mariee [facility], 1538) [address]: Air Traffic Control Supervisor/Techni vanessa ID = [id number] for Lia Santiago HEMOGLOBIN [id number] 13:31:00 Test Item Value Reference Range Interpretation Comments HEMOGLOBIN A1C (BEAKER) (test code = 5.6 % 4.3-6.1 368) VITAMIN B12 AND [id number] 13:21:00 Test Item Value Reference Range Interpretation Comments VITAMIN B12 (BEAKER) (test code = 331 pg/mL 213-816 774) FOLATE (BEAKER) (test code = 362) 33.20 ng/mL >=7.00 Air Traffic Control Supervisor ID - GARRETT WURINALYSIS W/ REFLEX URINE [id number] 12:37:00 Test Item Value Reference Range Interpretation Comments COLOR (BEAKER) (test code = 470) Yellow CLARITY (BEAKER) (test code = 469) Hazy SPECIFIC GRAVITY UA (BEAKER) (test 1.029 1.001-1.035 code = 468) PH UA (BEAKER) (test code = 467) 6.0 5.0-8.0 PROTEIN UA (BEAKER) (test code = Negative Negative 464) GLUCOSE UA (BEAKER) (test code = Negative Negative 365) KETONES UA (BEAKER) (test code = Negative Negative 371) BILIRUBIN UA (BEAKER) (test code = Negative Negative 462) BLOOD UA (BEAKER) (test code = 461) Negative Negative NITRITE UA (BEAKER) (test code = Positive Negative A 465) LEUKOCYTE ESTERASE UA (BEAKER) Large Negative A (test code = 466) UROBILINOGEN UA (BEAKER) (test code 0.2 mg/dL 0.2-1.0 = 463) RBC UA (BEAKER) (test code = 519) < /HPF WBC UA (BEAKER) (test code = 520) 47 /HPF BACTERIA (BEAKER) (test code = 517) Few MUCUS (BEAKER) (test code = 1574) Few SQUAMOUS EPITHELIAL (BEAKER) (test < /HPF code = 516) SOURCE(BEAKER) (test code = 2795) Air Traffic Control Supervisor ID - [auto]Air Traffic Control Supervisor ID - techPOCT-GLUCOSE [id number] 12:23:00 Test Item Value Reference Range Interpretation Comments POC-GLUCOSE METER 67 mg/dL 70-110 L : TESTED A T [facility] 67[address] (BEAKER) (test code = [place], 1538) [address]: Air Traffic Control Supervisor/Techni vanessa ID = [id number] for [place], [place] RAD, CHEST, 1 VIEW, NON [id number] 10:31:00Reason for exam:- >encephalopathy infection sourceShould this be performed at the bedside?->YesFINAL REPORT Chest, portable AP view History: Encephalopathy, infection Comparison: No comparisons available for review IMPRESSION: The heart is within normal limits of size. No focal consolidation, sizable pleural effusion, or pneumothorax. No acute osseous abnormality. Signed:Grover Grover Verified Date/Time: 12/23/2019 10:31:15 Reading Location: [address] Ortho Consult Reading Room LACTATE DEHYDROGENASE (LDH)2019-12-23 10:24:00 Test Item Value Reference Range Interpretation Comments LACTATE DEHYDROGENASE 445 U/L 125-220 H Specim en slightly (BEAKER) (test code = hemoly zed 635) Air Traffic Control Supervisor ID - PJTROPONIN [id number] 10:13:00 Test Item Value Reference Range Interpretation Comments TROPONIN I (BEAKER) (test code = 397) < ng/mL 0.00-0.03 Troponin I (TnI) levels must be interpreted in the context of the presenting symptoms and the clinical findings. Elevated TnI levels indicate myocardial damage, but are not specific for ischemic heart disease. Elevated TnI levels are seen in patients with other cardiac conditions (including myocarditis and congestive heart failure), and slight TnI elevations occur in patients with other conditions, including sepsis, renal failure, acidosis, acute neurological disease, and persistent tachyarrhythmia.Air Traffic Control Supervisor ID - PJLACTIC ACID, ARTERIAL 2019-12-23 09:52:00 Test Item Value Reference Range Interpretation Comments LACTATE BLOOD ARTERIAL (2) 0.6 mmol/L 0.5-2.2 (BEAKER) (test code = 2874) Air Traffic Control Supervisor ID - PJVITAMIN B12 AND [id number] 09:20:00 Test Item Value Reference Range Interpretation Comments VITAMIN B12 (BEAKER) (test code = 329 pg/mL 213-816 774) FOLATE (BEAKER) (test code = 362) 32.60 ng/mL >=7.00 Air Traffic Control Supervisor ID - ZORAN [id number] 09:16:00 Test Item Value Reference Range Interpretation Comments HOMOCYSTEINE (BEAKER) (test code 11.5 umol/L 5.1-15.4 = 642) Air Traffic Control Supervisor ID - ZORAN [id number] 08:44:00 Test Item Value Reference Range Interpretation Comments RPR SCREEN (CARLO) (test code = Nonreactive Nonreactive 420) CT, CAROTID, [id number] 07:51:00FINAL REPORT CLINICAL HISTORY: Stroke, follow up TECHNIQUE: Initially, noncontrast head CT images were performed. Contiguous contrast-enhanced axial images through the neck followed by axial images through the head with coronal and sagittal reformations to assess the arterial circulation. 3-D reconstructions were performed using a volume rendered technique separately on a workstation. This exam was performed according to the departmental dose optimization program which includes automated exposure control, adjustment of the mA and/or kV according to the patient size, and/or use of an iterative reconstruction technique. COMPARISON: None FINDINGS: There is no CT evidence of acute infarct or hemorrhage. There is periventricular and subcortical white matter hypodensity which is nonspecific but compatible with chronic microvascular ischemic change. There are atherosclerotic calcifications of the intracranial circulation. There is generalized parenchymal volume loss without hydrocephalus, midline shift, or apparent mass effect. The skull is intact. The CT angiogram images of the head reveal no evidence of intracranial aneurysm, critical stenosis, or proximal branch vessel occlusion. There are bilateral origin posterior cerebral arteries. The major intradural venous sinuses are patent. There is no hemodynamically significant stenosis in either cervical internal carotidartery by NASCET criteria. The vertebral arteries in the neck are patent including their origins. There are dorsal spondylitic changes in the cervical spine. There are scattered subcentimeter lymph nodes in the neck. The visualized lung apices are clear. IMPRESSION: No CT evidence of acute infarct or hemorrhage. No evidence for a [place] large vessel occlusion. No evidence of hemodynamically significant stenosis in the cervical carotid or vertebral arteries by NASCET criteria. Signed: Karla Vallejo MDReport Verified Date/Time: 12/23/2019 07:51:59 Reading Location: [address] Neuro Reading Room [facility], CTANGIO [id number] 07:51:00FINAL REPORT CLINICAL HISTORY: Stroke, follow up TECHNIQUE: Initially, noncontrast head CT images were performed. Contiguous contrast-enhanced axial images through the neck followed by axial images through the head with coronal and sagittal reformations to assess the arterial circulation. 3-D reconstructions were performed using a volume rendered technique separately on a workstation. This exam was performed according to the departmental dose optimization program which includes automated exposure control, adjustment of the mA and/or kV according to the patient size, and/or use of an iterative reconstruction technique. COMPARISON: None FINDINGS: There is no CT evidence of acute infarct or hemorrhage. There is periventricular and subcortical white matter hypodensity which is nonspecific but compatible with chronic microvascular ischemic change. There are atherosclerotic calcifications of the intracranial circulation. There is generalized parenchymal volume loss without hydrocephalus, midline shift, or apparent mass effect. The skull is intact. The CT angiogram images of the head reveal no evidence of intracranial aneurysm, critical stenosis, or proximal branch vessel occlusion. There are bilateral origin posterior cerebral arteries. The major intradural venous sinuses are patent. There is no hemodynamically significant stenosis in either cervical internal carotidartery by NASCET criteria. The vertebral arteries in the neck are patent including their origins. There are dorsal spondylitic changes in the cervical spine. There are scattered subcentimeter lymph nodes in the neck. The visualized lung apices are clear. IMPRESSION: No CT evidence of acute infarct or hemorrhage. No evidence for a [place] large vessel occlusion. No evidence of hemodynamically significant stenosis in the cervical carotid or vertebral arteries by NASCET criteria. Signed: Karla Vallejo MDReport Verified Date/Time: 12/23/2019 07:51:59 Reading Location: [address] Neuro Reading Room POCT- GLUCOSE [id number] 06:34:00 Test Item Value Reference Range Interpretation Comments POC-GLUCOSE METER 71 mg/dL 70-110 : TESTED A T [facility] (BEAKER) (test code = [place], 1538) [address]: Air Traffic Control Supervisor/Techni vanessa ID = [id number] for ARA RODRIGUEZ LIPID [id number] 04:30:00 Test Item Value Reference Range Interpretation Comments TRIGLYCERIDES (BEAKER) 55 mg/dL Speci men slightly (test code = 540) hemolyzed CHOLESTEROL (BEAKER) 98 mg/dL Specime n slightly (test code = 631) hemolyzed HDL CHOLESTEROL (BEAKER) 51 mg/dL (test code = 976) LDL CHOLESTEROL 36 mg/dL CALCULATED (BEAKER) (test code = 633) Triglyceride Reference Range: Low Risk <150 Borderline 150-199 High Risk 200-499 Very High Risk >=500Cholesterol Reference Range: Low Risk <200 Borderline 200-239 High Risk >240HDL Cholesterol Reference Range: Low Risk >=60 High Risk <40LDL Cholesterol Reference Range: Optimal <100 Near Optimal 100-129 Borderline 130-159 High 160-189 Very High >=190 Air Traffic Control Supervisor ID - LMHEPATIC FUNCTION [id number] 02:06:00 Test Item Value Reference Range Interpretation Comments TOTAL PROTEIN (BEAKER) 5.0 gm/dL 6.0-8.3 L Speci men slightly (test code = 770) hemolyzed ALBUMIN (BEAKER) (test 2.3 g/dL 3.5-5.0 L Speci men slightly code = 1145) hemolyzed BILIRUBIN TOTAL 0.3 mg/dL 0.2-1.2 Specimen sli ghtly (BEAKER) (test code = hemoly zed 377) BILIRUBIN DIRECT 0.1 mg/dL 0.1-0.5 Specimen sl ightly (BEAKER) (test code = hemoly zed 706) ALKALINE PHOSPHATASE 78 U/L 40-150 (BEAKER) (test code = 346) AST (SGOT) (BEAKER) 18 U/L 5-34 Specimen slightly (test code = 353) hemolyzed ALT (SGPT) (BEAKER) 9 U/L 6-55 Specimen slightly (test code = 347) hemolyzed Air Traffic Control Supervisor ID - PIAYA [id number] 02:00:00 Test Item Value Reference Range Interpretation Comments PROCALCITONIN (BEAKER) (test code 21.29 ng/mL <0.05 HH = 3036) SEPSIS RISK (ng/mL)Low: 0.05-0.50Intermediate: 0.51-2.00High: >=2.01TSH/FREE T4 IF [id number] 01:26:00 Test Item Value Reference Range Interpretation Comments THYROID STIMULATING HORMONE 0.719 uIU/mL 0.350-4.940 (BEAKER) (test code = 772) Air Traffic Control Supervisor ID - PIEL LBASIC METABOLIC [id number] 01:12:00 Test Item Value Reference Range Interpretation Comments SODIUM (BEAKER) 136 meq/L 136-145 (test code = 381) POTASSIUM (BEAKER) 4.2 meq/L 3.5-5.1 Specimen slightly (test code = 379) hemolyzed CHLORIDE (BEAKER) 109 meq/L 98-107 H (test code = 382) CO2 (BEAKER) (test 20 meq/L 22-29 L code = 355) BLOOD UREA NITROGEN 22 mg/dL 7-21 H (BEAKER) (test code = 354) CREATININE (BEAKER) 0.59 mg/dL 0.57-1.25 Specimen slightly (test code = 358) hemolyzed GLUCOSE RANDOM 79 mg/dL 70-105 (BEAKER) (test code = 652) CALCIUM (BEAKER) 7.3 mg/dL 8.4-10.2 L (test code = 697) EGFR (BEAKER) (test 101 mL/min/1.73 ESTIM ATED GFR IS code = 1092) sq m NOT ACCURATE CREATININE CLEARANCE IN PREDICTING GLOMERULAR FILTRATION RATE . ESTIMATED GFR I S NOT APPLICABLE FOR DIALYSIS PATIEN TS. [employer] Supervisor ID - PIEL LTROPONIN [id number] 01:11:00 Test Item Value Reference Range Interpretation Comments TROPONIN I (BEAKER) (test code = 0.02 ng/mL 0.00-0.03 397) Troponin I (TnI) levels must be interpreted in the context of the presenting symptoms and the clinical findings. Elevated TnI levels indicate myocardial damage, but are not specific for ischemic heart disease. Elevated TnI levels are seen in patients with other cardiac conditions (including myocarditis and congestive heart failure), and slight TnI elevations occur in patients with other conditions, including sepsis, renal failure, acidosis, acute neurological disease, and persistent tachyarrhythmia.[employer] Supervisor ID - PIEL LCBC W/PLT COUNT & AUTO [id number] 00:40:00 Test Item Value Reference Range Interpretation Comments WHITE BLOOD CELL COUNT (BEAKER) 7.9 K/ L 3.5-10.5 (test code = 775) RED BLOOD CELL COUNT (BEAKER) 2.81 M/ L 3.93-5.22 L (test code = 761) HEMOGLOBIN (BEAKER) (test code = 8.0 GM/DL 11.2-15.7 L 410) HEMATOCRIT (BEAKER) (test code = 26.2 % 34.1-44.9 L 411) MEAN CORPUSCULAR VOLUME (BEAKER) 93.2 fL 79.4-94.8 (test code = 753) MEAN CORPUSCULAR HEMOGLOBIN 28.5 pg 25.6-32.2 (BEAKER) (test code = 751) MEAN CORPUSCULAR HEMOGLOBIN CONC 30.5 GM/DL 32.2-35.5 L (BEAKER) (test code = 752) RED CELL DISTRIBUTION WIDTH 16.8 % 11.7-14.4 H (BEAKER) (test code = 412) PLATELET COUNT (BEAKER) (test 475 K/CU MM 150-450 H code = 756) MEAN PLATELET VOLUME (BEAKER) 8.8 fL 9.4-12.3 L (test code = 754) NUCLEATED RED BLOOD CELLS 0 /100 WBC 0-0 (BEAKER) (test code = 413) NEUTROPHILS RELATIVE PERCENT 79 % (BEAKER) (test code = 429) LYMPHOCYTES RELATIVE PERCENT 7 % (BEAKER) (test code = 430) MONOCYTES RELATIVE PERCENT 12 % (BEAKER) (test code = 431) EOSINOPHILS RELATIVE PERCENT 2 % (BEAKER) (test code = 432) BASOPHILS RELATIVE PERCENT 0 % (BEAKER) (test code = 437) NEUTROPHILS ABSOLUTE COUNT 6.24 K/ L 1.56-6.13 H (BEAKER) (test code = 670) LYMPHOCYTES ABSOLUTE COUNT 0.56 K/ L 1.18-3.74 L (BEAKER) (test code = 414) MONOCYTES ABSOLUTE COUNT (BEAKER) 0.96 K/ L 0.24-0.36 H (test code = 415) EOSINOPHILS ABSOLUTE COUNT 0.13 K/ L 0.04-0.36 (BEAKER) (test code = 416) BASOPHILS ABSOLUTE COUNT (BEAKER) 0.01 K/ L 0.01-0.08 (test code = 417) IMMATURE GRANULOCYTES-RELATIVE 0 % 0-1 PERCENT (BEAKER) (test code = 5041)
--- NOTE | 2020-01-18 19:56 | RAD REPORT ---
EXAM DESCRIPTION: [facility] Single View01/18/2020 7:49 pm CLINICAL HISTORY: fever COMPARISON: December 2019 FINDINGS: The lungs appear clear of acute infiltrate. The heart is normal size IMPRESSION: No acute abnormalities displayed
--- NOTE | 2020-01-18 20:09 | RAD REPORT ---
EXAM DESCRIPTION: CT - Head Brain Wo Cont - 01/18/2020 7:50 pm CLINICAL HISTORY: Alteration of awareness/confusion COMPARISON: December 2019 TECHNIQUE: Computed axial tomography of the head was obtained. IV contrast was not requested. All CT scans are performed using dose optimization technique as appropriate and may include automated exposure control or mA/KV adjustment according to patient size. FINDINGS: An intracranial bleed is not seen . The ventricles are normal in caliber. No extra-axial fluid collection is noted. Mild to moderate low-density areas within periventricular, deep and subcortical white matter likely r epresent ischemic changes secondary to small vessel disease. Fluid within the sinuses/ mastoids is not seen. IMPRESSION: No acute intracranial abnormality is seen. If patient's symptoms persist MRI of the bra in would be recommended.
[2020-01-18 20:21] LABS: Protime INR 1.1
[2020-01-18] MEDS ORDERED: ACETAMINOPHEN 650MG/RECT SUPP PR ONE (20:24)
[2020-01-18] MEDS ORDERED: NA CHLORIDE 0.9% 1,000 ML ONE (20:24)
[2020-01-18 20:34] LABS: Absolute Lymphocytes (CBC) 0.9 K/uL (0.7-4.9); Basophils % 0.5 % (0-1.3); Hematocrit 33.7 % (36.0-45.0); Lymphocytes % 5.1 % (15.3-44.8); MPV 7.3 fL (7.6-11.3); RBC Red Blood Cell Count 3.59 M/uL (3.86-4.86)
[2020-01-18 20:36] LABS: ALT/SGPT 21 U/L (12-78); AST/SGOT 33 U/L (15-37); Albumin 3.1 g/dL (3.4-5.0); Alkaline Phosphatase 85 U/L (45-117); Amylase 68 U/L (25-115); BUN Blood Urea Nitrogen 75 mg/dL (7-18); Bicarbonate 25 mmol/L (21-32); Bilirubin Direct 0.2 mg/dL (0-0.2); Bilirubin Total 0.5 mg/dL (0.2-1.0); CKMB Creatine Kinase MB < 1.0 ng/mL (0.3-3.6); Creatine Phosphokinase 167 U/L (26-192); Glucose Level 141 mg/dL (74-106); Lipase 145 U/L (73-393); Potassium 3.4 mmol/L (3.5-5.1); Protein, Total 7.6 g/dL (6.4-8.2); Troponin (Emerg Dept Use Only) 0.06 ng/mL (0.0-0.045)
[2020-01-18 20:38] LABS: Sodium Level 161 mmol/L (136-145)
[2020-01-18 21:04] LABS: Blood Morphology Comment NOT SEEN (NOT SEEN); Platelet Estimate INCR; Urine White Blood Cell Casts OK
[2020-01-18] MEDS ORDERED: PIPER/TAZO/NS 3.375gm 3.375 GM/100 ML BAG ONE (21:04)
[2020-01-18 21:32] LABS: Urine Blood NEGATIVE (NEG); Urine Glucose NEGATIVE (NEG); Urine Protein 1+ (NEG); Urine pH 5.5 (5.0-7.0)
[2020-01-18 22:00] LABS: Body Fluid Source CSF; Fluid Total Volume 1.3 ml
[2020-01-18 22:01] LABS: Appearance CLEAR (CLEAR); Color of fluid Colorless (COLORLESS)
[2020-01-18 22:11] LABS: Urine Bacteria >50 /HPF (<20); Urine Culture Reflex Order REFLEXED; Urine RBC <5 /HPF (NONE SEEN)
--- NOTE | 2020-01-18 22:14 | ER ---
Nurse's Notes [facility] Name: Talia Nielson Age: 69 yrs Sex: Female : 1950 Arrival Date: 01/18/2020 Time: 19:15 Bed 8 Private MD: Diagnosis: Hyperosmolality and hypernatremia;Dehydration;Other sepsis Presentation: 01/17 19:30 Chief complaint: EMS states: PT been having AMS for a few days, was normally AOx3, now wh mumbling. Pt also with fever at 100.8. Pt was admitted for same symptoms last December 2019 for same symptoms per staff. Coronavirus screen: Proceed with normal triage. Patient denies a cough. Patient denies shortness of breath or difficulty breathing. Patient reports a measured and/or subjective temperature greater than 100.4F. Patient denies travel on a cruise ship or to a country the [facility] currently lists as an affected area. Patient denies contact with known and/or suspected case of COVID-19. Ebola Screen: Patient negative for fever greater than or equal to 101.5 degrees Fahrenheit, and additional compatible Ebola Virus Disease symptoms Patient denies exposure to infectious person. Initial Sepsis Screen: Does the patient meet any 2 criteria? Altered Mental Status. HR > 90 bpm. Yes Does the patient have a suspected source of infection? Yes: Dysuria/Frequency/Urgency/UTI. Risk Assessment: Do you want to hurt yourself or someone else? Patient reports no desire to harm self or others. Onset of symptoms is unknown. 19:30 Method Of Arrival: EMS: [facility] 19:30 Acuity: LIZZ 3 Historical: - Allergies: 20:52 No Known Allergies; - Home Meds: 20:52 aspirin 81 mg Oral chew 1 tab once daily [Active]; atorvastatin 10 mg Oral tab 1 tab wh once daily [Active]; metformin 500 mg Oral tab 1 tab 2 times per day [Active]; olanzapine 10 mg Oral tab 1 tab once daily [Active]; omeprazole 20 mg Oral cpDR 1 cap once daily [Active]; Tegretol XR 400 mg Oral Tb12 1 tab daily [Active]; megastrol [Active]; - PMHx: 20:52 Alzheimers; Anxiety; Ataxia; constipation; COPD; Diabetes - NIDDM; DYSPHAGIA; GERD; wh Hyperlipidemia; Hypertension; Hypothyroidism; Major Depressive Disorder; Schizophrenia; slurred speech; UTI; - Immunization history:: Adult Immunizations up to date. - Social history:: Smoking status: Patient/guardian denies using. Screenin:30 Abuse screen: Denies threats or abuse. Denies injuries from another. Nutritional wh screening: No deficits noted. Tuberculosis screening: No symptoms or risk factors identified. Fall Risk None identified. Assessment: 19:45 General: Appears in no apparent distress. Behavior is quiet. Pain: Unable to use pain scale. Patient is disoriented. Neuro: Level of Consciousness is awake, confused. Cardiovascular: Heart tones S1 S2. Respiratory: Airway is patent Respiratory effort is even, unlabored, Respiratory pattern is regular, symmetrical, Breath sounds are clear bilaterally. GI: Abdomen is flat, non-distended. : No deficits noted. EENT: No deficits noted. Derm: Skin is intact, Skin is redness on bottom. Musculoskeletal: Circulation, motion, and sensation intact. 20:54 Reassessment: Patient appears in no apparent distress at this time. No changes from previously documented assessment. Patient and/or family updated on plan of care and expected duration. Pain level reassessed. 22:30 Reassessment: Patient appears in no apparent distress at this time. No changes from previously documented assessment. Patient and/or family updated on plan of care and expected duration. Pain level reassessed. 01/18 00:00 Reassessment: Patient appears in no apparent distress at this time. No changes from previously documented assessment. Patient and/or family updated on plan of care and expected duration. Pain level reassessed. Vital Signs: 01/17 19:30 BP 135 / 87; Pulse 113; Resp 20; Temp 100.4(O); Pulse Ox 94% 2 lpm ; Weight 32.02 kg; Height 5 ft. 0 in. (152.40 cm); 20:45 BP 121 / 78; Pulse 87; Resp 18; Pulse Ox 97% 2 lpm ; 22:30 BP 141 / 61; Pulse 101; Resp 20; Pulse Ox 94% 2 lpm ; 01/18 00:00 BP 135 / 86; Pulse 109; Resp 20; Pulse Ox 93% 2 lpm ; 01/17 19:30 Body Mass Index 13.79 (32.02 kg, 152.40 cm) ED Course: 01/17 19:15 Patient arrived in ED. cf2 19:20 Sheri Burks is Primary Nurse. 19:23 eHmanth Cuenca MD is Attending Physician. [facility] 19:35 Triage completed. 19:45 Patient has correct armband on for positive identification. Placed in gown. Bed in low wh position. Call light in reach. diet supervisor on. Pulse ox on. NIBP on. 19:45 Arm band placed on right wrist. 19:49 Chest Single View XRAY In Process Unspecified. EDMS 19:49 CT Head Brain wo Cont In Process Unspecified. EDAZ 20:00 Inserted saline lock: 20 gauge in right antecubital area, using aseptic technique. Blood collected. 21:30 Assist provider with lumbar puncture: Set up LP tray. Performed by Hemanth Cuenca MD CSF is clear. Puncture site dressed with band aid, Procedure was successful. Patient tolerated well. 21:42 Ra Chan is Hospitalizing Provider. [facility] 01/18 00:00 Patient admitted, IV remains in place. Administered Medications: 01/17 20:20 Drug: NS 0.9% (30 ml/kg) 30 ml/kg Route: IV; Rate: bolus; Site: right antecubital; 22:11 Follow up: Response: No adverse reaction; IV Status: Completed infusion 20:25 Drug: Tylenol Suppository 650 mg Route: IN; 22:10 Follow up: Response: No adverse reaction; Temperature is decreased 20:50 Drug: Zosyn 3.375 grams Route: IVPB; Infused Over: 60 mins; Site: right antecubital; 22:10 Follow up: Response: No adverse reaction; IV Status: Completed infusion Outcome: 21:44 Decision to Hospitalize by Provider. [facility] 01/18 00:00 Admitted to ER Hold. Please see [facility] for further documentation. Condition: stable Instructed on the need for admit. 07:36 Patient left the ED. [email or web address] Signatures: Dispatcher [employer] Enedina Cunningham RN RN [id number] Sheri Burks Sindy Weeks cf2 Hemanth Cuenca MD MD 7 Corrections: (The following items were deleted from the chart) 01/17 19:24 19:20 Initial Sepsis Screen: Does the patient meet any 2 criteria? [facility] 20:08 19:30 BP 135 / 87; Pulse 113bpm; Resp 20bpm; Pulse Ox 94% 2 lpm; Temp 100.4F Oral; [facility]
--- NOTE | 2020-01-18 22:14 | EDPHYS ---
Physician Documentation [facility] Name: Talia Nielson Age: 69 yrs Sex: Female : 1950 Arrival Date: 01/18/2020 Time: 19:15 Bed 8 Private MD: ED Physician Hemanth Cuenca HPI: 01/17 19:41 This 69 yrs old Female presents to ER via EMS with complaints of Altered mh7 Mental Status. 19:41 The patient presents with decreased mental status, decreased responsiveness. Onset: The mh7 symptoms/episode began/occurred long term reports patient has had AMS for a few days. Possible causes: CVA or TIA, low blood sugar, sepsis. Associated signs and symptoms: The patient has no apparent associated signs or symptoms. Current symptoms: In the emergency department the patient's symptoms are unchanged from the initial presentation. Patient's baseline: Neuro: alert and fully oriented. Unable to obtain HPI due to altered mental status. The patient has experienced a previous episode, last month. Patient sent from long term due to AMS for the past few days. She had a similar issue 1 month ago and was reportedly found to have an infectious source.. Historical: - Allergies: 20:52 No Known Allergies; - Home Meds: 20:52 aspirin 81 mg Oral chew 1 tab once daily [Active]; atorvastatin 10 mg Oral tab 1 tab wh once daily [Active]; metformin 500 mg Oral tab 1 tab 2 times per day [Active]; olanzapine 10 mg Oral tab 1 tab once daily [Active]; omeprazole 20 mg Oral cpDR 1 cap once daily [Active]; Tegretol XR 400 mg Oral Tb12 1 tab daily [Active]; megastrol [Active]; - PMHx: 20:52 Alzheimers; Anxiety; Ataxia; constipation; COPD; Diabetes - NIDDM; DYSPHAGIA; GERD; wh Hyperlipidemia; Hypertension; Hypothyroidism; Major Depressive Disorder; Schizophrenia; slurred speech; UTI; - Immunization history:: Adult Immunizations up to date. - Social history:: Smoking status: Patient/guardian denies using. ROS: 19:41 Unable to obtain ROS due to altered mental status. mh7 22:57 Constitutional: Positive for fever, poor PO intake. mh7 Exam: 19:41 Head/Face: Normocephalic, atraumatic. Eyes: Pupils equal round and reactive to light, mh7 extra-ocular motions intact. Lids and lashes normal. Conjunctiva and sclera are non-icteric and not injected. Cornea within normal limits. Periorbital areas with no swelling, redness, or edema. ENT: Nares patent. No nasal discharge, no septal abnormalities noted. Tympanic membranes are normal and external auditory canals are clear. Oropharynx with no redness, swelling, or masses, exudates, or evidence of obstruction, uvula midline. Mucous membranes moist. Neck: Trachea midline, no thyromegaly or masses palpated, and no cervical lymphadenopathy. Supple, full range of motion without nuchal rigidity, or vertebral point tenderness. No Meningismus. Chest/axilla: Normal chest wall appearance and motion. Nontender with no deformity. No lesions are appreciated. 19:41 Abdomen/GI: Soft, non-tender, with normal bowel sounds. No distension or tympany. No guarding or rebound. No evidence of tenderness throughout. Back: No spinal tenderness. No costovertebral tenderness. Full range of motion. Skin: Warm, dry with normal turgor. Normal color with no rashes, no lesions, and no evidence of cellulitis. 19:41 Constitutional: The patient appears febrile, lethargic, obviously ill. 19:41 Cardiovascular: Rate: tachycardic, Rhythm: regular, Pulses: no pulse deficits are appreciated, Heart sounds: normal, normal S1and S2, Edema: is not appreciated, JVD: is not appreciated. 19:41 ECG was reviewed by the Attending Physician. 19:41 Respiratory: the patient does not display signs of respiratory distress, Respirations: normal, Breath sounds: rhonchi, that are mild, are scattered, Respiratory rate: normal 22:48 Skin: Warm, dry with normal turgor. Normal color with no rashes, no lesions. Erythema mh7 over sacral and upper buttocks are. 22:48 Musculoskeletal/extremity: Extremities: the patient is contracted, in the left arm, ROM: the patient is contracted, Circulation is intact in all extremities. 22:48 Neuro: Orientation: Not oriented to person, place, time, unable to test, AMS, Mentation: unable to follow commands, Memory: unable to test, AMS, Cranial nerves: unable to test, AMS, Cerebellar function: unable to test, AMS, Motor: the patient is contracted, unable to test, AMS, Sensation: unable to test, AMS, Gait: not tested. seizure activity, is not displayed by the patient, Abnormal movements: there are no abnormal movements. Vital Signs: 19:30 BP 135 / 87; Pulse 113; Resp 20; Temp 100.4(O); Pulse Ox 94% 2 lpm ; Weight 32.02 kg; Height 5 ft. 0 in. (152.40 cm); 20:45 BP 121 / 78; Pulse 87; Resp 18; Pulse Ox 97% 2 lpm ; 22:30 BP 141 / 61; Pulse 101; Resp 20; Pulse Ox 94% 2 lpm ; 01/18 00:00 BP 135 / 86; Pulse 109; Resp 20; Pulse Ox 93% 2 lpm ; 01/17 19:30 Body Mass Index 13.79 (32.02 kg, 152.40 cm) Procedures: 01/17 21:39 Lumbar Puncture: Patient placed in left lateral decubitus position. Prepped with [facility] Betadine. Draped using sterile technique. Collected 1.5 ml's of clear fluid. Puncture site dressed with band aid, Patient tolerated well. MDM: 19:23 Patient medically screened. [facility] 21:39 Differential Diagnosis: CVA, electrolyte abnormality, hypoglycemia, intracranial bleed, [facility] meningitis, pneumonia, sepsis, UTI, volume depletion. Data reviewed: vital signs, nurses notes, EMS record, long term records, lab test result(s), CBC, white blood cell count, hemoglobin, hematocrit, platelets, electrolytes, sodium, urinalysis. Data interpreted: radiation monitor: rate is 87 beats/min, rhythm is normal sinus rhythm, regular, Interpretation: normal rate, normal rhythm, Pulse oximetry: on room air 2L(s) per nasal canula, is 97 %. Interpretation: acceptable. 01/17 19:29 Order name: Amylase, Serum [facility] 01/17 19:29 Order name: Basic Metabolic Panel; Complete Time: 20:41 [facility] 01/17 19:29 Order name: Blood Culture Adult (2) [facility] 01/17 19:29 Order name: CBC with Diff; Complete Time: 21:34 [facility] 01/17 19:29 Order name: Ckmb; Complete Time: 20:42 [facility] 01/17 19:29 Order name: CPK; Complete Time: 20:42 [facility] 01/17 19:29 Order name: Lactate; Complete Time: 20:37 [facility] 01/17 19:29 Order name: LFT's; Complete Time: 20:42 [facility] 01/17 19:29 Order name: Lipase; Complete Time: 20:42 [facility] 01/17 19:29 Order name: Procalcitonin; Complete Time: 21:34 [facility] 01/17 19:29 Order name: Protime (+inr); Complete Time: 20:42 [facility] 01/17 19:29 Order name: Ptt, Activated; Complete Time: 20:42 [facility] 01/17 19:29 Order name: Troponin (emerg Dept Use Only); Complete Time: 20:42 [facility] 01/17 19:29 Order name: Urine Microscopic Only; Complete Time: 05:49 [facility] 01/17 19:30 Order name: Amylase Level; Complete Time: 20:42 [facility] 01/17 20:17 Order name: Glucose, Ancillary Testing; Complete Time: 20:37 [facility] 01/17 20:40 Order name: Urine Dipstick--Ancillary (enter results); Complete Time: 21:34 [facility] 01/17 21:04 Order name: CBC Smear Scan; Complete Time: 21:34 [facility] 01/17 21:40 Order name: CSF Bacterial Antigens (tube 1) [facility] 01/17 21:40 Order name: Csf Culture [facility] 01/17 21:40 Order name: Fluid Cell Count,Body [facility] 01/17 21:40 Order name: Spinal Fluid Profile [facility] 01/17 21:57 Order name: CSF Glucose; Complete Time: 05:49 [facility] 01/17 21:57 Order name: CSF Total Protein; Complete Time: 05:49 [facility] 01/17 21:57 Order name: CSF SPECIMEN; Complete Time: 05:49 [facility] 01/17 21:57 Order name: Cell Count Profile; Complete Time: 05:49 [facility] 01/17 21:57 Order name: CSF Culture [facility] 01/17 22:13 Order name: Urine Culture [facility] 01/17 23:42 Order name: CORONAVIRUS; Complete Time: 05:49 [facility] 01/18 01:42 Order name: Troponin I; Complete Time: 05:49 [facility] 01/17 19:29 Order name: Chest Single View XRAY; Complete Time: 20:37 [facility] 01/17 19:29 Order name: Accucheck; Complete Time: 20:03 7 01/17 19:29 Order name: Cardiac monitoring; Complete Time: 20:04 7 01/17 19:29 Order name: EKG - Nurse/Tech; Complete Time: 20:04 7 01/17 19:29 Order name: IV Saline Lock - Large Bore; Complete Time: 20:04 [facility] 01/17 19:29 Order name: Labs collected and sent; Complete Time: 20:04 [facility] 01/17 19:29 Order name: O2 Per Protocol; Complete Time: 20:04 [facility] 01/17 19:29 Order name: O2 Sat Monitoring; Complete Time: 20:04 [facility] 01/17 19:29 Order name: Urine Dipstick-Ancillary (obtain specimen); Complete Time: 20:37 7 01/17 19:29 Order name: CT Head Brain wo Cont; Complete Time: 20:37 7 01/17 21:40 Order name: LP Consents; Complete Time: 21:46 7 01/17 21:40 Order name: LP Setup; Complete Time: 21:46 7 01/18 01:56 Order name: Basic Metabolic Panel EDMS 01/18 05:21 Order name: CBC with Automated Diff; Complete Time: 05:49 EDMS 01/18 05:39 Order name: Comprehensive Metabolic Panel; Complete Time: 05:49 EDMS 01/18 05:39 Order name: Phosphorus; Complete Time: 05:49 EDMS 01/18 05:39 Order name: Troponin I; Complete Time: 05:49 EDMS 01/18 05:39 Order name: Magnesium; Complete Time: 05:49 EDMS 01/18 05:39 Order name: Thyroid Stimulating Hormone; Complete Time: 05:49 EDMS EC:41 Rate is 111 beats/min. Rhythm is regular. QRS [place] is Normal. MO interval is normal. mh7 QRS interval is normal. QT interval is normal. No Q waves. T waves are Normal. No ST changes noted. Clinical impression: Sinus tachycardia. Administered Medications: 20:20 Drug: NS 0.9% (30 ml/kg) 30 ml/kg Route: IV; Rate: bolus; Site: right antecubital; 22:11 Follow up: Response: No adverse reaction; IV Status: Completed infusion 20:25 Drug: Tylenol Suppository 650 mg Route: MO; 22:10 Follow up: Response: No adverse reaction; Temperature is decreased 20:50 Drug: Zosyn 3.375 grams Route: IVPB; Infused Over: 60 mins; Site: right antecubital; 22:10 Follow up: Response: No adverse reaction; IV Status: Completed infusion Disposition: 01/18/20 21:44 Hospitalization ordered by Ra Chan for Inpatient Admission. Preliminary diagnosis are Hyperosmolality and hypernatremia, Dehydration, Other sepsis. - Bed requested for Telemetry/MedSurg (Inpatient). - Status is Inpatient Admission. [facility] - Condition is Fair. - Problem is an acute exacerbation. - Symptoms have improved. Signatures: Dispatcher [employer] EDLuzmaria Holliday RN RN Enedina Slaughter RN RN [facility] Sheri Burks Hemanth Cuenca MD MD 7 Corrections: (The following items were deleted from the chart) 23:19 21:44 Hospitalization Ordered by Ra Chan for Inpatient Admission. Preliminary cg diagnosis is Hyperosmolality and hypernatremia; Dehydration; Other sepsis. Bed requested for Telemetry/MedSurg (Inpatient). Status is Inpatient Admission. Condition is Fair. Problem is an acute exacerbation. Symptoms have improved. [facility] 23:25 23:19 01/18/2020 21:44 Hospitalization Ordered by Ra Chan for Inpatient cg Admission. Preliminary diagnosis is Hyperosmolality and hypernatremia; Dehydration; Other sepsis. Bed requested for Telemetry/MedSurg (Inpatient). Status is Inpatient Admission. Condition is Fair. Problem is an acute exacerbation. Symptoms have improved. 23:57 23:25 01/18/2020 21:44 Hospitalization Ordered by aR Chan for Inpatient cg Admission. Preliminary diagnosis is Hyperosmolality and hypernatremia; Dehydration; Other sepsis. Bed requested for Telemetry/MedSurg (Inpatient). Status is Inpatient Admission. Condition is Fair. Problem is an acute exacerbation. Symptoms have improved. 01/18 05:47 01/17 23:57 01/18/2020 21:44 Hospitalization Ordered by Ra Chan for Inpatient cg Admission. Preliminary diagnosis is Hyperosmolality and hypernatremia; Dehydration; Other sepsis. Bed requested for [facility]. Status is Inpatient Admission. Condition is Fair. Problem is an acute exacerbation. Symptoms have improved. 15 05:54 05:47 01/18/2020 21:44 Hospitalization Ordered by Ra Chan for Inpatient cg Admission. Preliminary diagnosis is Hyperosmolality and hypernatremia; Dehydration; Other sepsis. Bed requested for Telemetry/MedSurg (Inpatient). Status is Inpatient Admission. Condition is Fair. Problem is an acute exacerbation. Symptoms have improved. 07:36 05:54 01/18/2020 21:44 Hospitalization Ordered by Ra Chan for Inpatient jl7 Admission. Preliminary diagnosis is Hyperosmolality and hypernatremia; Dehydration; Other sepsis. Bed requested for Telemetry/MedSurg (Inpatient). Status is Inpatient Admission. Condition is Fair. Problem is an acute exacerbation. Symptoms have improved.
[2020-01-18 22:19] LABS: CSF Glucose 92 mg/dL (40-70)
[2020-01-18 22:23] LABS: Body Fluid WBC 7 /mm^3
--- NOTE | 2020-01-18 22:31 | P.HP ---
Certification for Inpatient Patient admitted to: Inpatient With expected LOS: >2 Midnights Practitioner: I am a practitioner with admitting privileges, knowledge of patient current condition, hospital course, and medical plan of care. Services: Services provided to patient in accordance with Admission requirements found in Title 42 Section 412.3 of the Code of Federal Regulations Patient History Date of Service: 01/18/20 Reason for admission: Altered mental status History of Present Illness: 69-year-old shelter resident with a history of CVA, oropharyngeal dysphagia, COPD was brought from a nursing to the emergency department due to altered mental status of a few days duration, and fever. Per report patient had a fever of 100.8. No reports of diarrhea or nausea or vomiting. Temperature of 100.4 was recorded in the ED. Blood work revealed hypernatremia, acute renal failure, leukocytosis, mildly elevated troponin and anemia. Chest x-ray showed no acute disease. UA shows evidence of UTI. Patient meets criteria for sepsis with fever and leukocytosis. Test for Covid 19 has been obtained. She is admitted for further management. Allergies No Known Allergies Allergy (Verified 01/19/20 00:10) Home Medications: Aspirin 81 mg PO DAILY 01/19/20 Atorvastatin Calcium 10 mg PO BEDTIME 01/19/20 Carbamazepine [Tegretol Xr] 1 tab PO BID 01/19/20 Hydrocortisone Cream [Hydrocortisone 1% Cream] 1 appl TOP BID 01/19/20 Megestrol Acetate 400 mg PO BID 01/19/20 Metformin ER [Glucophage ER] 500 mg PO BID 01/19/20 OLANZapine [Zyprexa*] 1 tab PO BEDTIME 01/19/20 Omeprazole 20 mg PO DAILY 01/19/20 - Past Medical/Surgical History -: CVA -: Dysphagia -: COPD -: Ataxia -: Depression -: Dementia - Family History Family History: Reviewed- Non-Contributory - Social History Smoking Status: Never smoker Alcohol use: No CD- Drugs: No Place of Residence: Care Home Review of Systems is unable to be obtained (Due to altered mental status) Physical Examination - Physical Exam General: In no apparent distress, Confused HEENT: PERRLA, Sclerae nonicteric Neck: Supple, JVD not distended Respiratory: Clear to auscultation bilaterally, Normal air movement Cardiovascular: No edema, Regular rate/rhythm, Normal S1 S2 Capillary refill: <2 Seconds Gastrointestinal: Normal bowel sounds, Soft and benign, Non-distended, No tenderness Musculoskeletal: No swelling, No tenderness Integumentary: No rashes Neurological: Other (Resting tremors), Dementia - Studies Laboratory Data (last 24 hrs) 01/18/20 20:00: PT 12.9 H, INR 1.10, APTT 31.4 01/18/20 20:00: WBC 17.1 H D, Hgb 10.7 L, Hct 33.7 L, Plt Count 611 H 01/18/20 20:00: Sodium 161 H*, Potassium 3.4 L, BUN 75 H, Creatinine 1.67 H, Glucose 141 H, Total Bilirubin 0.5, AST 33, ALT 21, Alkaline Phosphatase 85, Amylase 68, Lipase 145 Assessment and Plan - Problems (Diagnosis) (1) Sepsis Current Visit: Yes Status: Acute (2) Metabolic encephalopathy Current Visit: Yes Status: Acute (3) Acute cystitis without hematuria Current Visit: Yes Status: Acute (4) Hypernatremia Current Visit: Yes Status: Acute (5) Acute renal failure Current Visit: Yes Status: Acute (6) History of CVA (cerebrovascular accident) Current Visit: Yes Status: Acute (7) Oropharyngeal dysphagia Current Visit: Yes Status: Acute (8) Dementia Current Visit: Yes Status: Acute (9) Severe protein-calorie malnutrition Current Visit: Yes Status: Acute (10) Elevated troponin Current Visit: Yes Status: Acute - Plan Admit to the medical floor. Sepsis protocol initiated in the ED. Blood cultures obtained and patient given IV normal saline bolus. Start IV Cefepime and vancomycin. Follow blood cultures and urine culture IV D5 half-normal saline to treat hypernatremia Acute renal failure likely prerenal secondary to dehydration. Treat acute renal failure with IV hydration. Diet as tolerated. Decubitus Ulcer precautions. Continue home dose olanzapine and Tegretol for dementia with behavioral disturbance. Elevated troponin likely secondary to sepsis and renal insufficiency. Low suspicion for ACS. Droplet Isolation - Advance Directives Does patient have a Living Will: No Does patient have a Durable POA for Healthcare: No - Code Status/Comfort Care Code Status Assessed: No (AMS) Code Status: Full Code
[2020-01-18] MEDS ORDERED: D5 0.45 NS 1,000 ML IV SCH (23:35)
[2020-01-18] MEDS ORDERED: ONDANSETRON 4 MG/2 ML VIAL IV PRN (23:35)
[2020-01-18] MEDS ORDERED: ALBUTEROL 2.5 MG/3 ML NEB SOL NEB PRN (23:35)
[2020-01-18] MEDS ORDERED: VANCOMYCIN/NS 1 gm 1 GM/250 ML BAG IVPB SCH (23:35)
[2020-01-19 00:10] VITALS: BMI 13.8
[2020-01-19] MEDS ORDERED: VANCOMYCIN 1 GM/VIAL ONE (00:48)
[2020-01-19] MEDS ORDERED: NA CHLORIDE 0.9% 250 ML ONE (00:48)
[2020-01-19] MEDS ORDERED: D5 0.45 NS 1,000 ML IV ONE (00:49)
[2020-01-19 01:53] LABS: Potassium 3.2 mmol/L (3.5-5.1)
[2020-01-19] MEDS ORDERED: VANCOMYCIN 500 MG in NA CHLORIDE 0.9% 100 ML IVPB ONE (02:00)
[2020-01-19] MEDS: D5 0.45 NS 1,000 ML IV SCH ×2 (02:05→09:13)
[2020-01-19 05:16] LABS: Absolute Lymphocytes (CBC) 0.5 K/uL (0.7-4.9); Basophils % 0.4 % (0-1.3); Hematocrit 28.9 % (36.0-45.0); Lymphocytes % 3.5 % (15.3-44.8); MPV 7.5 fL (7.6-11.3); RBC Red Blood Cell Count 3.08 M/uL (3.86-4.86)
[2020-01-19 05:37] LABS: Albumin 2.4 g/dL (3.4-5.0); Bilirubin Total 0.3 mg/dL (0.2-1.0); Magnesium 2.6 mg/dL (1.8-2.4); Phosphorus 2.2 mg/dL (2.5-4.9); Potassium 3.3 mmol/L (3.5-5.1); Protein, Total 6.2 g/dL (6.4-8.2); Thyroid Stimulating Hormone 0.176 uIU/mL (0.360-3.740); Troponin I 0.05 ng/mL (0.0-0.045)
[2020-01-19] MEDS: KCL 20 MEQ/100 mL IVPB 20 MEQ/100 ML BAG IV SCH ×2 (06:00→08:00)
[2020-01-19] MEDS ORDERED: POTASS/SODIUM PHOSPHATE 1 PKT POWD.PACK PO SCH (06:00)
[2020-01-19] MEDS ORDERED: KCL 20 MEQ/100 mL IVPB 20 MEQ/100 ML BAG IV ONE (06:15)
[2020-01-19] MEDS: POTASS/SODIUM PHOSPHATE 1 PKT POWD.PACK PO SCH ×3 (08:00→10:13)
[2020-01-19] MEDS: HEPARIN 5000 UNIT/ML 1 ML VIAL SQ SCH ×2 (08:19→21:58)
[2020-01-19] MEDS ORDERED: CEFEPIME 1 GM/VIAL IV SCH (09:00)
[2020-01-19] MEDS: CEFEPIME/SWI 1gm 10 ML IV SCH (09:14)
[2020-01-19] MEDS ORDERED: D5 0.45 NS 1,000 ML IV SCH (10:00)
[2020-01-19] MEDS: AZITHROMYCIN 250 MG TAB PO SCH (10:08)
[2020-01-19] MEDS: MEGESTROL 400 MG/10 ML UCUP PO SCH ×3 (10:08→21:57)
[2020-01-19 10:17] LABS: Uric Acid 8.7 mg/dL (2.6-6.0)
--- NOTE | 2020-01-19 11:23 | EKG ---
Test Date: 2020-01-18 Test Time: 19:22:41 Inspector Of Dredging: RISHI MEASUREMENT RESULTS: Intervals: Rate: 111 VA: 122 QRSD: 64 QT: 304 QTc: 413 [place]: P: 82 VA: 122 QRS: 48 T: 135 INTERPRETIVE STATEMENTS: Sinus tachycardia with occasional premature ventricular complexes ST & T wave abnormality, consider lateral ischemia Abnormal ECG Compared to ECG 12/22/2019 19:44:48 Ventricular premature complex(es) now present ST (T wave) deviation now present Sinus rhythm no longer present T-wave abnormality no longer present Prolonged QT interval no longer present Possible ischemia still present Electronically Signed On 01-19-20 11:21:38 CDT by Ketan Boss
[2020-01-19] MEDS ORDERED: VANCOMYCIN 250 MG in NA CHLORIDE 0.9% 100 ML IVPB ONE (12:15)
[2020-01-19] MEDS ORDERED: ALBUTEROL INHALER 60 PUFF/8 GM IH PRN (14:04)
--- NOTE | 2020-01-19 14:40 | P.CNS ---
Date of Consult: 01/19/20 Reason for Consult: hypernatrenmia, hypokalmeia Chief Complaint: Altered mental status History of Present Illness: HPI pt is apoor historian, HX obtained from chart 69-year-old retirement resident with a history of CVA, dysphagia, COPD pt was sent from SNF for fever no respoted nausea, vomiting , chest pain or palpitation in ER Cr 1.6, NA 161 Physical Examination: General: awake, not oriented neck: supple, no elevated JVD Heart: RRR, normal S1,2 no murmur or rub chest CTAB, no rales or whezes Abdomen: soft , NT ext : mild swelling A/P NATHANIEL due to dehydration improving will order renal US COVID 19 cont supportive care hypernatremia and hyperchloremia due to dehydration will change fluid to D5w UTI cont abx Hypokalemia due to poor oral intake replace prn check Mg hypothyrodism will start on synthroid total time spent 50min Allergies No Known Allergies Allergy (Verified 01/19/20 00:10) Home Medications: Aspirin 81 mg PO DAILY 01/19/20 Atorvastatin Calcium 10 mg PO BEDTIME 01/19/20 Carbamazepine [Tegretol Xr] 1 tab PO BID 01/19/20 Hydrocortisone Cream [Hydrocortisone 1% Cream] 1 appl TOP BID 01/19/20 Megestrol Acetate 400 mg PO BID 01/19/20 Metformin ER [Glucophage ER] 500 mg PO BID 01/19/20 OLANZapine [Zyprexa*] 1 tab PO BEDTIME 01/19/20 Omeprazole 20 mg PO DAILY 01/19/20 - Past Medical/Surgical History Diabetic: No -: CVA -: Dysphagia -: COPD -: Ataxia -: Depression -: Dementia - Social History Smoking Status: Unknown if ever smoked Alcohol use: No CD- Drugs: No Place of Residence: [place] Physical Examination Temp Pulse Resp BP Pulse Ox 98.1 F 100 H 18 150/61 H 99 01/19/20 12:00 01/19/20 12:00 01/19/20 12:00 01/19/20 12:00 01/19/20 12:00 Laboratory Data (last 24 hrs) 01/18/20 20:00: PT 12.9 H, INR 1.10, APTT 31.4 01/18/20 20:00: WBC 17.1 H D, Hgb 10.7 L, Hct 33.7 L, Plt Count 611 H 01/18/20 20:00: Sodium 161 H*, Potassium 3.4 L, BUN 75 H, Creatinine 1.67 H, Glucose 141 H, Total Bilirubin 0.5, AST 33, ALT 21, Alkaline Phosphatase 85, Amylase 68, Lipase 145
[2020-01-19] MEDS: D5W 1,000 ML IV SCH (14:45)
--- NOTE | 2020-01-19 15:58 | PN ---
Date of Progress Note: 01/19/2020 Subjective: Patient seen and examined. Chart reviewed and case discussed with RN and Dr. Sanford. Spoke with the sister, who is listed as next of kin. Patient does not have a spouse and was never , does not have any children. She has 2 other sisters other than the one I spoke to that are older. Patient's older sister did state that she would want to be do not resuscitate. Patient has a low quality of life. Has been deteriorating very quickly. Over the past 3 months, has lost over 50 pounds. Has not been eating or drinking. Has advanced dementia and is a residential resident. We will change code status to do not resuscitate. Medications: List reviewed. She does not have any designated medical power of mergers and acquisitions attorney or living well. Physical Examination: Limited exam performed. Vital Signs: Temperature 98, heart rate 101, blood pressure 150/79, respirations 20, and O2 95% on 3.5 L. General: Asleep, but arousable, ill-appearing frail cachectic female. BMI 13. Demented, moaning occasionally. CV: S1, S2, sinus tachycardia. Respiratory: Clear lungs. Gastrointestinal: Abdomen is soft, nontender, nondistended. Neurologic: Moves all 4 extremities. Extremities: No clubbing, cyanosis. pedal edema present Laboratory Data: Sodium 161, potassium 3.3, chloride 131, CO2 of 25, BUN 66, creatinine 1.32, glucose 249, calcium 8.2, phosphorus 2.2, magnesium 2.6. Troponin 0.07, 0.05. TSH 0.176. WBC 15.8, H and H 8.9 and 28.9, platelets 466. UA; negative nitrite, negative leukocyte esterase, 20 to 50 wbc's, greater than 50 bacteria. CSF does not appear to have minimally elevated glucose, does not seem to indicate any infection. Blood cultures, CSF cultures, and urine cultures are all pending. COVID testing has come back positive. Assessment And Plan: 69-year-old female with; 1. Sepsis. We will continue with broad-spectrum IV antibiotics. We will add azithromycin for coronavirus disease. Adjust IV fluids. We will reduce the rate to 75. 2. Acute cystitis without hematuria. Continue antibiotics. Follow up on cultures. 3. Severe hypernatremia. We will continue D5 half NS. Nephrology consultation. 4. Metabolic encephalopathy. However, patient is demented at baseline. 5. Acute kidney injury. Nephrology consulted. We will continue with IV fluids. 6. Coronavirus disease 2019. Patient tested positive. Patient has been started on multivitamins, azithromycin. We will get type and cross and submit for convalescent plasma if available. This facility does not have access to remdesivir. 7. Oropharyngeal dysphagia. 8. Dementia. Likely Alzheimer type without behavioral disturbance. 9. Severe protein-calorie malnutrition. 10. Elevated troponin, likely secondary to sepsis. 11. Deep vein thrombosis prophylaxis, Lovenox. 12. History of cerebrovascular accident. 13. Code status. Addressed with the older sister who also mentioned that the patient did not want to be resuscitated. We will change code status to do not resuscitate. Overall, very poor prognosis. We will continue home medications. We will add multivitamins including zinc, vitamin C, and vitamin D. Infectious Disease has been consulted. /THOMAS Voice ID: [id number] Report ID: [id number] SYLVIE
--- NOTE | 2020-01-19 16:36 | P.CNS ---
Date of Consult: 01/19/20 Subjective: Patient is a 69 year old female snf resident who presents with altered mental status and fever. Patient found to have UTI and tested positive for covis-19 which I have been consulted for. Patient has history of CVA and is poor historian. Per nurse, patient is nonverbal but does open eyes to voice. Nurse reports patient is on 2L nasal cannula and has decreased appetite. History obtained from staff and medical record. Past medical/surgical history: CVA, Dysphagia, COPD, ataxia, depression, and dementia Family history: non-contributory Social history: No tobacco or alcohol use Allergies: NKDA Active Medications Acetaminophen (Tylenol -Extra Strength) 500 mg PO Q4HP PRN PRN Reason: TEMP > 100' F Stop: 02/17/20 23:36 Albuterol Sulfate (Ventolin Inhaler) 2 puff IH Q6H PRN PRN Reason: SHORTNESS OF BREATH Stop: 02/18/20 14:05 Ascorbic Acid (Vitamin C) 500 mg PO DAILY SUHAS Stop: 02/19/20 09:01 Aspirin (Aspirin Chewable) 81 mg PO DAILY [facility] Stop: 02/19/20 09:01 Atorvastatin Calcium (Lipitor) 10 mg PO BEDTIME [facility]HAS Stop: 02/18/20 21:01 Azithromycin (Zithromax -Tab) 500 mg PO DAILY [facility] Stop: 02/18/20 10:31 Last Admin: 01/19/20 10:08 Dose: 500 mg Documented by: Cholecalciferol (Vitamin D 1000 Iu Tab) 1,000 unit PO DAILY [facility] Stop: 02/19/20 09:01 Famotidine (Pepcid) 20 mg PO DAILY [facility]; Protocol Stop: 02/19/20 09:01 Heparin Sodium (Porcine) (Heparin 5,000 Units/Ml) 5,000 unit SQ Q12HR [facility] Stop: 02/18/20 09:01 Last Admin: 01/19/20 08:19 Dose: 5,000 unit Documented by: Home Med (Carbamazepine [Tegretol Xr]) 1 tab PO BID SUHAS Stop: 02/18/20 21:01 Cefepime HCl (Maxipime 1 Gm/10 Ml Ivp) 10 mls @ 120 mls/hr IV DAILY [facility] Stop: 02/18/20 09:01 Last Admin: 01/19/20 09:14 Dose: 10 mls Documented by: Vancomycin HCl 500 mg/ Sodium (Chloride) 100 mls @ 100 mls/hr IVPB Q36H [facility] Stop: 02/19/20 17:01 Dextrose/Water (Dextrose In Water (1-Liter)) 1,000 mls @ 100 mls/hr IV .Q10H [facility] Stop: 02/18/20 14:01 Last Admin: 01/19/20 14:45 Dose: 1,000 mls Documented by: Levothyroxine Sodium (Synthroid) 0.05 mg PO DAILYAC SUHAS Stop: 02/19/20 06:31 Megestrol Acetate (Megace) 400 mg PO BID [facility] Stop: 02/18/20 10:31 Last Admin: 01/19/20 10:08 Dose: 400 mg Documented by: Olanzapine (Zyprexa) 10 mg PO BEDTIME [facility] Stop: 02/18/20 21:01 Ondansetron HCl (Zofran) 4 mg IV Q6HP PRN PRN Reason: NAUSEA / VOMITING Stop: 02/17/20 23:36 Sodium Chloride (Normal Saline Flush) 10 ml IV BID [facility] Stop: 02/18/20 09:01 Last Admin: 01/19/20 08:20 Dose: 10 ml Documented by: Sodium Chloride (Normal Saline Flush) 10 ml IV BID [facility]HAS Stop: 02/18/20 09:01 Last Admin: 01/19/20 08:49 Dose: 10 ml Documented by: Zinc Sulfate (Zinc Sulfate) 220 mg PO DAILY [facility]HAS Stop: 02/19/20 09:01 Objective: Temp Pulse Resp BP Pulse Ox 98.5 F 108 H 18 118/71 97 01/19/20 16:00 01/19/20 16:00 01/19/20 16:00 01/19/20 16:00 01/19/20 16:00 Laboratory Data (last 24 hrs) 01/18/20 20:00: PT 12.9 H, INR 1.10, APTT 31.4 01/18/20 20:00: WBC 17.1 H D, Hgb 10.7 L, Hct 33.7 L, Plt Count 611 H 01/18/20 20:00: Sodium 161 H*, Potassium 3.4 L, BUN 75 H, Creatinine 1.67 H, Glucose 141 H, Total Bilirubin 0.5, AST 33, ALT 21, Alkaline Phosphatase 85, Amylase 68, Lipase 145 Assessment and plan: Covid 19 positive Leukocytosis Fevers resolved UTI AMS Recommend to continue Zithromax and Cefepime for total of 6 days Recommend to continue vitamin C & D and zinc Blood cultures positive for gram + cocci in clusters, Recommend to continue Vancomycin until sensitivity results CSF and urine cultures pending Will continue to monitor Thank you for consult Patient discussed with Dr. Sanford
[2020-01-19] MEDS: CARBAMAZEPINE PO SCH (21:00)
[2020-01-19] MEDS: OLANZapine 10 MG TABLET PO SCH ×2 (21:00→21:57)
[2020-01-19] MEDS: ACETAMINOPHEN 500 MG TAB PO PRN (21:55)
[2020-01-19] MEDS: ATORVASTATIN 10 MG TAB PO SCH (21:58)
[2020-01-20] MEDS: D5W 1,000 ML IV SCH ×3 (01:08→12:17)
[2020-01-20 04:53] LABS: Basophils % 0.2 % (0-1.3)
[2020-01-20 05:06] LABS: Ferritin 118.7 ng/mL (8-388)
[2020-01-20 05:08] LABS: Potassium 2.5 mmol/L (3.5-5.1)
[2020-01-20 05:12] LABS: Hematocrit 24.6 % (36.0-45.0); Lymphocytes % 8.1 % (15.3-44.8); MPV 7.9 fL (7.6-11.3); RBC Red Blood Cell Count 2.65 M/uL (3.86-4.86)
[2020-01-20] MEDS: KCL 20 MEQ/100 mL IVPB 20 MEQ/100 ML BAG IV SCH ×2 (05:47→07:48)
[2020-01-20] MEDS: LEVOTHYROXINE SOD 0.05 MG TABLET PO SCH (05:47)
[2020-01-20 07:47] LABS: Anisocytosis 1+; Blood Morphology Comment NOTED (NOT SEEN); Platelet Estimate ADEQ; Poikilocytosis 1+
[2020-01-20] MEDS: MEGESTROL 400 MG/10 ML UCUP PO SCH ×3 (07:47→21:00)
[2020-01-20] MEDS: CEFEPIME/SWI 1gm 10 ML IV SCH (07:47)
[2020-01-20] MEDS: ASCORBIC ACID 500 MG TABLET PO SCH ×2 (07:47→09:00)
[2020-01-20] MEDS: VITAMIN D 1000 UNIT TAB PO SCH ×2 (07:48→09:00)
[2020-01-20] MEDS: ASPIRIN 81 MG CHEWABLE TABLET PO SCH ×2 (07:48→09:00)
[2020-01-20] MEDS: AZITHROMYCIN 250 MG TAB PO SCH ×2 (07:48→09:00)
[2020-01-20] MEDS: FAMOTIDINE 20 MG TAB PO SCH ×2 (07:48→09:00)
[2020-01-20] MEDS: HEPARIN 5000 UNIT/ML 1 ML VIAL SQ SCH (07:48)
[2020-01-20] MEDS: ZINC SULFATE 220 MG CAP PO SCH ×2 (07:48→09:00)
[2020-01-20] MEDS: CARBAMAZEPINE PO SCH ×2 (09:00→21:00)
[2020-01-20] MEDS ORDERED: POTASSIUM PHOS IN 0.9 % NACL 15 MMOL/250 ML BAG IV ONE ×3 (10:00→18:00)
--- NOTE | 2020-01-20 11:25 | P.CNS ---
Date of Consult: 01/20/20 Reason for Consult: GARCIA VIRUS POSITIVE HYPOXEMIA Chief Complaint: Altered mental status History of Present Illness: Patient is 69 years of age long term resident admitted from the emergency room with hypernatremia altered mental status hypokalemia she has also: All virus positive hypokalemia nonverbal COPD dementia patient did undergo lumbar puncture Allergies No Known Allergies Allergy (Verified 01/19/20 00:10) Home Medications: Aspirin 81 mg PO DAILY 01/19/20 Atorvastatin Calcium 10 mg PO BEDTIME 01/19/20 Carbamazepine [Tegretol Xr] 1 tab PO BID 01/19/20 Hydrocortisone Cream [Hydrocortisone 1% Cream] 1 appl TOP BID 01/19/20 Megestrol Acetate 400 mg PO BID 01/19/20 Metformin ER [Glucophage ER] 500 mg PO BID 01/19/20 OLANZapine [Zyprexa*] 1 tab PO BEDTIME 01/19/20 Omeprazole 20 mg PO DAILY 01/19/20 - Past Medical/Surgical History Diabetic: No -: CVA -: Dysphagia -: COPD -: Ataxia -: Depression -: Dementia - Social History Smoking Status: Unknown if ever smoked Alcohol use: No CD- Drugs: No [facility] of Residence: [facility] Review of Systems is unable to be obtained Physical Examination Temp Pulse Resp BP Pulse Ox 99.9 F 86 20 141/71 H 95 01/20/20 08:00 01/20/20 08:00 01/20/20 08:00 01/20/20 08:00 01/20/20 08:00 General: Other (Exam deferred) - Problems (1) Hypernatremia Current Visit: Yes Status: Acute Plan: Continue with IV fluids sodium is declining thyroid function tests is normal correct hypokalemia chest x-rays clear appears to be hypoxic will continue to monitor room-air pulse ox most likely a problem is from urosepsis urine analysis shows 4+ gram-negative rods continue with cefepime blood cultures most likely contaminant Dc Zithromax lumbar puncture negative for infection
--- NOTE | 2020-01-20 11:47 | PN ---
Date of Progress Note: 01/20/2020 Subjective: Patient was evaluated using telemedicine based on the current COVID-19 outbreak, current CDC, [facility] guidance to social distancing and self- isolation of at-risk persons. Telemedicine was used. Patients next of kin and decision maker was offered the tele health services as patient is demented and does not make any decisions. All the risks, benefits, and alternatives through this virtual video visit were explained to the decision maker and they consented to this modality of care. Visit was carried out using the secure line. No technical issues experienced. Level of care equivalent to in-person care was achieved. Patient continues to moan, demented female, at her baseline according to the sister. Spoke with the sister at length. Awaiting call back today for consent for convalescent plasma usage, which will have to be ordered once consent is given by the sisters. Medications List: Reviewed. Physical Examination: Vital Signs: Temperature 99.9, heart rate 86, blood pressure 141/71, respirations 20, O2 95% on 3 L via nasal cannula. Last temperature spike was 7 p.m. yesterday at 100.6. General: Elderly demented female, moaning, frail, cachectic. Respiratory: Does not appear to be using any accessory muscles. Does not appear to be in respiratory distress. Does have nasal cannula in place. Neurologic: Nonfocal. Patient is nonverbal, demented, not oriented. Laboratory Data: Sodium 155, potassium 2.5, chloride 124, CO2 of 25, BUN 39, creatinine 0.67, glucose 139, calcium 8, phosphorus 1, ferritin 118.7. WBC 12.3, H and H 7.9 and 24.6, platelets 366, neutrophils 87%. CSF culture shows no growth to date. Urine culture growing out 4+ gram-negative rods. Blood culture, 1/4 bottles growing out gram-positive cocci in clusters, which is staph coagulase negative, likely skin contaminant. Assessment: 1. Sepsis. Patient now afebrile for over 12 hours. Blood pressure is stable, somewhat tachycardic, likely secondary to urinary tract infection and COVID. Patient is on broad-spectrum IV antibiotics. Blood culture shows 1 bottle with skin contaminant, likely urine cultures growing out 4+ gram-negative rods. We will await ID and sensitivity. Continue azithromycin. We will discontinue vancomycin as blood cultures showed no growth except for staphylococcus coagulase negative, which is likely skin contaminant and it is on 1/4 bottles. Appreciate Infectious Disease input. 2. Acute cystitis without hematuria secondary to gram-negative rods. We will follow up on ID and sensitivity. Continue cefepime. 3. Severe hypernatremia, improved. We will continue with D5W. We will decrease rate. Patient has some edema. Appreciate Nephrology input. 4. Hypophosphatemia. We will replace and monitor. 5. Hypokalemia. We will replace and monitor. 6. Metabolic encephalopathy, may be her baseline, likely worsened with sepsis and urinary tract infection. 7. Acute kidney injury. Appreciate Nephrology input. Creatinine is normalized. We will adjust IV fluids. 8. History of cerebrovascular accident. 9. Oropharyngeal dysphagia. Patient not tolerating any diet. Not able to take crushed meds, may need to place NG tube. 10. Dementia, Alzheimer's type with behavioral disturbance. 11. Severe protein-calorie malnutrition. 12. Elevated troponin, likely due to sepsis. 13. COVID-19. Continue azithromycin. Awaiting consent from the sister for convalescent plasma if available. Remdesivir is not available at this facility. 14. Deep vein thrombosis prophylaxis with heparin. We will adjust as kidney function is improved and then switch over to Lovenox. 15. Anemia. Hemoglobin is dropped from 10.7 to 7.9, may be partly dilutional. No active bleeding. We will continue to monitor and transfuse for hemoglobin less than 7. Plan: We will try to give convalescent plasma once consent obtained and available. Follow up on urine cultures. Patient was seen virtually. Physical exam completed using telemedicine with assistance from the bedside RN. Assessment and plan based on chart review, HPI, physical exam findings gathered during this encounter. Every effort has been made to make this encounter comprehensive to the best of our abilities. NASH Voice ID: [id number] Report ID: [id number] SYLVIE
[2020-01-20] MEDS ORDERED: D5W 1,000 ML IV SCH (13:07)
--- NOTE | 2020-01-20 13:55 | P.PN ---
Subjective Date of Service: 01/20/20 Chief Complaint: Altered mental status Subjective pt is apoor historian, HX obtained from chart 69-year-old assisted resident with a history of CVA, dysphagia, COPD pt was sent from SNF for fever in ER Cr 1.6, NA 161 today Na down to 155, K 2.5 , phos 1.0 IVF rate reduced to edema concern if edema worsen then will add lasix and cont IVF if K cont to drop then will add 40meq KCL to IVF Phos replaced Physical Examination: General: awake, not oriented neck: supple, no elevated JVD Heart: RRR, normal S1,2 no murmur or rub chest CTAB, no rales or whezes Abdomen: soft , NT ext : mild swelling A/P NATHANIEL due to dehydration resolved pending renal US COVID 19 cont supportive care plan for possible convalescent plasm hypernatremia and hyperchloremia due to dehydration cont D5w sepsis due to UTI and COVID Bcx: 09/09 staph coagulase negative , likely contamination UTI cont abx Hypokalemia due to poor oral intake replace prn if K cont to drop then will add 40meq KCL to IVF hypothyrodism on synthroid total time spent 35min Allergies No Known Allergies Allergy (Verified 01/19/20 00:10) Home Medications: Aspirin 81 mg PO DAILY 01/19/20 Atorvastatin Calcium 10 mg PO BEDTIME 01/19/20 Carbamazepine [Tegretol Xr] 1 tab PO BID 01/19/20 Hydrocortisone Cream [Hydrocortisone 1% Cream] 1 appl TOP BID 01/19/20 Megestrol Acetate 400 mg PO BID 01/19/20 Metformin ER [Glucophage ER] 500 mg PO BID 01/19/20 OLANZapine [Zyprexa*] 1 tab PO BEDTIME 01/19/20 Omeprazole 20 mg PO DAILY 01/19/20 - Past Medical/Surgical History Diabetic: No -: CVA -: Dysphagia -: COPD -: Ataxia -: Depression -: Dementia - Social History Smoking Status: Unknown if ever smoked Alcohol use: No CD- Drugs: No Place of Residence: [facility] Physical Examination Physical Examination - Vital Signs Temperature: 98.3 F Blood Pressure: 119/62 Pulse: 93 Respirations: 20 Pulse Ox (%): 95 - Studies Microbiology Data (last 24 hrs): 01/18/20 21:30 Cerebral Spinal Fluid Gram Stain - Final 01/18/20 20:01 Blood - Blood Blood Culture Gram Stain - Final
[2020-01-20] MEDS ORDERED: VANCOMYCIN 500 MG in NA CHLORIDE 0.9% 100 ML IVPB SCH (17:00)
[2020-01-20 17:20] LABS: Phosphorus 1.6 mg/dL (2.5-4.9)
[2020-01-20] MEDS ORDERED: D5W 1,000 ML with POTASSIUM CL 20 MEQ IV SCH ×2 (18:00)
[2020-01-20] MEDS ORDERED: POTASSIUM CL 40 MEQ in NA CHLORIDE 0.9% 500 ML IV ONE (19:00)
[2020-01-20] MEDS: D5W 1,000 ML with POTASSIUM CL 40 MEQ IV SCH ×2 (19:06)
[2020-01-20] MEDS: ATORVASTATIN 10 MG TAB PO SCH (21:00)
[2020-01-20] MEDS: OLANZapine 10 MG TABLET PO SCH (21:00)
[2020-01-21 04:45] LABS: Absolute Lymphocytes (CBC) 1.1 K/uL (0.7-4.9); Basophils % 0.3 % (0-1.3); Hematocrit 25.6 % (36.0-45.0); Lymphocytes % 6.8 % (15.3-44.8); MPV 8.4 fL (7.6-11.3); RBC Red Blood Cell Count 2.79 M/uL (3.86-4.86)
[2020-01-21 05:03] LABS: ALT/SGPT 12 U/L (12-78); AST/SGOT 15 U/L (15-37); Albumin 1.6 g/dL (3.4-5.0); Alkaline Phosphatase 62 U/L (45-117); BUN Blood Urea Nitrogen 20 mg/dL (7-18); Bicarbonate 23 mmol/L (21-32); Bilirubin Total 0.3 mg/dL (0.2-1.0); Glucose Level 102 mg/dL (74-106); Phosphorus 1.5 mg/dL (2.5-4.9); Potassium 3.6 mmol/L (3.5-5.1); Protein, Total 5.4 g/dL (6.4-8.2); Sodium Level 148 mmol/L (136-145)
[2020-01-21] MEDS: LEVOTHYROXINE SOD 0.05 MG TABLET PO SCH (05:12)
[2020-01-21] MEDS ORDERED: POTASSIUM PHOS IN 0.9 % NACL 15 MMOL/250 ML BAG IV ONE (08:00)
[2020-01-21] MEDS: ASCORBIC ACID 500 MG TABLET PO SCH (09:00)
[2020-01-21] MEDS ORDERED: ENOXAPARIN 40 MG/0.4 ML SQ SCH (09:00)
[2020-01-21] MEDS: FAMOTIDINE 20 MG TAB PO SCH (09:00)
[2020-01-21] MEDS: CARBAMAZEPINE PO SCH ×2 (09:00→19:49)
[2020-01-21] MEDS: VITAMIN D 1000 UNIT TAB PO SCH (09:00)
[2020-01-21] MEDS: ZINC SULFATE 220 MG CAP PO SCH (09:00)
[2020-01-21] MEDS: ASPIRIN 81 MG CHEWABLE TABLET PO SCH (09:00)
[2020-01-21] MEDS: MEGESTROL 400 MG/10 ML UCUP PO SCH ×2 (09:00→19:48)
[2020-01-21] MEDS ORDERED: AZITHROMYCIN IV 500 MG in NA CHLORIDE 0.9% 250 ML IVPB SCH (09:00)
[2020-01-21] MEDS: CEFEPIME/SWI 1gm 10 ML IV SCH (09:44)
--- NOTE | 2020-01-21 11:10 | P.PN ---
Subjective Date of Service: 01/21/20 Chief Complaint: Altered mental status Subjective: Improving (Patient is more alert or agitated not eating and drinking) Review of Systems is unable to be obtained Physical Examination - Vital Signs Temperature: 98.6 F Blood Pressure: 158/71 Pulse: 98 Respirations: 20 Pulse Ox (%): 96 - Physical Exam General: Alert, Unresponsive - Studies Microbiology Data (last 24 hrs): 01/18/20 20:30 Clean Catch Urine [place] Count - Final >100,000 CFU/ML. 01/18/20 20:30 Clean Catch Urine - Final Escherichia Coli 01/18/20 21:30 Cerebral Spinal Fluid Gram Stain - Final 01/18/20 20:01 Blood - Blood Blood Culture Gram Stain - Final Assessment & Plan - Problems (Diagnosis) (1) Hypernatremia Current Visit: Yes Status: Acute Plan: Patient is still mildly hypernatremic hypokalemia still needs to be corrected although it has improved urine culture shows E coli white count is still mildly elevated change to Rocephin continue with IV fluids patient is now afebrile saturation satisfactory
--- NOTE | 2020-01-21 13:41 | P.PN ---
Subjective Date of Service: 01/21/20 Chief Complaint: Altered mental status Subjective: New changes Subjective pt is apoor historian, HX obtained from chart 69-year-old prison resident with a history of CVA, dysphagia, COPD pt was sent from SNF for fever in ER Cr 1.6, NA 161 COVID +ve today Na improving, K wnl Cont D5W with KCL phos replaced Physical Examination: General: awake, not oriented neck: supple, no elevated JVD Heart: RRR, normal S1,2 no murmur or rub chest CTAB, no rales or whezes Abdomen: soft , NT ext : no edema A/P NATHANIEL due to dehydration resolved pending renal US COVID 19 cont supportive care plan for possible convalescent plasm hypernatremia and hyperchloremia due to dehydration cont D5w sepsis due to UTI and COVID Bcx: 09/09 staph coagulase negative , likely contamination UTI cont abx Hypokalemia due to poor oral intake resolved Cont IVF + KCL hypothyrodism on synthroid total time spent 35min Allergies No Known Allergies Allergy (Verified 01/19/20 00:10) Home Medications: Aspirin 81 mg PO DAILY 01/19/20 Atorvastatin Calcium 10 mg PO BEDTIME 01/19/20 Carbamazepine [Tegretol Xr] 1 tab PO BID 01/19/20 Hydrocortisone Cream [Hydrocortisone 1% Cream] 1 appl TOP BID 01/19/20 Megestrol Acetate 400 mg PO BID 01/19/20 Metformin ER [Glucophage ER] 500 mg PO BID 01/19/20 OLANZapine [Zyprexa*] 1 tab PO BEDTIME 01/19/20 Omeprazole 20 mg PO DAILY 01/19/20 - Past Medical/Surgical History Diabetic: No -: CVA -: Dysphagia -: COPD -: Ataxia -: Depression -: Dementia - Social History Smoking Status: Unknown if ever smoked Alcohol use: No CD- Drugs: No Place of Residence: Longterm Physical Examination Physical Examination - Vital Signs Temperature: 98.1 F Blood Pressure: 141/85 Pulse: 113 Respirations: 20 Pulse Ox (%): 95 - Studies Microbiology Data (last 24 hrs): 01/18/20 20:30 Clean Catch Urine [place] Count - Final >100,000 CFU/ML. 01/18/20 20:30 Clean Catch Urine - Final Escherichia Coli
--- NOTE | 2020-01-21 14:58 | PN ---
Date of Progress Note: 01/21/2020 Subjective: Patient still at baseline. No significant events overnight, much more awake and alert today. Patient has remained afebrile. Medications List: Reviewed. Physical Examination: Vital Signs: Temperature 99.3, heart rate 88, blood pressure 114/60, respirations 17, O2 95% on 2 L via nasal cannula. General: Awake, alert, does not follow any commands, demented elderly female, frail, cachectic. Respirations: No respiratory distress. No use of accessory muscles. Neurologic: Nonfocal. Laboratory Data: Sodium 148, potassium 3.6, chloride 118, CO2 of 23, BUN 20, creatinine 0.42, glucose 102, calcium 7.4, phosphorus 1.5, albumin 1.6. WBC 16.3, H and H 8.2/25.6, platelets 325, neutrophils 90%. Urine cultures growing out E coli, sensitive to cefepime. Blood cultures, no growth to date, does show contaminant. CSF culture, no growth to date. Assessment: A 69-year-old female with: 1. Sepsis. Patient has been afebrile for over 24 hours. Continue with broad- spectrum IV antibiotics. Urine culture growing out Escherichia coli, sensitive to cefepime. Blood cultures, no growth to date. ID on board. 2. Acute cystitis without hematuria secondary to Escherichia coli. Continue cefepime. 3. Severe hypernatremia, improving. IV fluids are discontinued due to effort to keep the patient more on the negative fluid balance due to COVID-19. 4. COVID-19 positive. Continue azithromycin. Not a candidate for convalescent plasma at this time as patient is doing well, did not have any respiratory symptoms. No acute decline. 98% on 2 L. Chest x-ray clear. Ferritin normal. Therefore, we will hold off on convalescent plasma. 5. Hypophosphatemia. We will replace and monitor. 6. Metabolic encephalopathy. Patient is back at her baseline. 7. History of cerebrovascular accident. 8. Oropharyngeal dysphagia. We will re-attempt to have patient take modified diet. [place] is an option; however, patient may end up pulling it out due to her dementia. 9. Alzheimer dementia without behavioral disturbance, at this time stable. 10. Severe protein-calorie malnutrition. Albumin is 1.6, need to supplement once taking p.o. 11. Elevated troponin, likely due to sepsis and COVID-19. 12. Anemia. We will continue to monitor. H and H back up to 8.2. Transfuse for hemoglobin less than 7. 13. Deep venous thrombosis prophylaxis. We will continue Lovenox despite low hemoglobin. There is no active bleeding. Patient is at risk for thrombosis due to COVID-19. Plan: Patient is stable from COVID-19 and sepsis standpoint; however, white blood cell count still going up slightly. On discharge if back to nursing facility once [facility] [place] accepts pt patient seen virtually. All efforts made to approximate visit to best of our abilities. information also gathered from chart. /THOMAS Voice ID: [id number] Report ID: [id number] salome MERCER
[2020-01-21] MEDS: D5W 1,000 ML with POTASSIUM CL 40 MEQ IV SCH ×2 (16:07)
[2020-01-21] MEDS: ATORVASTATIN 10 MG TAB PO SCH (19:47)
[2020-01-21] MEDS: OLANZapine 10 MG TABLET PO SCH (19:48)
[2020-01-21] MEDS ORDERED: METOPROLOL TARTRATE 5 MG/5 ML INJ IV STA (22:11)
[2020-01-21] MEDS: SCOPOLAMINE HYDROBROMIDE PATCH TD SCH (23:18)
[2020-01-22 04:27] LABS: BUN Blood Urea Nitrogen 18 mg/dL (7-18); Bicarbonate 25 mmol/L (21-32); Glucose Level 117 mg/dL (74-106); Magnesium 1.5 mg/dL (1.8-2.4); Phosphorus 1.8 mg/dL (2.5-4.9); Potassium 4.4 mmol/L (3.5-5.1); Sodium Level 143 mmol/L (136-145)
[2020-01-22] MEDS ORDERED: Magnesium Sulfate 2gm IVPB 2 G/50 ML BAG IV ONE (04:54)
[2020-01-22] MEDS: LEVOTHYROXINE SOD 0.05 MG TABLET PO SCH (05:25)
[2020-01-22] MEDS ORDERED: POTASSIUM PHOS IN 0.9 % NACL 15 MMOL/250 ML BAG IV ONE (08:00)
[2020-01-22] MEDS: CARBAMAZEPINE PO SCH ×2 (09:00→19:55)
[2020-01-22] MEDS: MEGESTROL 400 MG/10 ML UCUP PO SCH ×2 (09:00→20:21)
[2020-01-22] MEDS ORDERED: CEFTRIAXONE/SWI 1gm 1 GM/10 ML SYR IVP SCH (09:00)
[2020-01-22] MEDS: ASCORBIC ACID 500 MG TABLET PO SCH (09:05)
[2020-01-22] MEDS: VITAMIN D 1000 UNIT TAB PO SCH (09:06)
[2020-01-22] MEDS: ASPIRIN 81 MG CHEWABLE TABLET PO SCH (09:06)
[2020-01-22] MEDS: FAMOTIDINE 20 MG TAB PO SCH (09:06)
[2020-01-22] MEDS: ZINC SULFATE 220 MG CAP PO SCH (09:06)
[2020-01-22] MEDS: ENOXAPARIN 40 MG/0.4 ML SQ SCH (09:06)
[2020-01-22] MEDS: D5W 1,000 ML with POTASSIUM CL 40 MEQ IV SCH ×4 (11:48→16:25)
--- NOTE | 2020-01-22 13:54 | P.PN ---
Date of Service: 01/22/20 Subjective: Patient is a 69 year old female longterm resident who presents with altered mental status and fever. Patient found to have UTI and tested positive for covis-19 which I have been consulted for. Patient has history of CVA and is poor historian. Per nurse, patient is nonverbal but does open eyes to voice. Nurse reports patient is on 4L nasal cannula and has decreased appetite. Denies fever and diarrhea. Objective: Temp Pulse Resp BP Pulse Ox 98.5 F 108 H 18 118/71 97 01/19/20 16:00 01/19/20 16:00 01/19/20 16:00 01/19/20 16:00 01/19/20 16:00 Labs: Na 143, K 4.4, BUN 18, creat 0.43, WBC 16.3, Hgb 8.2, Hct 25.6, Plt 325 Assessment and plan: Covid 19 positive Leukocytosis Fevers resolved UTI, urine culture positive for E. Coli Zithromax and Cefepime DC by pulmonology Patient currently on Rocephin, recommend total of 7 days Recommend to continue vitamin C & D and zinc Blood cultures positive for staph coag negative, most likely from contamination CSF culture negative Will continue to monitor Patient discussed with Dr. Sanford
--- NOTE | 2020-01-22 17:03 | P.PN ---
Subjective Date of Service: 01/22/20 Chief Complaint: Altered mental status Subjective: Doing well Physical Examination - Vital Signs Temperature: 98 F Blood Pressure: 145/68 Pulse: 96 Respirations: 22 Pulse Ox (%): 95 - Physical Exam General: Alert, Demented Neck: Supple Respiratory: Clear to auscultation bilaterally, Normal air movement Cardiovascular: Normal pulses, Regular rate/rhythm Gastrointestinal: Normal bowel sounds Neurological: Normal speech, Dementia - Studies Medications List Reviewed: Yes Assessment & Plan Discharge Plan: Long-Term Plan to discharge in: 24 Hours Physician Review Additional Text: Impression: Sepsis secondary to UTI, urine culture positive for E coli Severe hypernatremia COVID 19 positive Metabolic encephalopathy related to above History of CVA Oropharyngeal dysphagia Alzheimer's dementia without behavioral disturbance Severe protein malnutrition Anemia likely of chronic disease Plan: Patient currently stable this time. White count stable. Will transition IV Rocephin to oral Bactrim. Patient stable at this time to go back to the [facility]. Await approval for the patient to go back. Discontinue IV fluids. Will review medications. Time Spent Managing Pts Care (In Minutes): 55
[2020-01-22] MEDS: SMZ./TMP. 800/160 MG TABLET PO SCH (20:20)
[2020-01-22] MEDS: ATORVASTATIN 10 MG TAB PO SCH (20:20)
[2020-01-22] MEDS: ENSURE ENLIVE 237 ML CAN PO SCH (20:22)
[2020-01-22] MEDS: OLANZapine 10 MG TABLET PO SCH (20:30)
[2020-01-22] MEDS ORDERED: OLANZapine 2.5 MG TAB ONE (20:35)
--- NOTE | 2020-01-23 02:09 | PN ---
Date of Progress Note: 01/22/2020 Chief Complaint: Elevated creatinine, hypernatremia. History: Patient was admitted to the hospital from residential because of fever and patient was sen t from SNF for fever. Creatinine in the emergency room was 1.6 and sodium 161. Patient was found to have positive COVID infection and is undergoing further evaluation for possible convalescent plasma. Patient was found to have hypernatremia, hyperchloremia and is receiving D5W. Review of Systems: Unobtainable. Physical Examination: Deferred to hospitalist. Patient has COVID infection. Laboratory Data: Hemoglobin 9.2, WBC 16.3, platelet count 325,000. Chemistry showed sodium 143, pot assium 4.4, chloride 113, CO2 of 25, BUN 18, creatinine 0.43. Magnesium 1.5. Phosphorus 1.8. Calci um 8.2. Impression And Plan: 1.Dehydration. Acute kidney injury. Renal function has improved since January 17. Creatinine improved from 1.63 to 0.43. Continue management with IV fluids. Sodium level is improving. Plan is to cano ge to IV fluids to half-normal saline. 2.Hypomagnesemia. Monitor. Magnesium replacement was given and magnesium improved to 2.3. 3.Phosphorus level is 1.8. Patient will continue phosphorus replacement. Phosphorus level improved from 1.0. ERIKA/THOMAS Voice ID: [id number] Report ID: [id number]
[2020-01-23 04:34] LABS: BUN Blood Urea Nitrogen 11 mg/dL (7-18); Bicarbonate 25 mmol/L (21-32); Glucose Level 74 mg/dL (74-106); Magnesium 1.9 mg/dL (1.8-2.4); Phosphorus 1.9 mg/dL (2.5-4.9); Sodium Level 142 mmol/L (136-145)
[2020-01-23] MEDS: LEVOTHYROXINE SOD 0.05 MG TABLET PO SCH (04:48)
[2020-01-23] MEDS: VITAMIN D 1000 UNIT TAB PO SCH (07:44)
[2020-01-23] MEDS: ZINC SULFATE 220 MG CAP PO SCH (07:45)
[2020-01-23] MEDS: ASPIRIN 81 MG CHEWABLE TABLET PO SCH (07:45)
[2020-01-23] MEDS: SMZ./TMP. 800/160 MG TABLET PO SCH (07:45)
[2020-01-23] MEDS: MEGESTROL 400 MG/10 ML UCUP PO SCH ×2 (07:46→19:49)
[2020-01-23] MEDS: FAMOTIDINE 20 MG TAB PO SCH (07:46)
[2020-01-23] MEDS: ENOXAPARIN 40 MG/0.4 ML SQ SCH (07:47)
[2020-01-23] MEDS: CARBAMAZEPINE PO SCH ×2 (07:47→19:50)
[2020-01-23] MEDS: ENSURE ENLIVE 237 ML CAN PO SCH ×2 (07:47→19:50)
[2020-01-23] MEDS: ASCORBIC ACID 500 MG TABLET PO SCH (07:52)
[2020-01-23] MEDS ORDERED: POTASSIUM PHOS IN 0.9 % NACL 15 MMOL/250 ML BAG IV ONE (08:00)
--- NOTE | 2020-01-23 09:57 | P.PN ---
Subjective Date of Service: 01/23/20 Chief Complaint: Altered mental status Subjective pt is apoor historian, HX obtained from chart 69-year-old [facility] resident with a history of CVA, dysphagia, COPD pt was sent from SNF for fever in ER Cr 1.6, NA 161 COVID +ve today off IVF Na and k wnl Phos replaced poor oral intake will cont to hold IVF discharge plan as per primary team overall guarded to poor prognosis Physical Examination: General: awake, not oriented neck: supple, no elevated JVD Heart: RRR, normal S1,2 no murmur or rub chest CTAB, no rales or whezes Abdomen: soft , NT ext : no edema A/P NATHANIEL due to dehydration resolved pending renal US COVID 19 cont supportive care plan for possible convalescent plasm hypernatremia and hyperchloremia due to dehydration cont D5w sepsis due to UTI and COVID UTI cont abx Hypokalemia , hypophosphatemia and hypomagnesemia due to poor oral intake resolved hypothyrodism on synthroid total time spent 35min Allergies No Known Allergies Allergy (Verified 01/19/20 00:10) Home Medications: Aspirin 81 mg PO DAILY 01/19/20 Atorvastatin Calcium 10 mg PO BEDTIME 01/19/20 Carbamazepine [Tegretol Xr] 1 tab PO BID 01/19/20 Hydrocortisone Cream [Hydrocortisone 1% Cream] 1 appl TOP BID 01/19/20 Megestrol Acetate 400 mg PO BID 01/19/20 Metformin ER [Glucophage ER] 500 mg PO BID 01/19/20 OLANZapine [Zyprexa*] 1 tab PO BEDTIME 01/19/20 Omeprazole 20 mg PO DAILY 01/19/20 - Past Medical/Surgical History Diabetic: No -: CVA -: Dysphagia -: COPD -: Ataxia -: Depression -: Dementia - Social History Smoking Status: Unknown if ever smoked Alcohol use: No CD- Drugs: No [facility] Physical Examination Physical Examination - Vital Signs Temperature: 97.2 F Blood Pressure: 141/82 Pulse: 83 Respirations: 16 Pulse Ox (%): 99 - Studies Microbiology Data (last 24 hrs): 01/18/20 21:30 Cerebral Spinal Fluid Gram Stain - Final 01/18/20 21:30 Cerebral Spinal Fluid Culture & Sensitivity - Final No growth. Medications List Reviewed: Yes
--- NOTE | 2020-01-23 11:14 | P.PN ---
Subjective Date of Service: 01/23/20 Chief Complaint: Altered mental status Subjective: Demented, Other (Nurses report poor nutrition noted. I was able to speak to the sister. Advanced directives address in detail. Patient is do not resuscitate. Sister has reported an understands that the patient has declined over the past 6 months.) Physical Examination - Vital Signs Temperature: 97.2 F Blood Pressure: 141/82 Pulse: 83 Respirations: 16 Pulse Ox (%): 99 - Physical Exam General: Demented Neck: Supple Respiratory: Normal air movement Cardiovascular: Regular rate/rhythm Neurological: Dementia - Studies Microbiology Data (last 24 hrs): 01/18/20 21:30 Cerebral Spinal Fluid Gram Stain - Final 01/18/20 21:30 Cerebral Spinal Fluid Culture & Sensitivity - Final No growth. Medications List Reviewed: Yes Assessment & Plan Discharge Plan: Alf Plan to discharge in: 24 Hours Physician Review Additional Text: Impression: Sepsis secondary to UTI, urine culture positive for E coli Severe hypernatremia COVID 19 positive Metabolic encephalopathy related to above History of CVA Oropharyngeal dysphagia Alzheimer's dementia without behavioral disturbance Severe protein malnutrition Anemia likely of chronic disease Plan: Sepsis secondary to UTI, urine culture positive for E coli: Will place the patient back on Rocephin as the patient has had poor oral intake. Case discussed at length with sister who makes medical decisions. Sister has reported that the patient has declined over the past 6 months. This sister un derstands her current medical problems and prior. Advanced directives were readdressed. Patient is do not resuscitate. I also discussed the possibility of hospice for the patient as the patient is not wanting to eat. We also discussed the possibility of PEG tube placement. Risks and benefits were addressed. She preferred not to have PEG tube placed at this time. Sister was agreeable to hospice at the shelter. I will have social services technician follow up with this. Will pursue hospice at shelter. Will obtain chest x-rayed today to see if patient has had some silent aspiration related to her dysphagia. White count still elevated. Will continue with comfort feeding at this time. Severe hypernatremia: Will discontinue IV fluids. Will discuss further with nephrology about the possibility of hospice. Nephrology agreed. COVID 19 positive: assisted once the patient to be retested prior to sending the patient back to the shelter. Metabolic encephalopathy related to above: This may be related to above and poor nutrition at this time. Will pursue hospice. History of CVA: Stable. Oropharyngeal dysphagia: This was discussed in detail with the sister. Patient has had poor oral intake over the last couple of days. This may be a factor. Sister preferred not to have PEG tube placed as the patient has underlying Alzheimer's dementia. Risks and benefits addressed. Will consider hospice instead. Alzheimer's dementia without behavioral disturbance: Continue with above recommendation. Severe protein malnutrition: Will pursue hospice and comfort feeding. Anemia likely of chronic disease: Will monitor this closely. Continue as above. Time Spent Managing Pts Care (In Minutes): 55
[2020-01-23] MEDS: CEFTRIAXONE/SWI 1gm 1 GM/10 ML SYR IV SCH (11:53)
[2020-01-23] MEDS: METOPROLOL TARTRATE 5 MG/5 ML INJ IV PRN (12:13)
--- NOTE | 2020-01-23 14:17 | RAD REPORT ---
EXAM DESCRIPTION: RAD - Chest Single View - 01/23/2020 2:10 pm CLINICAL HISTORY: Evaluate for Aspiration Chest pain. COMPARISON: Chest Single View dated 01/18/2020; Chest Single View dated 12/22/2019; CHEST SINGLE VIEW dated 09/19/2010; CHEST SINGLE VIEW dated 09/17/2010 FINDINGS: Portable technique limits examination quality. Lguj-ta-rvgfqygn infiltrate is present in the left base likely representing pneumonia. The heart is n ormal in size. No displaced fractures. IMPRESSION: Left lower lobe infiltrate/ pneumonia.
--- NOTE | 2020-01-23 14:58 | P.PN ---
Date of Service: 01/23/20 Subjective: Patient is a 69 year old female [facility] resident who presents with altered mental status and fever. Patient found to have UTI and tested positive for covis-19 which I have been consulted for. Patient has history of CVA and is poor historian. Patient examined through glass door. Per nurse, patient is nonverbal but does open eyes to voice. Not in any acute distress, utilizing nasal cannula. Patient still with poor appetite. Objective: Temp Pulse Resp BP Pulse Ox 97.0 F 100 H 16 157/92 H 99 01/23/20 12:00 01/23/20 12:42 01/23/20 12:00 01/23/20 12:42 01/23/20 12:00 Labs: Na 142, K 4.0, BUN 11, creat 0.31. No new CBC done since 01/20 Chest x-ray 01/22: EXAM DESCRIPTION: RAD - Chest Single View - 01/23/2020 2:10 pm CLINICAL HISTORY: Evaluate for Aspiration Chest pain. COMPARISON: Chest Single View dated 01/18/2020; Chest Single View dated 12/22/2019; CHEST SINGLE VIEW dated 09/19/2010; CHEST SINGLE VIEW dated 09/17/2010 FINDINGS: Portable technique limits examination quality. Mdki-er-bqxukghi infiltrate is present in the left base likely representing pneumonia. The heart is normal in size. No displaced fractures. IMPRESSION: Left lower lobe infiltrate/ pneumonia. Assessment and plan: Covid 19 positive Leukocytosis Fevers resolved UTI, urine culture positive for E. Coli Patient currently on Rocephin, recommend total of 7 days Recommend to continue vitamin C & D and zinc Blood cultures positive for staph coag negative, most likely from contamination CSF culture negative Patients family has discussed hospice care when patient returns to halfway Will continue to monitor Patient discussed with Dr. Sanford
[2020-01-23] MEDS: OLANZapine 10 MG TABLET PO SCH (19:49)
[2020-01-23] MEDS: ATORVASTATIN 10 MG TAB PO SCH (19:49)
[2020-01-24] MEDS ORDERED: METOPROLOL TARTRATE 5 MG/5 ML INJ IV ONE
[2020-01-24] MEDS: METOPROLOL TARTRATE 5 MG/5 ML INJ IV PRN ×2 (00:12→05:12)
[2020-01-24 04:13] LABS: BUN Blood Urea Nitrogen 15 mg/dL (7-18); Bicarbonate 25 mmol/L (21-32); Glucose Level 87 mg/dL (74-106); Magnesium 1.8 mg/dL (1.8-2.4); Phosphorus 1.9 mg/dL (2.5-4.9); Potassium 4.2 mmol/L (3.5-5.1); Sodium Level 145 mmol/L (136-145)
[2020-01-24] MEDS ORDERED: MAGNESIUM SULFATE 1 gm IVPB 1 GM/100 ML BAG IV ONE (05:09)
[2020-01-24] MEDS: ACETAMINOPHEN 650MG/RECT SUPP PR PRN (05:12)
[2020-01-24] MEDS: LEVOTHYROXINE SOD 0.05 MG TABLET PO SCH (05:14)
[2020-01-24] MEDS: POTASS/SODIUM PHOSPHATE 1 PKT POWD.PACK PO SCH ×3 (06:05→08:30)
[2020-01-24] MEDS: ENOXAPARIN 40 MG/0.4 ML SQ SCH (07:34)
[2020-01-24] MEDS: CEFTRIAXONE/SWI 1gm 1 GM/10 ML SYR IV SCH (07:34)
[2020-01-24] MEDS: FAMOTIDINE 20 MG TAB PO SCH (07:35)
[2020-01-24] MEDS: ZINC SULFATE 220 MG CAP PO SCH (07:35)
[2020-01-24] MEDS: ASCORBIC ACID 500 MG TABLET PO SCH (07:35)
[2020-01-24] MEDS: SCOPOLAMINE HYDROBROMIDE PATCH TD SCH (07:35)
[2020-01-24] MEDS: ASPIRIN 81 MG CHEWABLE TABLET PO SCH (07:35)
[2020-01-24] MEDS: VITAMIN D 1000 UNIT TAB PO SCH (07:35)
[2020-01-24] MEDS: ENSURE ENLIVE 237 ML CAN PO SCH ×2 (07:36→20:55)
[2020-01-24] MEDS: CARBAMAZEPINE PO SCH ×2 (07:36→20:55)
[2020-01-24] MEDS: MEGESTROL 400 MG/10 ML UCUP PO SCH (08:15)
[2020-01-24] MEDS ORDERED: D5W 1,000 ML IV SCH (11:00)
[2020-01-24] MEDS ORDERED: POTASSIUM PHOS IN 0.9 % NACL 15 MMOL/250 ML BAG IV ONE (12:52)
--- NOTE | 2020-01-24 14:37 | P.PN ---
Date of Service: 01/24/20 Subjective: Patient is a 69 [facility] resident who presents with altered mental status and fever. Patient found to have UTI and tested positive for covis-19 which I have been consulted for. Patient has history of CVA and is poor historian. Patient examined through glass door. Per nurse, patient is nonverbal but does open eyes to voice. Not in any acute distress,weaned off nasal cannula. Patient still with poor appetite. Objective: Temp Pulse Resp BP Pulse Ox 98.2 F 109 H 18 150/71 H 95 01/24/20 12:00 01/24/20 12:00 01/24/20 12:00 01/24/20 12:00 01/24/20 12:00 Labs: Na 145, K 4.2, BUN 15, creat 0.43. No new CBC done since 01/20 Chest x-ray 01/22: EXAM DESCRIPTION: RAD - Chest Single View - 01/23/2020 2:10 pm CLINICAL HISTORY: Evaluate for Aspiration Chest pain. COMPARISON: Chest Single View dated 01/18/2020; Chest Single View dated 12/22/2019; CHEST SINGLE VIEW dated 09/19/2010; CHEST SINGLE VIEW dated 09/17/2010 FINDINGS: Portable technique limits examination quality. Yokx-xm-dgsmbcxt infiltrate is present in the left base likely representing pneumonia. The heart is normal in size. No displaced fractures. IMPRESSION: Left lower lobe infiltrate/ pneumonia. Assessment and plan: 01/17 Covid 19 positive, repeat covid testing done 01/22 positive Leukocytosis Fevers resolved UTI, urine culture positive for E. Coli Continue current treatment Recommend to continue vitamin C & D and zinc Blood cultures positive for staph coag negative, most likely from contamination CSF culture negative Patients awaiting [facility] to [facility] Will continue to monitor Patient discussed with Dr. Sanford
--- NOTE | 2020-01-24 15:44 | P.PN ---
Subjective Date of Service: 01/24/20 Chief Complaint: Altered mental status Subjective: Other (Due to patient having COVID, exam was done visually through the window up the door. Patient appears stable at this time. Oxygen saturations stable. Nurses report no significant change in status.) Physical Examination - Vital Signs Temperature: 98.2 F Blood Pressure: 150/71 Pulse: 109 Respirations: 18 Pulse Ox (%): 95 - Physical Exam General: Other (Patient is clinical status stable at this time. Patient was visualize through the window. Heart rate stable. Oxygen saturations within normal range on nasal cannula. Patient does not appear distressed.) - Studies Microbiology Data (last 24 hrs): 01/18/20 20:01 Blood - Blood Aerobic Blood Culture - Final 01/18/20 20:01 Blood - Blood Blood Culture Gram Stain - Final 01/18/20 20:01 Blood - Blood Anaerobic Blood Culture - Final No growth in 5 days. 01/18/20 20:00 Blood - Blood Aerobic Blood Culture - Final No growth in 5 days. 01/18/20 20:00 Blood - Blood Anaerobic Blood Culture - Final No growth in 5 days. Medications List Reviewed: Yes Assessment & Plan Discharge Plan: Assisted Plan to discharge in: 24 Hours Physician Review Additional Text: Impression: Sepsis secondary to UTI, urine culture positive for E coli Severe hypernatremia COVID 19 positive Metabolic encephalopathy related to above History of CVA Oropharyngeal dysphagia Alzheimer's dementia without behavioral disturbance Severe protein malnutrition Anemia likely of chronic disease Plan: Sepsis secondary to UTI, urine culture positive for E coli: Will transition to oral antibiotic therapy. Case discussed yesterday at length with sister who makes medical decisions. Sister has reported that the patient has declined over the past 6 months. This sister understands her current medical problems and prior. Patient is do not resuscitate. Family has agreed to hospice. No PEG tube at this time. Continue with comfort feeding. Continue with current medication at this time. Patient was retested for COVID. She is again positive. [facility]. Social work working send her to another facility that will take positive COVID patient's. Patient will go to facility with hospice in place. Will also need to discuss with hospice is well. Anticipate patient going to another facility with hospice in place. Severe hypernatremia: Will discontinue IV fluids. Nephrology agreed. COVID 19 positive: Continue as above Metabolic encephalopathy related to above: This may be related to above and poor nutrition at this time. Will pursue hospice. History of CVA: Stable. Oropharyngeal dysphagia: This was discussed in detail with the sister. Patient has had poor oral intake over the last couple of days. This may be a factor. Sister preferred not to have PEG tube placed as the patient has underlying Alzheimer's dementia. Risks and benefits addressed. Will consider hospice instead. Alzheimer's dementia without behavioral disturbance: Continue with above recommendation. Severe protein malnutrition: Will pursue hospice and comfort feeding. Anemia likely of chronic disease: Will monitor this closely. Continue as above. Time Spent Managing Pts Care (In Minutes): 55
--- NOTE | 2020-01-24 16:36 | PN ---
Date of Progress Note: 01/24/2020 This visit has been done by video as patient COVID positive and on isolation. Patient was admitted w ith acute kidney injury secondary to prerenal. After hydration, kidney function has been improving. Physical Examination: Vital Signs: When I saw the patient, blood pressure 150/70, pulse of 109, afebrile. Chest: Clear to auscultation. Heart: S1, S2. Regular. Systolic murmur. Abdomen: Soft, nontender. Extremities: Plus edema. Neuro: Patient is sleepy. No focality. This exam has been done by the nurse under my supervision and instruction. Urine Output: The patient had urine output of 650. Laboratory Data: WBC 16.3, H and H 8.2 and 25.6, platelets 325. Chest x-ray, mild congestion, no ca rdiomegaly. Sodium 145, potassium 4.2, bicarb 25, BUN 15, creatinine 0.4, calcium 8.1, phosphorus 1. 9, magnesium 1.8. Current Medications: The patient on include: 1.Ceftriaxone. 2.Megestrol. 3.Metoprolol. 4.Ensure. 5.Pepcid. 6.Levothyroxine. 7.Magnesium oxide. Assessment And Plan: 1.Acute kidney injury secondary to prerenal, recovered, resolved. Looks to me on the normal volume to the wet side. I will keep holding normal saline, and we will monitor the patient. 2.Hypernatremia secondary to poor intake. We will start the patient on D5 at 50 per hour. 3.Hypokalemia, hypomagnesemia, hypophosphatemia. We will supplement. 4.Deconditioning. Continue physical therapy and occupational therapy. 5.Failure to thrive. Continue supportive care. MA/MODL Voice ID: [id number] Report ID: [id number]
[2020-01-24] MEDS: OLANZapine 10 MG TABLET PO SCH (20:52)
[2020-01-24] MEDS: ATORVASTATIN 10 MG TAB PO SCH (20:53)
[2020-01-24] MEDS: SMZ./TMP. 800/160 MG TABLET PO SCH (20:53)
[2020-01-24] MEDS: ACETAMINOPHEN 500 MG TAB PO PRN (20:54)
[2020-01-24] MEDS ORDERED: SMZ./TMP. 800/160 MG TABLET PO SCH (21:00)
[2020-01-25] MEDS: ACETAMINOPHEN 650MG/RECT SUPP PR PRN (05:30)
[2020-01-25] MEDS: LEVOTHYROXINE SOD 0.05 MG TABLET PO SCH (05:30)
[2020-01-25] MEDS: SMZ./TMP. 800/160 MG TABLET PO SCH ×2 (06:54→20:04)
[2020-01-25] MEDS: FAMOTIDINE 20 MG TAB PO SCH (06:54)
[2020-01-25] MEDS: ASCORBIC ACID 500 MG TABLET PO SCH (06:54)
[2020-01-25] MEDS: VITAMIN D 1000 UNIT TAB PO SCH (06:54)
[2020-01-25] MEDS: ZINC SULFATE 220 MG CAP PO SCH (06:54)
[2020-01-25] MEDS: ENSURE ENLIVE 237 ML CAN PO SCH ×2 (06:55→20:05)
[2020-01-25] MEDS: ENOXAPARIN 40 MG/0.4 ML SQ SCH (06:55)
[2020-01-25] MEDS: CARBAMAZEPINE PO SCH ×2 (06:55→21:00)
[2020-01-25] MEDS: ASPIRIN 81 MG CHEWABLE TABLET PO SCH (06:55)
[2020-01-25] MEDS ORDERED: FUROSEMIDE 20 MG/ 2ML VIAL IV ONE (12:32)
--- NOTE | 2020-01-25 13:56 | P.PN ---
Subjective Date of Service: 01/25/20 Chief Complaint: Altered mental status Subjective: Doing well (No changes.) Physical Examination - Vital Signs Temperature: 98.2 F Blood Pressure: 138/78 Pulse: 90 Respirations: 19 Pulse Ox (%): 96 - Physical Exam General: Other (Visual exam done. Patient from a distance appears stable. She is resting in bed. Oxygen saturations stable.) - Studies Medications List Reviewed: Yes Assessment & Plan Discharge Plan: Care Home Plan to discharge in: 24 Hours Physician Review Additional Text: Impression: Sepsis secondary to UTI, urine culture positive for E coli Severe hypernatremia COVID 19 positive Metabolic encephalopathy related to above History of CVA Oropharyngeal dysphagia Alzheimer's dementia without behavioral disturbance Severe protein malnutrition Anemia likely of chronic disease Plan: Sepsis secondary to UTI, urine culture positive for E coli: Patient currently on oral antibiotic therapy. Patient was retested for COVID. She is again positive. Current [facility] will not be able to take her back. Social work working send her to another facility that will take positive COVID patient's. Will discuss with sister who makes decisions to see if this okay to send her to a sister facility or another facility in the area that takes positive patient's. Patient will go to facility with hospice in place. Will also need to discuss with hospice is well. Anticipate patient going to another facility with hospice in place. Severe hypernatremia: Will discontinue IV fluids. Nephrology agreed. COVID 19 positive: Continue as above Metabolic encephalopathy related to above: This may be related to above and poor nutrition at this time. Will pursue hospice. History of CVA: Stable. Oropharyngeal dysphagia: This was discussed in detail with the sister. Patient has had poor oral intake over the last couple of days. This may be a factor. Sister preferred not to have PEG tube placed as the patient has underlying Alzheimer's dementia. Risks and benefits addressed. Will consider hospice instead. Alzheimer's dementia without behavioral disturbance: Continue with above recommendation. Severe protein malnutrition: Will pursue hospice and comfort feeding. Anemia likely of chronic disease: Will monitor this closely. Continue as above. Time Spent Managing Pts Care (In Minutes): 55
--- NOTE | 2020-01-25 15:32 | P.PN ---
Date of Service: 01/25/20 Subjective: Patient is a 69 [facility] female [facility] resident who presents with altered mental status and fever. Patient found to have UTI and tested positive for covis-19 which I have been consulted for. Patient has history of CVA and is poor historian. Patient examined through glass door. Per nurse, patient is more alert and v erbal. Not in any acute distress, not requiring supplemental oxygen. Patient still with poor appetite. Objective: Temp Pulse Resp BP Pulse Ox 97.4 F 104 H 18 152/76 H 99 01/25/20 15:03 01/25/20 15:03 01/25/20 15:03 01/25/20 15:03 01/25/20 15:03 Labs: No new labs available Chest x-ray 01/22: EXAM DESCRIPTION: RAD - Chest Single View - 01/23/2020 2:10 pm CLINICAL HISTORY: Evaluate for Aspiration Chest pain. COMPARISON: Chest Single View dated 01/18/2020; Chest Single View dated 12/22/2019; CHEST SINGLE VIEW dated 09/19/2010; CHEST SINGLE VIEW dated 09/17/2010 FINDINGS: Portable technique limits examination quality. Bmlc-xo-mqqkahfi infiltrate is present in the left base likely representing pneumonia. The heart is normal in size. No displaced fractures. IMPRESSION: Left lower lobe infiltrate/ pneumonia. Assessment and plan: 01/17 Covid 19 positive, repeat covid testing done 01/22 positive Leukocytosis Fevers resolved UTI, urine culture positive for E. Coli Continue current treatment Recommend to continue vitamin C & D and zinc Blood cultures positive for staph coag negative, most likely from contamination CSF culture negative Patients awaiting approval to return to snf Will continue to monitor Patient discussed with Dr. Sanford
--- NOTE | 2020-01-25 18:08 | PN ---
Date of Progress Note: 01/25/2020 Patient was admitted with COVID pneumonia, acute kidney injury secondary to prerenal. After hydratio n, kidney function has been improved. Physical Examination: Vital Signs: When I saw the patient, blood pressure 138/73, pulse of 90, afebrile. Chest: Clear to auscultation. Heart: S1, S2. Regular. Abdomen: Soft, nontender. Extremities: Trace edema. Neuro: Patient moving 4 extremities. No focality. This exam has been done by the help of the nurse . All the interview has been done by the video as patient in isolation for COVID positive. Laboratory Data: Sodium 145, potassium 4.2, bicarb 25, BUN 15, creatinine 0.4, calcium 8.1, phosphor us 1.9, magnesium 1.8. Current Medications: The patient on include Bactrim, aspirin, Lovenox, metoprolol, atorvastatin, zin c sulfate. Assessment And Plan: 1.Acute kidney injury secondary to prerenal, recovered, resolved. 2.Hypomagnesemia, hypophosphatemia. We will supplement. 3.Urinary tract infection secondary to Escherichia coli. Continue Bactrim. We will adjust the dosa ge. 4.Hypernatremia. I am going to give the patient single dose of Lasix. 5.Edema. Patient is going to receive single dose of Lasix. BILL/THOMAS Voice ID: [id number] Report ID: [id number]
[2020-01-25] MEDS: ATORVASTATIN 10 MG TAB PO SCH (20:04)
[2020-01-25] MEDS: OLANZapine 10 MG TABLET PO SCH (20:05)
[2020-01-26] MEDS: LEVOTHYROXINE SOD 0.05 MG TABLET PO SCH (05:35)
[2020-01-26 06:31] LABS: Albumin 1.8 g/dL (3.4-5.0); BUN Blood Urea Nitrogen 11 mg/dL (7-18); Bicarbonate 25 mmol/L (21-32); Glucose Level 104 mg/dL (74-106); Magnesium 1.7 mg/dL (1.8-2.4); Phosphorus 2.5 mg/dL (2.5-4.9); Potassium 3.6 mmol/L (3.5-5.1); Sodium Level 141 mmol/L (136-145)
[2020-01-26] MEDS ORDERED: MAGNESIUM SULFATE 1 gm IVPB 1 GM/100 ML BAG IV ONE (08:00)
[2020-01-26] MEDS: POTASSIUM 25 MEQ EFFERV TAB PO ONE ×2 (08:00→08:02)
[2020-01-26] MEDS: FAMOTIDINE 20 MG TAB PO SCH (08:01)
[2020-01-26] MEDS: ENOXAPARIN 40 MG/0.4 ML SQ SCH (08:01)
[2020-01-26] MEDS: ASCORBIC ACID 500 MG TABLET PO SCH (08:01)
[2020-01-26] MEDS: SMZ./TMP. 800/160 MG TABLET PO SCH ×2 (08:02→19:49)
[2020-01-26] MEDS: ENSURE ENLIVE 237 ML CAN PO SCH ×2 (08:02→19:49)
[2020-01-26] MEDS: CARBAMAZEPINE PO SCH ×2 (08:02→19:49)
[2020-01-26] MEDS: ASPIRIN 81 MG CHEWABLE TABLET PO SCH (08:02)
[2020-01-26] MEDS: VITAMIN D 1000 UNIT TAB PO SCH (08:02)
[2020-01-26] MEDS: ZINC SULFATE 220 MG CAP PO SCH (08:02)
[2020-01-26] MEDS ORDERED: KCL 20 MEQ/100 mL IVPB 20 MEQ/100 ML BAG IV SCH (09:00)
[2020-01-26] MEDS: ACETAMINOPHEN 650MG/RECT SUPP PR PRN (10:08)
[2020-01-26] MEDS ORDERED: FUROSEMIDE 20 MG/ 2ML VIAL IV ONE (10:12)
--- NOTE | 2020-01-26 12:02 | P.PN ---
Subjective Date of Service: 01/26/20 Chief Complaint: Altered mental status examination deferred to hospitalist due to COVID 19 regulations Subjective pt is a poor historian, HX obtained from chart 69[facility]-old [facility] resident with a history of CVA, dysphagia, COPD pt was sent from SNF for fever in ER Cr 1.6, NA 161 COVID +ve today edema, will give lasix electrolytes wnl Physical Examination: examination deferred to hospitalist due to COVID 19 regulations A/P NATHANIEL due to dehydration resolved COVID 19 cont supportive care plan for possible convalescent plasm hypernatremia and hyperchloremia due to dehydration cont D5w sepsis due to UTI and COVID UTI cont abx Hypokalemia , hypophosphatemia and hypomagnesemia due to poor oral intake resolved hypothyrodism on synthroid total time spent 35min Allergies No Known Allergies Allergy (Verified 01/19/20 00:10) Home Medications: Aspirin 81 mg PO DAILY 01/19/20 Atorvastatin Calcium 10 mg PO BEDTIME 01/19/20 Carbamazepine [Tegretol Xr] 1 tab PO BID 01/19/20 Hydrocortisone Cream [Hydrocortisone 1% Cream] 1 appl TOP BID 01/19/20 Megestrol Acetate 400 mg PO BID 01/19/20 Metformin ER [Glucophage ER] 500 mg PO BID 01/19/20 OLANZapine [Zyprexa*] 1 tab PO BEDTIME 01/19/20 Omeprazole 20 mg PO DAILY 01/19/20 - Past Medical/Surgical History Diabetic: No -: CVA -: Dysphagia -: COPD -: Ataxia -: Depression -: Dementia - Social History Smoking Status: Unknown if ever smoked Alcohol use: No CD- Drugs: No Place of Residence: [facility] Physical Examination Physical Examination - Vital Signs Temperature: 99.6 F Blood Pressure: 166/77 Pulse: 112 Respirations: 19 Pulse Ox (%): 96 - Studies Medications List Reviewed: Yes
--- NOTE | 2020-01-26 13:42 | P.PN ---
Date of Service: 01/26/20 Subjective: Patient is a 69 year old female intermediate resident who presents with altered mental status and fever. Patient found to have UTI and tested positive for covis-19 which I have been consulted for. Patient has history of CVA and is poor historian. Patient examined through glass door. Per nurse, patient is more alert and v erbal. Not in any acute distress, not requiring supplemental oxygen. Patient still with poor appetite. No new changes in past 24 hours Objective: Temp Pulse Resp BP Pulse Ox 99.6 F 112 H 19 166/77 H 96 01/26/20 12:02 01/26/20 12:02 01/26/20 12:02 01/26/20 12:02 01/26/20 12:02 Labs: Na 141. K 3.6, BUN 11, Creat 0.44 Chest x-ray 01/22: EXAM DESCRIPTION: RAD - Chest Single View - 01/23/2020 2:10 pm CLINICAL HISTORY: Evaluate for Aspiration Chest pain. COMPARISON: Chest Single View dated 01/18/2020; Chest Single View dated 12/22/2019; CHEST SINGLE VIEW dated 09/19/2010; CHEST SINGLE VIEW dated 09/17/2010 FINDINGS: Portable technique limits examination quality. Yyqd-mn-hvadkjrh infiltrate is present in the left base likely representing pneumonia. The heart is normal in size. No displaced fractures. IMPRESSION: Left lower lobe infiltrate/ pneumonia. Assessment and plan: 01/17 Covid 19 positive, repeat covid testing done 01/22 positive Leukocytosis, no new CBC Fevers resolved UTI, urine culture positive for E. Coli Continue current treatment Recommend to continue vitamin C & D and zinc Blood cultures positive for staph coag negative, most likely from contamination CSF culture negative Patients awaiting approval to return to intermediate Will continue to monitor Patient discussed with Dr. Sanford
[2020-01-26] MEDS: METOPROLOL TARTRATE 5 MG/5 ML INJ IV PRN (16:40)
--- NOTE | 2020-01-26 16:54 | P.PN ---
Subjective Date of Service: 01/26/20 Chief Complaint: Altered mental status Subjective: Other (Patient stable this time.) Physical Examination - Vital Signs Temperature: 97.5 F Blood Pressure: 162/78 Pulse: 103 Respirations: 19 Pulse Ox (%): 99 - Physical Exam General: Other (Patient seen from window. Patient stable at this time. No complaints noted. Blood pressure slightly elevated today.) - Studies Medications List Reviewed: Yes Assessment & Plan Discharge Plan: [facility] (With hospice) Plan to discharge in: 24 Hours Physician Review Additional Text: Impression: Sepsis secondary to UTI, urine culture positive for E coli Severe hypernatremia COVID 19 positive Metabolic encephalopathy related to above History of CVA Oropharyngeal dysphagia Alzheimer's dementia without behavioral disturbance Severe protein malnutrition Anemia likely of chronic disease Plan: Sepsis secondary to UTI, urine culture positive for E coli: Patient currently on oral antibiotic therapy. Patient was retested for COVID. She is again positive. Current halfway will not be able to take her back. Social work working send her to another facility that will take positive COVID patient's. Spoke with sister concerning issues about sending her to a facility. Will try [facility] at this time. Awaiting approval to go to skilled facility. Case discussed at length with case management. Social work working on other facilities. Once approved patient can be discharge. Severe hypernatremia: Will discontinue IV fluids. Nephrology agreed. COVID 19 positive: Continue as above Metabolic encephalopathy related to above: This may be related to above and poor nutrition at this time. Will pursue hospice. History of CVA: Stable. Oropharyngeal dysphagia: This was discussed in detail with the sister. Patient has had poor oral intake over the last couple of days. This may be a factor. Sister preferred not to have PEG tube placed as the patient has underlying Alzheimer's dementia. Risks and benefits addressed. Continue with halfway with hospice Alzheimer's dementia without behavioral disturbance: Continue with above recomm endation. Severe protein malnutrition: Will pursue hospice and comfort feeding. Anemia likely of chronic disease: Will monitor this closely. Continue as above. Time Spent Managing Pts Care (In Minutes): 55
[2020-01-26] MEDS: ATORVASTATIN 10 MG TAB PO SCH (19:48)
[2020-01-26] MEDS: OLANZapine 10 MG TABLET PO SCH (19:49)
[2020-01-26] MEDS: HALOPERIDOL LACT 5 MG/ML INJ IV PRN (22:43)
[2020-01-27] MEDS ORDERED: WATER FOR INJ,STERILE 10 ML IM PRN (01:13)
[2020-01-27] MEDS ORDERED: METOPROLOL TARTRATE 5 MG/5 ML INJ IV STA (01:13)
[2020-01-27] MEDS ORDERED: ZIPRASIDONE MESYLA 20 MG/VIAL IM ONE (01:13)
[2020-01-27] MEDS: LEVOTHYROXINE SOD 0.05 MG TABLET PO SCH (05:23)
[2020-01-27] MEDS: HALOPERIDOL LACT 5 MG/ML INJ IV PRN ×2 (05:23→19:23)
[2020-01-27 06:13] LABS: Albumin 1.9 g/dL (3.4-5.0); BUN Blood Urea Nitrogen 10 mg/dL (7-18); Bicarbonate 25 mmol/L (21-32); Glucose Level 100 mg/dL (74-106); Phosphorus 2.4 mg/dL (2.5-4.9); Potassium 3.7 mmol/L (3.5-5.1); Sodium Level 138 mmol/L (136-145)
[2020-01-27] MEDS: SMZ./TMP. 800/160 MG TABLET PO SCH ×2 (08:17→19:21)
[2020-01-27] MEDS: ASCORBIC ACID 500 MG TABLET PO SCH (08:18)
[2020-01-27] MEDS: ENOXAPARIN 40 MG/0.4 ML SQ SCH (08:18)
[2020-01-27] MEDS: ASPIRIN 81 MG CHEWABLE TABLET PO SCH (08:19)
[2020-01-27] MEDS: VITAMIN D 1000 UNIT TAB PO SCH (08:19)
[2020-01-27] MEDS: ZINC SULFATE 220 MG CAP PO SCH (08:19)
[2020-01-27] MEDS: FAMOTIDINE 20 MG TAB PO SCH (08:20)
[2020-01-27] MEDS: CARBAMAZEPINE PO SCH ×2 (08:20→19:22)
[2020-01-27] MEDS: SCOPOLAMINE HYDROBROMIDE PATCH TD SCH (08:21)
[2020-01-27] MEDS: ENSURE ENLIVE 237 ML CAN PO SCH ×2 (08:25→19:23)
[2020-01-27] MEDS ORDERED: POTASSIUM PHOS IN 0.9 % NACL 15 MMOL/250 ML BAG IV ONE (09:00)
[2020-01-27] MEDS: ACETAMINOPHEN 500 MG TAB PO PRN ×2 (10:34→19:23)
--- NOTE | 2020-01-27 14:10 | P.PN ---
Subjective Date of Service: 01/27/20 Chief Complaint: Altered mental status Subjective: Other (Patient visualized from window. Nurses report patient stable at this time. Patient did not sleep well last night.) Physical Examination - Vital Signs Temperature: 97.6 F Blood Pressure: 159/72 Pulse: 102 Respirations: 20 Pulse Ox (%): 100 - Physical Exam General: Alert, Other (Patient visualized from window. Patient appears stable. No respiratory distress noted. Monitors reviewed.) - Studies Medications List Reviewed: Yes Assessment & Plan [facility]charge [facility]: [facility] Plan to discharge in: 72 Hours Physician Review Additional Text: Impression: Sepsis secondary to UTI, urine culture positive for E coli Severe hypernatremia COVID 19 positive Metabolic encephalopathy related to above History of CVA Oropharyngeal dysphagia Alzheimer's dementia without behavioral disturbance Severe protein malnutrition Anemia likely of chronic disease Plan: Sepsis secondary to UTI, urine culture positive for E coli: Patient still stable at this time. Waiting for approval on longterm. Patient currently on oral antibiotic therapy. Patient was retested for COVID. She is again positive. Current longterm will not be able to take her back. Social work working send her to another facility that will take positive COVID patient's. Spoke with sister concerning issues about sending her to a facility. Will try [facility] at this time. Awaiting approval to go to longterm with hospice in place. Anticipate this will occur on Wednesday. Severe hypernatremia: Will discontinue IV fluids. Nephrology agreed. COVID 19 positive: Continue as above Metabolic encephalopathy related to above: This may be related to above and poor nutrition at this time. Will pursue hospice. History of CVA: Stable. Oropharyngeal dysphagia: This was discussed in detail with the sister. Patient has had poor oral intake over the last couple of days. This may be a factor. Sister preferred not to have PEG tube placed as the patient has underlying Alzheimer's dementia. Risks and benefits addressed. Continue with longterm with hospice Alzheimer's dementia without behavioral disturbance: Continue with above recommendation. Severe protein malnutrition: Will pursue hospice and comfort feeding. Anemia likely of chronic disease: Will monitor this closely. Continue as above. Time Spent Managing Pts Care (In Minutes): 55
[2020-01-27] MEDS: ATORVASTATIN 10 MG TAB PO SCH (19:21)
[2020-01-27] MEDS: OLANZapine 10 MG TABLET PO SCH (19:22)
[2020-01-27] MEDS ORDERED: FENTANYL CITR 100 MCG/2 ML IV ONE (22:53)
--- NOTE | 2020-01-28 01:48 | PN ---
Date of Progress Note: 01/27/2020 Chief Complaint: Hypernatremia, acute on chronic kidney injury, prerenal azotemia. Subjective: Patient is a 69-year-old long-term resident with history of CVA, dysphagia, COPD. [place] was referred from SNF for fever. She was found to have COVID. Physical Examination: Deferred to hospitalist due to COVID-19 regulation. Patient developed edema and received Lasix. Laboratory Data: Hemoglobin 8.2, WBC 16.3, platelet count is 325,000. Sodium 138, potassium 3.7, ch loride 105, CO2 of 25, BUN 10, creatinine 0.47, phosphorus 2.44, calcium 7.9, magnesium 2.0. Impression And Plan: 1.Acute kidney injury with prerenal azotemia and dehydration. Sodium level gradually improved with IV fluids. Patient developed some legs edema and received Lasix. Patient is treated with antibiotic s for urinary tract infection. Urine culture was positive for E coli. Patient is coronavirus diseas e 2019 positive per the recommendations from primary team as far as management of coronavirus disease 2019. 2.Sepsis secondary to urinary tract infection. Continue antibiotics. 3.Severe hypernatremia, improved. 4.Alzheimer dementia per primary team. 5.Severe protein malnutrition. Patient may need a PEG tube. EB/MODL Voice ID: [id number] Report ID: [id number]
[2020-01-28] MEDS: LEVOTHYROXINE SOD 0.05 MG TABLET PO SCH (05:30)
[2020-01-28] MEDS: HALOPERIDOL LACT 5 MG/ML INJ IV PRN ×3 (05:30→19:34)
[2020-01-28 07:03] LABS: Albumin 1.8 g/dL (3.4-5.0); BUN Blood Urea Nitrogen 10 mg/dL (7-18); Bicarbonate 22 mmol/L (21-32); Glucose Level 80 mg/dL (74-106); Magnesium 1.9 mg/dL (1.8-2.4); Phosphorus 2.9 mg/dL (2.5-4.9); Potassium 4.5 mmol/L (3.5-5.1); Sodium Level 137 mmol/L (136-145)
[2020-01-28] MEDS: SMZ./TMP. 800/160 MG TABLET PO SCH ×2 (07:45→19:34)
[2020-01-28] MEDS: ASPIRIN 81 MG CHEWABLE TABLET PO SCH (07:45)
[2020-01-28] MEDS: ZINC SULFATE 220 MG CAP PO SCH (07:45)
[2020-01-28] MEDS: FAMOTIDINE 20 MG TAB PO SCH (07:45)
[2020-01-28] MEDS: ASCORBIC ACID 500 MG TABLET PO SCH (07:45)
[2020-01-28] MEDS: VITAMIN D 1000 UNIT TAB PO SCH (07:46)
[2020-01-28] MEDS: ENSURE ENLIVE 237 ML CAN PO SCH ×2 (07:46→19:34)
[2020-01-28] MEDS: ENOXAPARIN 40 MG/0.4 ML SQ SCH (07:46)
[2020-01-28] MEDS: CARBAMAZEPINE PO SCH ×2 (07:46→19:37)
--- NOTE | 2020-01-28 17:58 | P.PN ---
Subjective Date of Service: 01/28/20 Chief Complaint: Altered mental status Subjective: Improving (Patient is doing better alert an oriented x2 heating well) Review of Systems is unable to be obtained Physical Examination - Vital Signs Temperature: 97.9 F Blood Pressure: 158/76 Pulse: 106 Respirations: 18 Pulse Ox (%): 97 - Physical Exam General: Alert, Oriented x2 Respiratory: Clear to auscultation bilaterally Cardiovascular: No edema, Normal S1 S2 - Studies Medications List Reviewed: Yes Assessment & Plan - Problems (Diagnosis) (1) Hypernatremia Current Visit: Yes Status: Resolved Plan: Hypernatremia resolved discontinue Marquis catheter patient is eating and drinking (2) Coronavirus infection Current Visit: Yes Status: Acute Plan: Patient is doing better he is currently afebrile awaiting transfer to a different correction with per hr wire is patient's vital signs are all stable she is not any respiratory distress patient is a cystitis on Bactrim Physician Review Additional Text: Impression: Sepsis secondary to UTI, urine culture positive for E coli Severe hypernatremia COVID 19 positive Metabolic encephalopathy related to above History of CVA Oropharyngeal dysphagia Alzheimer's dementia without behavioral disturbance Severe protein malnutrition Anemia likely of chronic disease Plan: Sepsis secondary to UTI, urine culture positive for E coli: Patient still stable at this time. Waiting for approval on correction. Patient currently on oral antibiotic therapy. Patient was retested for COVID. She is again positive. Current correction will not be able to take her back. Social work working send her to another facility that will take positive COVID patient's. Spoke with sister concerning issues about sending her to a facility. Will try [facility] at this time. Awaiting approval to go to correction with hospice in place. Anticipate this will occur on Wednesday. Severe hypernatremia: Will discontinue IV fluids. Nephrology agreed. COVID 19 positive: Continue as above Metabolic encephalopathy related to above: This may be related to above and poor nutrition at this time. Will pursue hospice. History of CVA: Stable. Oropharyngeal dysphagia: This was discussed in detail with the sister. Patient has had poor oral intake over the last couple of days. This may be a factor. Sister preferred not to have PEG tube placed as the patient has underlying Alzheimer's dementia. Risks and benefits addressed. Continue with [facility] with hospice Alzheimer's dementia without behavioral disturbance: Continue with above recommendation. Severe protein malnutrition: Will pursue hospice and comfort feeding. Anemia likely of chronic disease: Will monitor this closely. Continue as above.
[2020-01-28] MEDS: OLANZapine 10 MG TABLET PO SCH (19:34)
[2020-01-28] MEDS: ATORVASTATIN 10 MG TAB PO SCH (19:35)
[2020-01-28] MEDS ORDERED: FENTANYL CITR 100 MCG/2 ML IV ONE (22:48)
--- NOTE | 2020-01-28 23:30 | PN ---
Date of Progress Note: 01/28/2020 Chief Complaint: Acute on chronic kidney injury. History Of Present Illness: Patient is admitted to the hospital because of COVID infection. She has multiple medical problems including history of CVA, dysphagia, COPD. She was referred primarily from SNF for fever and was found to have COVID. Physical Examination: Defer to hospitalist due to COVID-19 regulation. Laboratory Work: Hemoglobin 8.2, WBC 16.3, platelet count 325,000. Sodium 137, potassium 4.5, chloride 106, CO2 of 22, BUN 10, creatinine 0.47, calcium 8.1, phosphorus 2.1, magnesium 1.9. Assessment And Plan: 1. Acute kidney injury. Renal function has improved, primarily creatinine was up to 1.67 and is improving gradually. BUN improved from 75. Patient has severe hyperazotemia, responded to IV fluids and monitor electrolytes and avoid nephrotoxic medication. 2. Coronavirus disease infection per primary team and Pulmonary team. 3. Hypernatremia, treated with IV fluids. Patient was dehydrated and hypernatremia resolved. Continue Marquis catheter. Monitor fluid balance. 4. Coronavirus infection. Patient is doing better. Currently, does not have a fever and she will be treated by Pulmonary service. 5. Urinary tract infection. Continue treatment. I spent total 36 min including 25 min to coordinate care plan. ERIKA/THOMAS Voice ID: [id number] Report ID: [id number] MTDD
[2020-01-29 04:39] LABS: BUN Blood Urea Nitrogen 8 mg/dL (7-18); Bicarbonate 23 mmol/L (21-32); Glucose Level 87 mg/dL (74-106); Magnesium 1.9 mg/dL (1.8-2.4); Phosphorus 2.8 mg/dL (2.5-4.9); Potassium 4.3 mmol/L (3.5-5.1); Sodium Level 138 mmol/L (136-145)
[2020-01-29] MEDS: HALOPERIDOL LACT 5 MG/ML INJ IV PRN ×2 (04:41→20:11)
[2020-01-29] MEDS: METOPROLOL TARTRATE 5 MG/5 ML INJ IV PRN ×2 (04:41→08:13)
[2020-01-29] MEDS: LEVOTHYROXINE SOD 0.05 MG TABLET PO SCH (04:41)
[2020-01-29] MEDS: FAMOTIDINE 20 MG TAB PO SCH (08:24)
[2020-01-29] MEDS: ENOXAPARIN 40 MG/0.4 ML SQ SCH (08:24)
[2020-01-29] MEDS: ENSURE ENLIVE 237 ML CAN PO SCH ×2 (08:24→20:10)
[2020-01-29] MEDS: ZINC SULFATE 220 MG CAP PO SCH (08:24)
[2020-01-29] MEDS: VITAMIN D 1000 UNIT TAB PO SCH (08:24)
[2020-01-29] MEDS: ASCORBIC ACID 500 MG TABLET PO SCH (08:24)
[2020-01-29] MEDS: SMZ./TMP. 800/160 MG TABLET PO SCH ×2 (08:24→20:10)
[2020-01-29] MEDS: ASPIRIN 81 MG CHEWABLE TABLET PO SCH (08:24)
[2020-01-29] MEDS: CARBAMAZEPINE PO SCH ×2 (08:28→20:11)
--- NOTE | 2020-01-29 09:40 | P.PN ---
Date of Service: 01/29/20 Subjective: Patient is a 69 year old female fdc resident who presents with altered mental status and fever. Patient found to have UTI and tested positive for covid-19 which I have been consulted for. Patient has history of CVA and is poor historian. Patient examined through glass door. Not in any acute distress, not requiring supplemental oxygen, daugherty catheter in place. Patient still with poor appetite. Per nurse, patient has not been sleeping well. Patient to go on Hospice once she returns to the fdc. Objective: Temp Pulse Resp BP Pulse Ox 99.3 F 121 H 20 161/66 H 98 01/29/20 08:00 01/29/20 08:00 01/29/20 08:00 01/29/20 08:00 01/29/20 08:00 Labs: Na 138, K 4.3, BUN 8, Creat 0.50. No new CBC since 01/20 Chest x-ray 01/22: EXAM DESCRIPTION: RAD - Chest Single View - 01/23/2020 2:10 pm CLINICAL HISTORY: Evaluate for Aspiration Chest pain. COMPARISON: Chest Single View dated 01/18/2020; Chest Single View dated 12/22/2019; CHEST SINGLE VIEW dated 09/19/2010; CHEST SINGLE VIEW dated 09/17/2010 FINDINGS: Portable technique limits examination quality. Ifrx-vm-naszltez infiltrate is present in the left base likely representing pneumonia. The heart is normal in size. No displaced fractures. IMPRESSION: Left lower lobe infiltrate/ pneumonia. Assessment and plan: 01/17 Covid 19 positive, repeat covid testing done 01/22 positive Leukocytosis, no new CBC Fevers resolved UTI, urine culture positive for E. Coli Continue current treatment Blood cultures positive for staph coag negative, most likely from contamination CSF culture negative Patients awaiting approval to return to fdc Will continue to monitor Patient discussed with Dr. Sanford
--- NOTE | 2020-01-29 15:05 | P.PN ---
Subjective Date of Service: 01/29/20 Chief Complaint: Altered mental status Subjective: Doing well Physical Examination - Vital Signs Temperature: 98.6 F Blood Pressure: 138/74 Pulse: 89 Respirations: 16 Pulse Ox (%): 97 - Physical Exam General: Other (Patient seen from afar from the window. Patient is asleep. Vital signs appear stable. Sees breathing fine. Nurses report no change.) - Studies Medications List Reviewed: Yes Assessment & Plan Discharge Plan: [facility] (With [facility]) Plan to discharge in: 24 Hours Physician Review Additional Text: Impression: Sepsis secondary to UTI, urine culture positive for E coli Severe hypernatremia COVID 19 positive Metabolic encephalopathy related to above History of CVA Oropharyngeal dysphagia Alzheimer's dementia without behavioral disturbance Severe protein malnutrition Anemia likely of chronic disease Plan: Sepsis secondary to UTI, urine culture positive for E coli: Patient still stable at this time. Waiting for approval on retirement. Patient currently on oral antibiotic therapy. Patient will only need 7 days of therapy. Patient was retested for COVID. She is again positive. Current retirement will not be able to take her back due to positive lab. Social work working send her to another facility that will take positive COVID patient's. Spoke with sister concerning issues about sending her to a facility. Will try [facility] at this time. Awaiting approval to go to retirement with hospice in place that t [place] COVID positive patients. Anticipate this will occur on Wednesday. I will turn the service over to the hospitalist team tomorrow. I will go over the plan of care with him. Severe hypernatremia: Will discontinue IV fluids. Nephrology agreed. COVID 19 positive: Continue as above Metabolic encephalopathy related to above: This may be related to above and poor nutrition at this time. Will pursue hospice. History of CVA: Stable. Oropharyngeal dysphagia: This was discussed in detail with the sister. Patient has had poor oral intake over the last couple of days. This may be a factor. Sister preferred not to have PEG tube placed as the patient has underlying Alzheimer's dementia. Risks and benefits addressed. Continue with retirement with hospice Alzheimer's dementia without behavioral disturbance: Continue with above recommendation. Severe protein malnutrition: Will pursue hospice and comfort feeding. Anemia likely of chronic disease: Will monitor this closely. Continue as above. Time Spent Managing Pts Care (In Minutes): 55
[2020-01-29] MEDS: ATORVASTATIN 10 MG TAB PO SCH (20:10)
[2020-01-29] MEDS: OLANZapine 10 MG TABLET PO SCH (20:10)
[2020-01-29] MEDS: ACETAMINOPHEN 500 MG TAB PO PRN (21:47)
--- NOTE | 2020-01-29 23:54 | PN ---
Date of Progress Note: 01/29/2020 Chief Complaint: Acute on chronic kidney injury. History Of Present Illness: Patient was admitted to the hospital because of COVID infection. She has multiple medical problems including history of CVA, dysphagia, COPD. Patient was found to have acute kidney injury. Creatinine level was 1.6 and currently creatinine level improved to 0.47 over last several days. Patient responded to IV fluids. Physical Examination: Deferred to hospitalist due to COVID-19 regulation. Impression And Plan: 1. Acute kidney injury. Renal function has improved and primary creatinine was up to 1.67 and is gradually improving. BUN improved from 75 to 10. Patient has severe hyperazotemia, although responded to IV fluids and did not require dialysis. Plan is to monitor electrolytes, renal function and avoid nephrotoxic medication. 2. Coronavirus disease infection per primary team, Pulmonary team. 3. Hypernatremia, treated and improving with IV fluids. Monitor electrolytes. Continue Marquis catheter and monitor fluid balance. 4. Coronavirus infection. Patient is clinically doing better and Pulmonary service is following the patient. 5. Urinary tract infection. Continue treatment. I spent total 36 min including 25 min to coordinate care plan. ERIKA/MODL Voice ID: [id number] Report ID: [id number] SYLVIE
[2020-01-30] MEDS: HALOPERIDOL LACT 5 MG/ML INJ IV PRN ×3 (01:45→15:10)
[2020-01-30] MEDS: ACETAMINOPHEN 500 MG TAB PO PRN ×2 (03:46→19:25)
[2020-01-30 04:06] LABS: Albumin 1.9 g/dL (3.4-5.0); BUN Blood Urea Nitrogen 12 mg/dL (7-18); Bicarbonate 23 mmol/L (21-32); Glucose Level 112 mg/dL (74-106); Phosphorus 2.9 mg/dL (2.5-4.9); Sodium Level 138 mmol/L (136-145)
[2020-01-30] MEDS: LEVOTHYROXINE SOD 0.05 MG TABLET PO SCH (05:34)
[2020-01-30] MEDS: ENOXAPARIN 40 MG/0.4 ML SQ SCH (08:20)
[2020-01-30] MEDS: ASPIRIN 81 MG CHEWABLE TABLET PO SCH (08:20)
[2020-01-30] MEDS: SMZ./TMP. 800/160 MG TABLET PO SCH ×2 (08:20→19:24)
[2020-01-30] MEDS: VITAMIN D 1000 UNIT TAB PO SCH (08:20)
[2020-01-30] MEDS: ASCORBIC ACID 500 MG TABLET PO SCH (08:20)
[2020-01-30] MEDS: FAMOTIDINE 20 MG TAB PO SCH (08:20)
[2020-01-30] MEDS: ZINC SULFATE 220 MG CAP PO SCH (08:20)
[2020-01-30] MEDS: ENSURE ENLIVE 237 ML CAN PO SCH ×2 (08:21→19:26)
[2020-01-30] MEDS: SCOPOLAMINE HYDROBROMIDE PATCH TD SCH (08:21)
[2020-01-30] MEDS: CARBAMAZEPINE PO SCH ×2 (08:21→19:26)
--- NOTE | 2020-01-30 13:41 | P.PN ---
Date of Service: 01/30/20 Subjective: Patient is a 69 year old female detention resident who presents with altered mental status and fever. Patient found to have UTI and tested positive for covid-19 which I have been consulted for. Patient has history of CVA and is poor historian. Patient examined through glass door. Not in any acute distress, not requiring supplemental oxygen, daugherty catheter in place. Patient still with poor appetite. Per nurse, no new changes in the past 24 hours. Objective: Temp Pulse Resp BP Pulse Ox 98.8 F 123 H 18 162/78 H 97 01/30/20 11:18 01/30/20 11:18 01/30/20 11:18 01/30/20 11:18 01/30/20 11:18 Labs: Na 138, K 4.0, BUN 12, Creat 0.49. No new CBC since 01/20 Chest x-ray 01/22: EXAM DESCRIPTION: RAD - Chest Single View - 01/23/2020 2:10 pm CLINICAL HISTORY: Evaluate for Aspiration Chest pain. COMPARISON: Chest Single View dated 01/18/2020; Chest Single View dated 12/22/2019; CHEST SINGLE VIEW dated 09/19/2010; CHEST SINGLE VIEW dated 09/17/2010 FINDINGS: Portable technique limits examination quality. [id number]-mg-bnffydko infiltrate is present in the left base likely representing pneumonia. The heart is normal in size. No displaced fractures. IMPRESSION: Left lower lobe infiltrate/ pneumonia. Assessment and plan: 01/17 Covid 19 positive, repeat covid testing done 01/22 positive Leukocytosis, no new CBC Fevers resolved UTI, urine culture positive for E. Coli Continue current treatment Blood cultures positive for staph coag negative, most likely from contamination CSF culture negative Patients awaiting approval to return to detention Will continue to monitor Patient discussed with Dr. Sanford
--- NOTE | 2020-01-30 14:24 | P.PN ---
Subjective Date of Service: 01/30/20 Chief Complaint: Altered mental status Subjective: No new changes Physical Examination - Vital Signs Temperature: 98.8 F Blood Pressure: 140/63 Pulse: 104 Respirations: 18 Pulse Ox (%): 97 - Physical Exam General: In no apparent distress HEENT: Atraumatic, Normocephalic Neck: Supple Respiratory: Clear to auscultation bilaterally Cardiovascular: Regular rate/rhythm Capillary refill: <2 Seconds Gastrointestinal: Soft and benign Musculoskeletal: No clubbing, No swelling Lymphatics: No axilla or inguinal lymphadenopathy Rectal: Deferred - Studies Laboratory Last Values WBC 17.1 K/uL (4.3-10.9) H D 01/18/20 20:00 RBC 3.59 M/uL (3.86-4.86) L 01/18/20 20:00 Hgb 10.7 g/dL (12.0-15.0) L 01/18/20 20:00 Hct 33.7 % (36.0-45.0) L 01/18/20 20:00 MCV 94.0 fL (80-100) 01/18/20 20:00 MCH 29.9 pg (27.0-35.0) 01/18/20 20:00 MCHC 31.8 g/dL (32.0-36.0) L 01/18/20 20:00 RDW 18.7 % (12.1-15.2) H 01/18/20 20:00 Plt Count 611 K/uL (152-406) H 01/18/20 20:00 MPV 7.3 fL (7.6-11.3) L 01/18/20 20:00 Neutrophils % 89.5 % (41.7-73.7) H 01/18/20 20:00 Lymphocytes % 5.1 % (15.3-44.8) L 01/18/20 20:00 Monocytes % 4.9 % (3.3-12.3) 01/18/20 20: Eosinophils % 0.0 % (0-4.4) 01/18/20 20:00 Basophils % 0.5 % (0-1.3) 01/18/20 20:00 Absolute Neutrophils 15.3 K/uL (1.8-8.0) H 01/18/20 20:00 Absolute Lymphocytes 0.9 K/uL (0.7-4.9) 01/18/20 20:00 Absolute Monocytes 0.8 K/uL (0.1-1.3) 01/18/20 20:00 Absolute Eosinophils 0.0 K/uL (0-0.5) 01/18/20 20:00 Absolute Basophils 0.1 K/uL (0-0.5) 01/18/20 20:00 Morphology Comment Not seen (NOT SEEN) 01/18/20 20:00 PT 12.9 SECONDS (9.5-12.5) H 01/18/20 20:00 INR 1.10 01/18/20 20:00 APTT 31.4 SECONDS (24.3-36.9) 01/18/20 20:00 Sodium 161 mmol/L (136-145) H* 01/18/20 20:00 Potassium 3.4 mmol/L (3.5-5.1) L 01/18/20 20:00 Chloride 127 mmol/L (98-107) H* 01/18/20 20:00 Carbon Dioxide 25 mmol/L (21-32) 01/18/20 20:00 BUN 75 mg/dL (7-18) H 01/18/20 20:00 Creatinine 1.67 mg/dL (0.55-1.3) H 01/18/20 20:00 Estimated GFR 30 mL/min (=/>90) L 01/18/20 20:00 Glucose 141 mg/dL (74-106) H 01/18/20 20:00 POC Glucose 131 mg/dl (65-120) H 01/18/20 19:55 Lactic Acid 1.2 mmol/L (0.4-2.0) 01/18/20 20:00 Calcium 9.8 mg/dL (8.5-10.1) 01/18/20 20:00 Total Bilirubin 0.5 mg/dL (0.2-1.0) 01/18/20 20:00 Direct Bilirubin 0.2 mg/dL (0-0.2) 01/18/20 20:00 AST 33 U/L (15-37) 01/18/20 20:00 ALT 21 U/L (12-78) 01/18/20 20:00 Alkaline Phosphatase 85 U/L (45-117) 01/18/20 20:00 Creatine Kinase 167 U/L (26-192) 01/18/20 20:00 CK-MB (CK-2) < 1.0 ng/mL (0.3-3.6) 01/18/20 20:00 Rapid Troponin I 0.06 ng/mL (0.0-0.045) H 01/18/20 20:00 Serum Total Protein 7.6 g/dL (6.4-8.2) 01/18/20 20:00 Albumin 3.1 g/dL (3.4-5.0) L 01/18/20 20:00 Globulin 4.5 g/dL (2.3-3.5) H 01/18/20 20:00 Albumin/Globulin Ratio 0.7 (1.1-1.8) L 01/18/20 20:00 Amylase 68 U/L (25-115) 01/18/20 20:00 Lipase 145 U/L (73-393) 01/18/20 20:00 Procalcitonin 2.81 ng/mL (<0.50) H 01/18/20 20:00 Urine pH 5.5 (5.0-7.0) 01/18/20 20:40 Ur Specific [place] 1.030 (1.005-1.030) 01/18/20 20:40 Glucose (UA)(Auto) Negative (NEG) 01/18/20 20:40 Urine Ketones Trace (NEG) 01/18/20 20:40 Urine Blood Negative (NEG) 01/18/20 20:40 Urine Nitrite Negative (NEG) 01/18/20 20:40 Ur Leukocyte Esterase Negative (NEG) 01/18/20 20:40 Urine RBC <5 /HPF (NONE SEEN) 01/18/20 20:30 Urine WBC 20-50 /HPF (<5) H 01/18/20 20:30 Ur Squamous Epith Cells <5 /HPF (NONE SEEN) 01/18/20 20:30 Urine Bacteria >50 /HPF (<20) H 01/18/20 20:30 Urine Culture Reflexed Reflexed 01/18/20 20:30 Urine Total Protein 1+ (NEG) H 01/18/20 20:40 Fluid Source Cancelled 01/18/20 21:40 Fluid Source Cancelled 01/18/20 21:40 Fluid Volume Cancelled 01/18/20 21:40 Fluid Color Cancelled 01/18/20 21:40 Fluid Color Cancelled 01/18/20 21:40 Fluid Appearance Cancelled 01/18/20 21:40 Fluid Appearance Cancelled 01/18/20 21:40 Fld Supernatant Color Cancelled 01/18/20 21:40 Fld Supernatant Color Cancelled 01/18/20 21:40 Fluid WBC Cancelled 01/18/20 21:40 Fluid WBC Cancelled 01/18/20 21:40 Fluid RBC Cancelled 01/18/20 21:40 Fluid RBC Cancelled 01/18/20 21:40 Fluid Neutrophils Cancelled 01/18/20 21:40 Fluid Neutrophils Cancelled 01/18/20 21:40 Fluid Lymphocytes Cancelled 01/18/20 21:40 Fluid Lymphocytes Cancelled 01/18/20 21:40 Fluid Eosinophils Cancelled 01/18/20 21:40 Fluid Eosinophils Cancelled 01/18/20 21:40 Fluid Mononuclear Cell Cancelled 01/18/20 21:40 Fluid Mononuclear Cell Cancelled 01/18/20 21:40 CSF Glucose Cancelled 01/18/20 21:40 CSF Total Protein Cancelled 01/18/20 21:40 Medications List Reviewed: Yes Assessment & Plan Physician Review Additional Text: Impression: Sepsis secondary to UTI, urine culture positive for E coli Severe hypernatremia COVID 19 positive Metabolic encephalopathy related to above History of CVA Oropharyngeal dysphagia Alzheimer's dementia without behavioral disturbance Severe protein malnutrition Anemia likely of chronic disease Plan: Sepsis secondary to UTI, urine culture positive for E coli: Patient still stable at this time. Waiting for approval on longterm. Patient currently on oral antibiotic therapy. Patient will only need 7 days of therapy. Patient was retested for COVID. She is again positive. Current longterm will not be able to take her back due to positive lab. Social work working send her to another facility that will take positive COVID patient's. Spoke with sister concerning issues about sending her to a facility. Will try [facility] at this time. Awaiting approval to go to longterm with hospice in place that take COVID positive patients. Severe hypernatremia: Will discontinue IV fluids. Nephrology agreed. COVID 19 positive: Continue as above Metabolic encephalopathy related to above: This may be related to above and poor nutrition at this time. Will pursue hospice. History of CVA: Stable. Oropharyngeal dysphagia: This was discussed in detail with the sister. Patient has had poor oral intake over the last couple of days. This may be a factor. Sister preferred not to have PEG tube placed as the patient has underlying Alzheimer's dementia. Risks and benefits addressed. Continue with longterm with hospice Alzheimer's dementia without behavioral disturbance: Continue with above recommendation. Severe protein malnutrition: Will pursue hospice and comfort feeding. Anemia likely of chronic disease: Will monitor this closely. Continue as above CBC and BMP monitor hemoglobin still low but not dropping Leukocytosis noted Awaiting placement . Time Spent Managing Pts Care (In Minutes): 30
--- NOTE | 2020-01-30 18:52 | PN ---
Date of Progress Note: 01/30/2020 History Of Present Illness: Patient was admitted with COVID pneumonia. Patient had acute kidney inj ury secondary to prerenal/COVID nephropathy. Patient did not require any renal replacement therapy. Kidney function has been normalized. Physical Examination: Vital Signs: Blood pressure 140/63, pulse of 100, afebrile. Chest: Faint rales on the base. Heart: S1, S2. Regular. Abdomen: Soft, nontender. Extremities: Trace edema. Neuro: Nonfocal. Patient's exam has been done by the nurse by instruction from me through the video as the patient is in isolation for COVID pneumonia. Laboratory Data: WBC 16.3, H and H 8.2/25.6, platelet 325. Sodium 138, potassium 4, bicarb 23, BUN 12, creatinine 0.4, GFR above 90, calcium 7.9, phosphorus 2.9, albumin 1.9. Current Medications: The patient on include: 1.Aspirin. 2.Bactrim. 3.Atorvastatin. 4.Metoprolol. 5.Haloperidol. 6.Zinc sulfate. Assessment And Plan: 1.Acute kidney injury secondary to prerenal, superimposed with toxic acute tubular necrosis secondar y to urinary tract infection/coronavirus disease nephropathy, recovered, resolved. Keep holding IV f luid. 2.Hypertension, controlled, optimal. 3.Urinary tract infection secondary to Escherichia coli. Continue Bactrim. 4.Hypokalemia, hypomagnesemia, hypophosphatemia, status post supplement, resolved. 5.Coronavirus disease pneumonia as by primary. BILL/THOMAS Voice ID: [id number] Report ID: [id number]
[2020-01-30] MEDS: ATORVASTATIN 10 MG TAB PO SCH (19:24)
[2020-01-30] MEDS: OLANZapine 10 MG TABLET PO SCH (19:24)
[2020-01-31] MEDS: ASPIRIN 81 MG CHEWABLE TABLET PO SCH (08:41)
[2020-01-31] MEDS: LEVOTHYROXINE SOD 0.05 MG TABLET PO SCH (08:41)
[2020-01-31] MEDS: SMZ./TMP. 800/160 MG TABLET PO SCH ×2 (08:42→19:44)
[2020-01-31] MEDS: CARBAMAZEPINE PO SCH ×2 (08:42→19:46)
[2020-01-31] MEDS: VITAMIN D 1000 UNIT TAB PO SCH (08:42)
[2020-01-31] MEDS: ENSURE ENLIVE 237 ML CAN PO SCH ×2 (08:42→19:46)
[2020-01-31] MEDS: ASCORBIC ACID 500 MG TABLET PO SCH (08:42)
[2020-01-31] MEDS: FAMOTIDINE 20 MG TAB PO SCH (08:42)
[2020-01-31] MEDS: ENOXAPARIN 40 MG/0.4 ML SQ SCH (08:42)
[2020-01-31] MEDS: ZINC SULFATE 220 MG CAP PO SCH (08:43)
--- NOTE | 2020-01-31 09:52 | P.PN ---
Subjective Date of Service: 01/31/20 Chief Complaint: Altered mental status Subjective: No new changes Patient is waiting for placement. Physical Examination - Vital Signs Temperature: 98.9 F Blood Pressure: 155/68 Pulse: 128 Respirations: 20 Pulse Ox (%): 97 - Physical Exam General: Confused, Other (Awake,) HEENT: Mucous membr. moist/pink Neck: Supple Respiratory: Other (Bilateral upper airway transmitted sounds) Cardiovascular: No edema Gastrointestinal: Normal bowel sounds, Soft and benign - Studies Medications List Reviewed: Yes Assessment And Plan - Current Problems (Diagnosis) (1) Sepsis Current Visit: Yes Status: Acute (2) Metabolic encephalopathy Current Visit: Yes Status: Acute (3) Acute cystitis without hematuria Current Visit: Yes Status: Acute (4) Hypernatremia Current Visit: Yes Status: Acute (5) Acute renal failure Current Visit: Yes Status: Acute (6) History of CVA (cerebrovascular accident) Current Visit: Yes Status: Acute (7) Oropharyngeal dysphagia Current Visit: Yes Status: Acute (8) Dementia Current Visit: Yes Status: Acute (9) Severe protein-calorie malnutrition Current Visit: Yes Status: Acute (10) Elevated troponin Current Visit: Yes Status: Acute Physician Review Additional Text: Impression: Sepsis secondary to UTI, urine culture positive for E coli Severe hypernatremia COVID 19 positive Metabolic encephalopathy related to above History of CVA Oropharyngeal dysphagia Alzheimer's dementia without behavioral disturbance Severe protein malnutrition Anemia likely of chronic disease Plan: Sepsis secondary to UTI, urine culture positive for E coli: Stable. Waiting for approval on correction. Patient currently on oral antibiotic therapy. Patient will only need 7 days of therapy. Patient was retested for COVID. She is again positive. Current correction will not be able to take her back due to positive lab. Awaiting approval to go to correction with hospice in place that take COVID positive patients. Severe hypernatremia: Hypernatremia resolved. IV fluids discontinued. Nephrology assisted with management. COVID 19 positive: Continue as above Metabolic encephalopathy related to above: This may be related to above and poor nutrition at this time. Patient is slated for hospice. History of CVA: Stable. Oropharyngeal dysphagia: This was discussed in detail with the sister. Patient has had poor oral intake over the last couple of days. This may be a factor. Sister preferred not to have PEG tube placed as the patient has underlying Alzheimer's dementia. Risks and benefits addressed. Alzheimer's dementia without behavioral disturbance: Stable Severe protein malnutrition: Hospice and comfort feeding. Anemia likely of chronic disease: Hospice. .
--- NOTE | 2020-01-31 10:28 | PN ---
Date of Progress Note: 01/31/2020 Patient was admitted with COVID pneumonia, acute kidney injury secondary to COVID nephropathy, preren al, recovered, resolved. Patient still waiting for placement. Physical Examination: Vital Signs: Blood pressure 155/68, pulse of 100, afebrile. The patient had good urine output of 13 00. Chest: Faint crackles, bilateral base. Heart: S1, S2. Regular. Abdomen: Soft, nontender. Extremities: Trace edema. Neuro: Alert. No focal. Please notice that this examination done by the video under the instruction of me done by the nurse celina s the patient on isolation for COVID pneumonia. Laboratory Data: WBC 16.3, H and H 8.2/25.6, platelets 325. Sodium of 138, potassium 4, bicarb 23, BUN 12, creatinine 0.4, calcium 7.9, magnesium 2.9. Phosphorus 2.9, magnesium of 2. Current Medications: Bactrim, aspirin, Lovenox, atorvastatin, metoprolol, ensure. Assessment And Plan: 1.Acute kidney injury secondary to coronavirus disease nephropathy/prerenal, recovered resolved. 2.Hypernatremia, resolved. 3.Hypokalemia, hypophosphatemia, hypomagnesemia, status post treatment, resolved. 4.Urinary tract infection secondary to Escherichia coli. Continue Bactrim. 5.Coronavirus disease pneumonia status post treatment. Follow up with Primary and Pulmonary. BILL/THOMAS Voice ID: [id number] Report ID: [id number]
--- NOTE | 2020-01-31 13:29 | P.PN ---
Date of Service: 01/31/20 Subjective: Patient is a 69 year old female [facility] resident who presents with altered mental status and fever. Patient found to have UTI and tested positive for covid-19 which I have been consulted for. Patient has history of CVA and is poor historian. Patient examined through glass door. Patient stable. Not in any acute distress, not requiring supplemental oxygen. Patient still with poor appetite. Per nurse, no new changes in the past 24 hours. Objective: Temp Pulse Resp BP Pulse Ox 98.9 F 120 H 20 161/79 H 97 01/31/20 12:00 01/31/20 12:00 01/31/20 12:00 01/31/20 12:00 01/31/20 12:00 Labs: No new labs available Chest x-ray 01/22: EXAM DESCRIPTION: RAD - Chest Single View - 01/23/2020 2:10 pm CLINICAL HISTORY: Evaluate for Aspiration Chest pain. COMPARISON: Chest Single View dated 01/18/2020; Chest Single View dated 12/22/2019; CHEST SINGLE VIEW dated 09/19/2010; CHEST SINGLE VIEW dated 09/17/2010 FINDINGS: Portable technique limits examination quality. [id number] infiltrate is present in the left base likely representing pneumonia. The heart is normal in size. No displaced fractures. IMPRESSION: Left lower lobe infiltrate/ pneumonia. Assessment and plan: 01/17 Covid 19 positive, repeat covid testing done 01/22 positive Leukocytosis, no new CBC Fevers resolved UTI, urine culture positive for E. Coli Continue Bactrim for total of 7 days Blood cultures positive for staph coag negative, most likely from contamination CSF culture negative Patients awaiting approval to return to [facility] Will continue to monitor Patient discussed with Dr. Sanford
[2020-01-31] MEDS: OLANZapine 10 MG TABLET PO SCH (19:43)
[2020-01-31] MEDS: ATORVASTATIN 10 MG TAB PO SCH (19:45)
[2020-01-31] MEDS: ACETAMINOPHEN 500 MG TAB PO PRN (19:45)
[2020-02-01] MEDS: LEVOTHYROXINE SOD 0.05 MG TABLET PO SCH (05:24)
[2020-02-01] MEDS: ASCORBIC ACID 500 MG TABLET PO SCH (08:48)
[2020-02-01] MEDS: ENOXAPARIN 40 MG/0.4 ML SQ SCH (08:48)
[2020-02-01] MEDS: ZINC SULFATE 220 MG CAP PO SCH (08:49)
[2020-02-01] MEDS: VITAMIN D 1000 UNIT TAB PO SCH (08:49)
[2020-02-01] MEDS: ASPIRIN 81 MG CHEWABLE TABLET PO SCH (08:49)
[2020-02-01] MEDS: ENSURE ENLIVE 237 ML CAN PO SCH ×2 (08:50→19:59)
[2020-02-01] MEDS: SMZ./TMP. 800/160 MG TABLET PO SCH (08:50)
[2020-02-01] MEDS: FAMOTIDINE 20 MG TAB PO SCH (08:50)
[2020-02-01] MEDS: CARBAMAZEPINE PO SCH ×2 (08:50→19:59)
--- NOTE | 2020-02-01 14:11 | P.PN ---
Subjective Date of Service: 02/01/20 Chief Complaint: Altered mental status Subjective: No new changes Review of Systems is unable to be obtained Physical Examination - Vital Signs Temperature: 98.3 F Blood Pressure: 154/55 Pulse: 111 Respirations: 20 Pulse Ox (%): 99 - Physical Exam General: Alert, In no apparent distress HEENT: Atraumatic, Normocephalic Neck: Supple Cardiovascular: Regular rate/rhythm Capillary refill: <2 Seconds Gastrointestinal: Soft and benign, Non-distended Musculoskeletal: No clubbing, No swelling Integumentary: No rashes Rectal: Deferred - Studies Medications List Reviewed: Yes Assessment & Plan - Problems (Diagnosis) (1) Acute cystitis without hematuria Current Visit: Yes Status: Acute (2) Acute renal failure Current Visit: Yes Status: Acute (3) Coronavirus infection Current Visit: Yes Status: Acute (4) Dementia Current Visit: Yes Status: Acute (5) Elevated troponin Current Visit: Yes Status: Acute (6) History of CVA (cerebrovascular accident) Current Visit: Yes Status: Acute (7) Hypernatremia Current Visit: Yes Status: Acute (8) Metabolic encephalopathy Current Visit: Yes Status: Acute (9) Oropharyngeal dysphagia Current Visit: Yes Status: Acute (10) Severe protein-calorie malnutrition Current Visit: Yes Status: Acute Physician Review Additional Text: Impression: Sepsis secondary to UTI, urine culture positive for E coli Severe hypernatremia COVID 19 positive Metabolic encephalopathy related to above History of CVA Oropharyngeal dysphagia Alzheimer's dementia without behavioral disturbance Severe protein malnutrition Anemia likely of chronic disease Plan: Sepsis secondary to UTI, urine culture positive for E coli: Stable. Waiting for approval on [facility]. Patient finished 7 days of antibiotic therapy. Awaiting approval to go to [facility] with hospice in place that take COVID positive patients. Will try to get a repeat COVID 19 test Severe hypernatremia: Hypernatremia resolved. IV fluids discontinued. Appreciate Nephrology COVID 19 positive: Continue as above Metabolic encephalopathy related to above: This may be related to above and poor nutrition Patient is slated for hospice. History of CVA: Stable. Oropharyngeal dysphagia: Possibly contributed by Alzheimer's dementia. Alzheimer's dementia without behavioral disturbance: Stable Severe protein malnutrition: Hospice and comfort feeding. Anemia likely of chronic disease: Hospice. Disposition: awaiting placement in a [facility] Possibly will do a repeat test of COVID 19 . . Time Spent Managing Pts Care (In Minutes): 35
--- NOTE | 2020-02-01 14:29 | P.PN ---
Date of Service: 02/01/20 Subjective: Patient is a 69 year old female [facility] resident who presents with altered mental status and fever. Patient found to have UTI and tested positive for covid-19 which I have been consulted for. Patient has history of CVA and is poor historian. Patient examined through glass door. Patient stable. Not in any acute distress, not requiring supplemental oxygen. Patient still with poor appetite. Per nurse, no new changes in the past 24 hours. Objective: Temp Pulse Resp BP Pulse Ox 98.3 F 111 H 20 154/55 H 99 02/01/20 14:11 02/01/20 14:11 02/01/20 14:11 02/01/20 14:11 02/01/20 14:11 Labs: No new labs available Chest x-ray 01/22: EXAM DESCRIPTION: RAD - Chest Single View - 01/23/2020 2:10 pm CLINICAL HISTORY: Evaluate for Aspiration Chest pain. COMPARISON: Chest Single View dated 01/18/2020; Chest Single View dated 12/22/2019; CHEST SINGLE VIEW dated 09/19/2010; CHEST SINGLE VIEW dated 09/17/2010 FINDINGS: Portable technique limits examination quality. Cqdh-[id number] infiltrate is present in the left base likely representing pneumonia. The heart is normal in size. No displaced fractures. IMPRESSION: Left lower lobe infiltrate/ pneumonia. Assessment and plan: 01/17 Covid 19 positive, repeat covid testing done 01/22 positive, Will order a repeat test Leukocytosis, no new CBC Fevers resolved UTI, urine culture positive for E. Coli Completed Bactrim for total of 7 days, Will repeat urine culture Blood cultures positive for staph coag negative, most likely from contamination CSF culture negative Patients awaiting approval to return to halfway Will continue to monitor Patient discussed with Dr. Sanford
[2020-02-01 16:59] LABS: Urine Appearance CLOUDY; Urine Bilirubin NEGATIVE (NEG); Urine Blood NEGATIVE (NEG); Urine Color YELLOW; Urine Glucose NEGATIVE (NEG); Urine Protein NEGATIVE (NEG)
[2020-02-01 17:53] LABS: Urine Bacteria 20-50 /HPF (<20); Urine Culture Reflex Order REFLEXED; Urine Mucus 2+ /HPF (NONE SEEN); Urine RBC <5 /HPF (NONE SEEN)
[2020-02-01] MEDS: ATORVASTATIN 10 MG TAB PO SCH (19:57)
[2020-02-01] MEDS: OLANZapine 10 MG TABLET PO SCH (19:57)
[2020-02-01] MEDS: ACETAMINOPHEN 500 MG TAB PO PRN (19:58)
--- NOTE | 2020-02-01 22:33 | PN ---
Date of Progress Note: 02/01/2020 History Of Present Illness: The patient was admitted with COVID pneumonia. Patient was treated, rec overed. Patient had acute kidney injury secondary to COVID nephropathy, prerenal. Physical Examination: Vital Signs: When I saw the patient, blood pressure 135/75, pulse of 110, afebrile. Chest: Faint rales on the left base. Heart: S1, S2. Regular. Tachycardic. Abdomen: Soft nontender. Extremities: No edema. Neuro: The patient is slightly confused. Laboratory Data: WBC 16.3, H and H 8.2/25.6, platelets 325. Sodium 138, potassium 4, bicarb 23, BUN 12, creatinine 0.4, calcium 7.9, phosphorus 2.9, magnesium of 2. Current Medications: The patient is on include breathing treatment, Lovenox, metoprolol, Tylenol, luu loperidol, zinc sulfate, levothyroxine. Assessment And Plan: 1.Acute kidney injury, multifactorial, secondary to prerenal/COVID nephropathy, recovered, resolved. 2.Hypertension. Controlled, optimal. Continue current medication. 3.Hypernatremia, resolved. 4.Hypokalemia, status post supplement. 5.Urinary tract infection secondary to Escherichia coli. Continue Bactrim. 6.Coronavirus disease 2019 pneumonia, status post treatment. We will follow up with Pulmonary. BILL/THOMAS Voice ID: [id number] Report ID: [id number]
[2020-02-02] MEDS: LEVOTHYROXINE SOD 0.05 MG TABLET PO SCH (05:58)
[2020-02-02] MEDS: SCOPOLAMINE HYDROBROMIDE PATCH TD SCH (08:09)
[2020-02-02] MEDS: ZINC SULFATE 220 MG CAP PO SCH (08:09)
[2020-02-02] MEDS: FAMOTIDINE 20 MG TAB PO SCH (08:09)
[2020-02-02] MEDS: ASPIRIN 81 MG CHEWABLE TABLET PO SCH (08:09)
[2020-02-02] MEDS: VITAMIN D 1000 UNIT TAB PO SCH (08:09)
[2020-02-02] MEDS: ASCORBIC ACID 500 MG TABLET PO SCH (08:09)
[2020-02-02] MEDS: ENOXAPARIN 40 MG/0.4 ML SQ SCH (08:10)
[2020-02-02] MEDS: CARBAMAZEPINE PO SCH (08:10)
[2020-02-02] MEDS: ENSURE ENLIVE 237 ML CAN PO SCH (08:10)
[2020-02-02 09:12] VITALS: O2SAT 97
--- NOTE | 2020-02-02 10:33 | P.PN ---
Subjective Date of Service: 02/02/20 Chief Complaint: Altered mental status examination deferred to hospitalist due to COVID 19 regulations Subjective pt is a poor historian, HX obtained from chart 69-year-old half-way resident with a history of CVA, dysphagia, COPD pt was sent from SNF for fever in ER Cr 1.6, NA 161 COVID +ve today no overnight events stable VS euvolemic , no need for lasix Physical Examination: general: Alert, NAD Neck; Supple, No elevated JVD hear: RRR, normal S1,2 no murmur or rub Chest: CTAB, no rlaes or wheezes Abdomen: Soft , Nt Extremities No edema or ulcer A/P NATHNAIEL due to dehydration resolved COVID 19 cont supportive care plan for possible convalescent plasm hypernatremia and hyperchloremia due to dehydration cont D5w sepsis due to UTI and COVID UTI cont abx Hypokalemia , hypophosphatemia and hypomagnesemia due to poor oral intake resolved hypothyrodism on synthroid total time spent 35min Allergies No Known Allergies Allergy (Verified 01/19/20 00:10) Home Medications: Aspirin 81 mg PO DAILY 01/19/20 Atorvastatin Calcium 10 mg PO BEDTIME 01/19/20 Carbamazepine [Tegretol Xr] 1 tab PO BID 01/19/20 Hydrocortisone Cream [Hydrocortisone 1% Cream] 1 appl TOP BID 01/19/20 Megestrol Acetate 400 mg PO BID 01/19/20 Metformin ER [Glucophage ER] 500 mg PO BID 01/19/20 OLANZapine [Zyprexa*] 1 tab PO BEDTIME 01/19/20 Omeprazole 20 mg PO DAILY 01/19/20 - Past Medical/Surgical History Diabetic: No -: CVA -: Dysphagia -: COPD -: Ataxia -: Depression -: Dementia - Social History Smoking Status: Unknown if ever smoked Alcohol use: No CD- Drugs: No Place of Residence: Skilled Nursing Physical Examination Physical Examination - Vital Signs Temperature: 98.7 F Blood Pressure: 119/66 Pulse: 91 Respirations: 18 Pulse Ox (%): 98 - Studies Medications List Reviewed: Yes
--- NOTE | 2020-02-02 13:03 | P.PN ---
Subjective Date of Service: 02/02/20 Chief Complaint: Altered mental status Subjective: No new changes Review of Systems is unable to be obtained Physical Examination - Vital Signs Temperature: 98.7 F Blood Pressure: 119/66 Pulse: 91 Respirations: 18 Pulse Ox (%): 98 - Physical Exam General: Alert, In no apparent distress, Confused HEENT: Atraumatic, Normocephalic Neck: Supple Respiratory: Clear to auscultation bilaterally Cardiovascular: Regular rate/rhythm, Normal S1 S2 Capillary refill: <2 Seconds Gastrointestinal: Soft and benign, W/out hepatosplenomegaly Musculoskeletal: No clubbing, No swelling Integumentary: No rashes Neurological: Other (Alert , Awake , Confused , Moves all the limbs ) Lymphatics: No axilla or inguinal lymphadenopathy Rectal: Deferred - Studies Medications List Reviewed: Yes Assessment & Plan - Problems (Diagnosis) (1) Acute cystitis without hematuria Current Visit: Yes Status: Acute (2) Acute renal failure Current Visit: Yes Status: Acute (3) Coronavirus infection Current Visit: Yes Status: Acute (4) Dementia Current Visit: Yes Status: Acute (5) Elevated troponin Current Visit: Yes Status: Acute (6) History of CVA (cerebrovascular accident) Current Visit: Yes Status: Acute (7) Hypernatremia Current Visit: Yes Status: Acute (8) Metabolic encephalopathy Current Visit: Yes Status: Acute (9) Oropharyngeal dysphagia Current Visit: Yes Status: Acute (10) Severe protein-calorie malnutrition Current Visit: Yes Status: Acute Physician Review Additional Text: Impression: Sepsis secondary to UTI, urine culture positive for E coli Severe hypernatremia COVID 19 positive Metabolic encephalopathy related to above History of CVA Oropharyngeal dysphagia Alzheimer's dementia without behavioral disturbance Severe protein malnutrition Anemia likely of chronic disease Plan: Sepsis secondary to UTI, urine culture positive for E coli: Stable. Patient finished 7 days of antibiotic therapy. Repeat urine culture pending Awaiting approval to go to senior living with hospice in place that take COVID positive patients. Repeat COVID 19 test pending Severe hypernatremia: Hypernatremia resolved. Appreciate Nephrology COVID 19 positive: Continue as above Metabolic encephalopathy related to above: This may be related to above and poor nutrition Patient is slated for hospice. History of CVA: Stable. Oropharyngeal dysphagia: Possibly contributed by Alzheimer's dementia. Alzheimer's dementia without behavioral disturbance: Stable Severe protein malnutrition: Hospice and comfort feeding. Anemia likely of chronic disease: Hospice. Disposition: awaiting placement in a senior living Repeat test of COVID 19 awaiting . . Time Spent Managing Pts Care (In Minutes): 35
--- NOTE | 2020-02-02 15:48 | P.PN ---
Date of Service: 02/02/20 Subjective: Patient is a 69 year old female intermediate resident who presents with altered mental status and fever. Patient found to have UTI and tested positive for covid-19 which I have been consulted for. Patient has history of CVA and is poor historian. Patient examined through glass door. Patient stable. Not in any acute distress, not requiring supplemental oxygen. Patient still with poor appetite. Per nurse, no new changes in the past 24 hours. Objective: Temp Pulse Resp BP Pulse Ox 98.7 F 91 H 18 119/66 98 02/02/20 13:03 02/02/20 13:03 02/02/20 13:03 02/02/20 13:03 02/02/20 13:03 Labs: No new labs available Chest x-ray 01/22: EXAM DESCRIPTION: RAD - Chest Single View - 01/23/2020 2:10 pm CLINICAL HISTORY: Evaluate for Aspiration Chest pain. COMPARISON: Chest Single View dated 01/18/2020; Chest Single View dated 12/22/2019; CHEST SINGLE VIEW dated 09/19/2010; CHEST SINGLE VIEW dated 09/17/2010 FINDINGS: Portable technique limits examination quality. [id number] infiltrate is present in the left base likely representing pneumonia. The heart is normal in size. No displaced fractures. IMPRESSION: Left lower lobe infiltrate/ pneumonia. Assessment and plan: 01/17 Covid 19 positive, repeat covid testing done 01/22 positive, repeat test pending Leukocytosis, no new CBC Fevers resolved UTI, urine culture positive for E. Coli, repeat culture positive for non-beta hemolytic strep awaiting full report Completed Bactrim for total of 7 days Will start on Unasyn 1.5g q8h x5 days Blood cultures positive for staph coag negative, most likely from contamination CSF culture negative Patients awaiting approval to return to intermediate Will continue to monitor Patient discussed with Dr. Sanford
--- NOTE | 2020-02-02 16:01 | P.DS ---
Admission Date: 01/18/20 Discharge Date: 02/02/20 Disposition: TRANSFER TO LONGTERM Discharge Condition: FAIR Reason for Admission: Altered mental status - Problems (1) Acute cystitis without hematuria Current Visit: Yes Status: Acute (2) Acute renal failure Current Visit: Yes Status: Acute (3) Coronavirus infection Current Visit: Yes Status: Acute (4) Dementia Current Visit: Yes Status: Acute (5) Elevated troponin Current Visit: Yes Status: Acute (6) History of CVA (cerebrovascular accident) Current Visit: Yes Status: Acute (7) Hypernatremia Current Visit: Yes Status: Acute (8) Metabolic encephalopathy Current Visit: Yes Status: Acute (9) Oropharyngeal dysphagia Current Visit: Yes Status: Acute (10) Severe protein-calorie malnutrition Current Visit: Yes Status: Acute Brief History of Present Illness: 69-year-old [facility] resident with a history of CVA, oropharyngeal dysphagia, COPD was brought from a nursing to the emergency department due to altered mental status of a few days duration, and fever. Per report patient had a fever of 100.8. No reports of diarrhea or nausea or vomiting. Temperature of 100.4 was recorded in the ED. Blood work revealed hypernatremia, acute renal failure, leukocytosis, mildly elevated troponin and anemia. Chest x-ray showed no acute disease. UA shows evidence of UTI. Patient meets criteria for sepsis with fever and leukocytosis. Test for Covid 19 has been obtained. She is admitted for further management. Hospital Course: Sepsis secondary to UTI, urine culture positive for E coli Severe hypernatremia COVID 19 positive Metabolic encephalopathy related to above History of CVA Oropharyngeal dysphagia Alzheimer's dementia without behavioral disturbance Severe protein malnutrition Anemia likely of chronic disease Course Sepsis secondary to UTI, urine culture positive for E coli: Patient finished 7 days of antibiotic therapy. Repeat urine culture pending Awaiting approval to go to [facility] with hospice in place that take COVID positive patients. Repeat COVID 19 test pending Severe hypernatremia: Hypernatremia resolved. Appreciate Nephrology COVID 19 positive: Continue as above Metabolic encephalopathy related to above: This may be related to above and poor nutrition Patient is slated for hospice. History of CVA: Stable. Oropharyngeal dysphagia: Possibly contributed by Alzheimer's dementia. Alzheimer's dementia without behavioral disturbance: Stable Severe protein malnutrition: Hospice and comfort feeding. Anemia likely of chronic disease: Hospice. Disposition: awaiting placement in a [facility] Vital Signs/Physical Exam: Temp Pulse Resp BP Pulse Ox 98.7 F 91 H 18 119/66 98 02/02/20 15:46 02/02/20 15:46 02/02/20 15:46 02/02/20 15:46 02/02/20 15:46 General: Alert, In no apparent distress HEENT: Atraumatic, Normocephalic Neck: Supple Cardiovascular: No edema Gastrointestinal: Soft and benign Neurological: Other (Alert , Awake) Laboratory Data at Discharge: WBC 16.3 K/uL (4.3-10.9) H D 01/21/20 04:00 Hgb 8.2 g/dL (12.0-15.0) L 01/21/20 04:00 Hct 25.6 % (36.0-45.0) L 01/21/20 04:00 Plt Count 325 K/uL (152-406) 01/21/20 04:00 PT 12.9 SECONDS (9.5-12.5) H 01/18/20 20:00 INR 1.10 01/18/20 20:00 APTT 31.4 SECONDS (24.3-36.9) 01/18/20 20:00 Sodium 138 mmol/L (136-145) 01/30/20 03:15 Potassium 4.0 mmol/L (3.5-5.1) 01/30/20 03:15 BUN 12 mg/dL (7-18) 01/30/20 03:15 Creatinine 0.49 mg/dL (0.55-1.3) L 01/30/20 03:15 Glucose 112 mg/dL (74-106) H 01/30/20 03:15 Uric Acid 8.7 mg/dL (2.6-6.0) H 01/19/20 01:17 Phosphorus 2.9 mg/dL (2.5-4.9) 01/30/20 03:15 Magnesium 2.0 mg/dL (1.8-2.4) 01/30/20 03:15 Total Bilirubin 0.3 mg/dL (0.2-1.0) 01/21/20 04:00 AST 15 U/L (15-37) 01/21/20 04:00 ALT 12 U/L (12-78) 01/21/20 04:00 Alkaline Phosphatase 62 U/L (45-117) 01/21/20 04:00 Troponin I 0.05 ng/mL (0.0-0.045) H 01/19/20 04:55 Amylase 68 U/L (25-115) 01/18/20 20:00 Lipase 145 U/L (73-393) 01/18/20 20:00 Home Medications: Aspirin 81 mg PO DAILY 01/19/20 Atorvastatin Calcium 10 mg PO BEDTIME 01/19/20 Carbamazepine [Tegretol Xr] 1 tab PO BID 01/19/20 Hydrocortisone Cream [Hydrocortisone 1% Cream*] 1 appl TOP BID 01/19/20 Megestrol Acetate 400 mg PO BID 01/19/20 Metformin ER [Glucophage ER] 500 mg PO BID 01/19/20 OLANZapine [Zyprexa*] 1 tab PO BEDTIME 01/19/20 Omeprazole 20 mg PO DAILY 01/19/20 Albuterol Inhaler [Ventolin Inhaler*] 2 puff IH Q6H PRN #1 hfa.aer.ad 02/02/20 Ascorbic Acid [Vitamin C*] 500 mg PO DAILY #30 tablet 02/02/20 Cholecalciferol (Vitamin D3) [Vitamin D 1000 Iu Tab*] 1,000 unit PO DAILY #30 tab 02/02/20 Ensure Enlive 237 ml PO BID #60 can 02/02/20 Levothyroxine [Synthroid*] 0.05 mg PO DAILYAC #30 tablet 02/02/20 Zinc Sulfate [Zinc Sulfate*] 220 mg PO DAILY #30 cap 02/02/20 New Medications: Ensure Enlive 237 ml PO BID #60 can Levothyroxine [Synthroid*] 0.05 mg PO DAILYAC #30 tablet Albuterol Inhaler [Ventolin Inhaler*] 2 puff IH Q6H PRN #1 hfa.aer.ad PRN Reason: Shortness Of Breath Ascorbic Acid [Vitamin C*] 500 mg PO DAILY #30 tablet Cholecalciferol (Vitamin D3) [Vitamin D 1000 Iu Tab*] 1,000 unit PO DAILY #30 tab Zinc Sulfate [Zinc Sulfate*] 220 mg PO DAILY #30 cap Diet: Regular Activity: Ad adriana
[2020-02-02] MEDS ORDERED: AMPICILLIN/SULBACT 1.5GM VIAL IVPB SCH (17:00)
[2020-02-02 17:01] VITALS: BP 140/78; TEMP 97.9
== END 2020-02-02 18:57 | DRG 871 ==
LOC: ER 19:14 → ERHOLD 22:40 → 4TH 01-19 07:19
PROVIDERS: ADMIT Internal Medicine; ATTEND Internal Medicine
PROC: 8E0ZXY6 Isolation (ICD-10-PCS; principal; 2020-01-18)
PROC: 009U3ZX Drainage of Spinal Canal, Percutaneous Approach, Diagnostic (ICD-10-PCS; 2020-01-18)
DX: A41.89 Other specified sepsis (principal); G93.41 Metabolic encephalopathy; E43 Unspecified severe protein-calorie malnutrition; U07.1 COVID-19; J12.89 Other viral pneumonia; N30.00 Acute cystitis without hematuria; E87.0 Hyperosmolality and hypernatremia; N17.9 Acute kidney failure, unspecified; Z68.1 Body mass index [BMI] 19.9 or less, adult; F02.81 Dementia in other diseases classified elsewhere, unspecified severity, with behavioral disturbance; J44.0 Chronic obstructive pulmonary disease with (acute) lower respiratory infection; Z79.82 Long term (current) use of aspirin; Z79.84 Long term (current) use of oral hypoglycemic drugs; Z79.899 Other long term (current) drug therapy; Z86.73 Personal history of transient ischemic attack (TIA), and cerebral infarction without residual deficits; R13.12 Dysphagia, oropharyngeal phase; R79.89 Other specified abnormal findings of blood chemistry; E86.0 Dehydration; K21.9 Gastro-esophageal reflux disease without esophagitis; E78.5 Hyperlipidemia, unspecified; B96.89 Other specified bacterial agents as the cause of diseases classified elsewhere; Z66 Do not resuscitate; G30.9 Alzheimer's disease, unspecified; E87.8 Other disorders of electrolyte and fluid balance, not elsewhere classified; E03.9 Hypothyroidism, unspecified; E83.39 Other disorders of phosphorus metabolism; D64.9 Anemia, unspecified; B96.20 Unspecified Escherichia coli [E. coli] as the cause of diseases classified elsewhere; D63.8 Anemia in other chronic diseases classified elsewhere; R00.0 Tachycardia, unspecified; I10 Essential (primary) hypertension
CPT/HCPCS: 36415; 62270; 70450; 71045; 80048; 80053; 80069; 80076; 81001; 81003; 81015; 82150; 82550; 82553; 82728; 82945; 82947; 83605; 83690; 83735; 84100; 84132; 84145; 84157; 84300; 84443; 84484; 84550; 85025; 85610; 85730; 86850; 86900; 86901; 87040; 87070; 87077; 87086; 87088; 87186; 87205; 89050; 93005; 94760; 96365; 99285; J0456; J0692; J0696; J1630; J1644; J1650; J1940; J2405; J2543; J3010; J3475; J3486; J7030; J7040; J7799; U0002